=== PATIENT | female | born 1960 | race African-American/Black ===

== ENCOUNTER 2022-06-13 07:39 | Inpatient (IN) | payer OTHER ==
[2022-06-13] MEDS ORDERED: ACETAMINOPHEN 1000 MG/100 ML BAG IVPB ONE (08:14)
[2022-06-13] MEDS ORDERED: SODIUM CHLORIDE 0.9% 500 ML INFUS.BAG IV ONE ×2 (08:14→09:32)
[2022-06-13] MEDS ORDERED: PANTOPRAZOLE SODIUM 40 MG VIAL IVPUSH ONE (08:31)
[2022-06-13 08:32] LABS: EOS % 0.1 % (0-4.5); HEMATOCRIT 25.3 % (32.4-45.2); HEMOGLOBIN 8.3 GM/dL (10.7-15.3); LYMPH % 21.3 % (8-40); MCH 29.2 pg (25.7-33.7); MCHC 32.7 g/dl (32.0-36.0); MEAN CELL VOLUME 89.4 fl (80-96); MEAN PLT VOLUME 7.9 fl (7.5-11.1); MONO % 7.8 % (3.8-10.2); NEUT % 69.8 % (42.8-82.8); PLATELET COUNT 194 10^3/uL (134-434); RBC 2.83 M/mm3 (3.60-5.2); RDW 16.4 % (11.6-15.6); WHITE BLOOD COUNT 4.5 K/mm3 (4.0-10.0)
[2022-06-13 08:38] LABS: INR 1.23 (0.83-1.09); PROTHROMBIN TIME (PATIENT) 14.2 SEC (9.7-13.0)
[2022-06-13 08:40] LABS: ACTIVATED PTT 34.8 SECONDS (25.2-36.5)
[2022-06-13 08:41] LABS: VENOUS BASE EXCESS 6.1 mmol/L (-2-2); VENOUS O2 SATURATION 86.7 % (70-80); VENOUS PH 7.459 (7.310-7.410)
[2022-06-13] MEDS ORDERED: CEFEPIME HCL/D5W 1 GM/50 ML BAG IVPB ONE (08:41)
[2022-06-13] MEDS ORDERED: VANCOMYCIN 1,000 MG in DEXTROSE 5%-WATER - 250 ML IVPB ONE (08:41)
[2022-06-13 08:43] LABS: PH,URINE 7.5 (5.0-8.0); URINE APPEARANCE CLEAR; URINE BILIRUBIN NEGATIVE (NEGATIVE); URINE COLOR YELLOW; URINE GLUCOSE (UA) 2+ (NEGATIVE); URINE KETONE NEGATIVE (NEGATIVE); URINE LEUK ESTERASE NEGATIVE (NEGATIVE); URINE NITRITE NEGATIVE (NEGATIVE); URINE PROTEIN TRACE (NEGATIVE); URINE UROBILINOGEN 0.2 mg/dL (0.2-1.0)
[2022-06-13 08:47] LABS: CHLORIDE 106 mmol/L (98-107); SODIUM 143 mmol/L (136-145)
[2022-06-13 08:48] LABS: CALCIUM 8.5 mg/dL (8.5-10.1)
[2022-06-13 08:49] LABS: ALBUMIN 2.7 g/dl (3.4-5.0); ANION GAP 8 MMOL/L (8-16); BLOOD UREA NITROGEN 22.4 mg/dL (7-18); CO2 29 mmol/L (21-32); GLUCOSE,RANDOM 361 mg/dL (74-106)
[2022-06-13 08:52] LABS: CREATININE 0.8 mg/dL (0.55-1.3); SGOT/AST 86 U/L (15-37); SGPT/ALT 94 U/L (13-61)
[2022-06-13 08:53] LABS: TOT PROT 6.9 g/dl (6.4-8.2)
[2022-06-13] MEDS ORDERED: VANCOMYCIN/WATER FOR INJ (PEG) 1,000 MG/200 ML BAG IVPB ONE (08:53)
[2022-06-13 08:54] LABS: BILIRUBIN,TOTAL 0.4 mg/dL (0.2-1)
[2022-06-13] MEDS ORDERED: CEFEPIME 1 GM/100 ML BAG IVPB ONE (08:54)
[2022-06-13 08:55] LABS: ALK PHOS 127 U/L (45-117)
[2022-06-13] MEDS ORDERED: ACYCLOVIR INJECTION 560 MG in DEXTROSE 5%-WATER - 100 ML IVPB ONE (17:26)
[2022-06-13 17:32] LABS: CSF APPEARANCE BLOODY (CLEAR); CSF COLOR RED (COLORLESS)
[2022-06-13 19:03] LABS: BF GLUCOSE (CSF ONLY) 234 mg/dL (40-70)
[2022-06-14 04:39] VITALS: BMI 28.5
[2022-06-14 07:16] LABS: BASO % 0.4 % (0-2.0); EOS % 2.4 % (0-4.5); HEMATOCRIT 22.5 % (32.4-45.2); HEMOGLOBIN 7.2 GM/dL (10.7-15.3); LYMPH % 17.9 % (8-40); MCH 28.5 pg (25.7-33.7); MCHC 31.8 g/dl (32.0-36.0); MEAN CELL VOLUME 89.5 fl (80-96); MONO % 12.1 % (3.8-10.2); NEUT % 67.2 % (42.8-82.8); PLATELET COUNT 133 10^3/uL (134-434); RBC 2.51 M/mm3 (3.60-5.2); RDW 16.4 % (11.6-15.6); WHITE BLOOD COUNT 3.1 K/mm3 (4.0-10.0)
[2022-06-14 07:45] LABS: ALBUMIN 2.6 g/dl (3.4-5.0); BLOOD UREA NITROGEN 9.7 mg/dL (7-18); CALCIUM 8.7 mg/dL (8.5-10.1)
[2022-06-14 07:47] LABS: CREATININE 0.4 mg/dL (0.55-1.3)
[2022-06-14 07:49] LABS: BILIRUBIN,TOTAL 0.7 mg/dL (0.2-1); TOT PROT 6.2 g/dl (6.4-8.2)
[2022-06-14] MEDS ORDERED: SODIUM CHLORIDE 0.45%/POT 20 MEQ/1,000 ML INFUS.BAG IV SCH (08:45)
[2022-06-14] MEDS ORDERED: FUROSEMIDE 40 MG/4 ML INJECTABLE VIAL IVPUSH ONE (09:00)
[2022-06-14] MEDS: KCL 10 MEQ IVPB 10 MEQ/100 ML INFUS.BAG IVPB SCH ×2 (09:23→10:45)
[2022-06-14] MEDS ORDERED: FENTANYL PATCH WASTE TD PRN (10:57)
[2022-06-14] MEDS ORDERED: PANTOPRAZOLE SODIUM 40 MG VIAL IVPUSH SCH (11:00)
[2022-06-14] MEDS ORDERED: fentaNYL 25mcg/hr PATCH.TD72 TD SCH (11:00)
[2022-06-14] MEDS ORDERED: PIPERACILLIN/TAZOB 3.375 GM 3.375 GM in DEXTROSE 5%-WATER - 50 ML IVPB SCH ×2 (11:15→11:45)
[2022-06-14 11:25] LABS: MAGNESIUM 2.1 mg/dL (1.8-2.4)
[2022-06-14] MEDS: INSULIN (NOVOLOG) ASPART 100 UNITS/ML 10ML VIAL SQ SCH ×3 (11:25→21:12)
[2022-06-14] MEDS: AMINO ACIDS 4.25%/D5W 1,000 ML IV SCH (14:04)
[2022-06-14] MEDS: ARTIFICIAL TEARS (POLYVINYL ALCOHOL) OPTH DROPS OU SCH ×2 (14:51→21:12)
[2022-06-14] MEDS: VANCOMYCIN/WATER FOR INJ (PEG) 1,000 MG/200 ML BAG IVPB SCH (15:11)
[2022-06-14] MEDS: CEFEPIME 1 GM in DEXTROSE 5%-WATER 100 ML IVPB SCH (15:11)
[2022-06-14] MEDS: ACYCLOVIR INJECTION 600 MG in DEXTROSE 5%-WATER - 100 ML IVPB SCH (15:52)
[2022-06-14] MEDS: ATORVASTATIN CA 20 MG TABLET (FP) GT SCH (21:11)
[2022-06-14] MEDS: POLYETHYLENE GLYCOL (HEALTHYLAX) 3350 17 GM PACKET GT SCH (21:11)
[2022-06-14] MEDS: levETIRAcetam 500 MG/5 ML ORAL SOLUTION (UNIT-DOSE CUPS) GT SCH (21:12)
[2022-06-15] MEDS: CEFEPIME 1 GM in DEXTROSE 5%-WATER 100 ML IVPB SCH ×3 (01:31→17:51)
[2022-06-15] MEDS: ACYCLOVIR INJECTION 600 MG in DEXTROSE 5%-WATER - 100 ML IVPB SCH ×3 (01:31→17:51)
[2022-06-15] MEDS: VANCOMYCIN/WATER FOR INJ (PEG) 1,000 MG/200 ML BAG IVPB SCH ×2 (03:08→14:33)
[2022-06-15] MEDS: INSULIN (NOVOLOG) ASPART 100 UNITS/ML 10ML VIAL SQ SCH ×4 (06:27→21:16)
[2022-06-15] MEDS: ARTIFICIAL TEARS (POLYVINYL ALCOHOL) OPTH DROPS OU SCH ×3 (06:27→21:14)
[2022-06-15 06:46] LABS: BASO % 0.8 % (0-2.0); EOS % 5.1 % (0-4.5); HEMATOCRIT 27.4 % (32.4-45.2); HEMOGLOBIN 8.8 GM/dL (10.7-15.3); LYMPH % 24.7 % (8-40); MCH 28.2 pg (25.7-33.7); MCHC 32.2 g/dl (32.0-36.0); MEAN CELL VOLUME 87.7 fl (80-96); MEAN PLT VOLUME 8.4 fl (7.5-11.1); MONO % 14.9 % (3.8-10.2); NEUT % 54.5 % (42.8-82.8); PLATELET COUNT 124 10^3/uL (134-434); RBC 3.12 M/mm3 (3.60-5.2)
[2022-06-15 06:52] LABS: CALCIUM 8.5 mg/dL (8.5-10.1)
[2022-06-15 06:53] LABS: BLOOD UREA NITROGEN 11.6 mg/dL (7-18)
[2022-06-15 06:56] LABS: CREATININE 0.4 mg/dL (0.55-1.3)
[2022-06-15] MEDS: KCL 10 MEQ IVPB 10 MEQ/100 ML INFUS.BAG IVPB SCH ×2 (09:00→11:10)
[2022-06-15] MEDS: PANTOPRAZOLE SODIUM 40 MG VIAL IVPUSH SCH (10:20)
[2022-06-15] MEDS: POLYETHYLENE GLYCOL (HEALTHYLAX) 3350 17 GM PACKET GT SCH ×2 (10:20→21:14)
[2022-06-15] MEDS: levETIRAcetam 500 MG/5 ML ORAL SOLUTION (UNIT-DOSE CUPS) GT SCH ×2 (10:20→21:14)
[2022-06-15] MEDS: AMINO ACIDS 4.25%/D5W 1,000 ML IV SCH (11:10)
[2022-06-15] MEDS: ATORVASTATIN CA 20 MG TABLET (FP) GT SCH (21:14)
[2022-06-16] MEDS: CEFEPIME 1 GM in DEXTROSE 5%-WATER 100 ML IVPB SCH ×3 (01:12→17:21)
[2022-06-16] MEDS: ACYCLOVIR INJECTION 600 MG in DEXTROSE 5%-WATER - 100 ML IVPB SCH ×3 (01:13→17:22)
[2022-06-16] MEDS: VANCOMYCIN/WATER FOR INJ (PEG) 1,000 MG/200 ML BAG IVPB SCH ×2 (02:01→14:32)
[2022-06-16] MEDS: ARTIFICIAL TEARS (POLYVINYL ALCOHOL) OPTH DROPS OU SCH ×3 (05:54→21:20)
[2022-06-16] MEDS: INSULIN (NOVOLOG) ASPART 100 UNITS/ML 10ML VIAL SQ SCH ×4 (06:37→21:20)
[2022-06-16 07:53] LABS: CALCIUM 8.9 mg/dL (8.5-10.1)
[2022-06-16 07:54] LABS: ALBUMIN 2.6 g/dl (3.4-5.0); BLOOD UREA NITROGEN 11.8 mg/dL (7-18); MAGNESIUM 1.9 mg/dL (1.8-2.4)
[2022-06-16 07:56] LABS: CREATININE 0.4 mg/dL (0.55-1.3)
[2022-06-16 07:58] LABS: BILIRUBIN,TOTAL 0.6 mg/dL (0.2-1); TOT PROT 6.1 g/dl (6.4-8.2)
[2022-06-16] MEDS: levETIRAcetam 500 MG/5 ML ORAL SOLUTION (UNIT-DOSE CUPS) GT SCH ×2 (09:27→21:20)
[2022-06-16] MEDS: POLYETHYLENE GLYCOL (HEALTHYLAX) 3350 17 GM PACKET GT SCH ×2 (09:27→21:20)
[2022-06-16] MEDS: PANTOPRAZOLE SODIUM 40 MG VIAL IVPUSH SCH (09:28)
[2022-06-16] MEDS: AMINO ACIDS 4.25%/D5W 1,000 ML IV SCH (11:00)
[2022-06-16 12:55] LABS: BASO % 0.4 % (0-2.0); EOS % 3.9 % (0-4.5); HEMATOCRIT 27.4 % (32.4-45.2); HEMOGLOBIN 8.8 GM/dL (10.7-15.3); MCH 28.3 pg (25.7-33.7); MCHC 32.2 g/dl (32.0-36.0); MEAN CELL VOLUME 87.9 fl (80-96); MEAN PLT VOLUME 8.4 fl (7.5-11.1); NEUT % 68.7 % (42.8-82.8); PLATELET COUNT 153 10^3/uL (134-434); RBC 3.12 M/mm3 (3.60-5.2); RDW 16.8 % (11.6-15.6); WHITE BLOOD COUNT 2.5 K/mm3 (4.0-10.0)
[2022-06-16] MEDS: ATORVASTATIN CA 20 MG TABLET (FP) GT SCH (21:20)
[2022-06-17] MEDS: CEFEPIME 1 GM in DEXTROSE 5%-WATER 100 ML IVPB SCH ×3 (01:07→17:55)
[2022-06-17] MEDS: ACYCLOVIR INJECTION 600 MG in DEXTROSE 5%-WATER - 100 ML IVPB SCH ×3 (01:44→17:28)
[2022-06-17] MEDS: VANCOMYCIN/WATER FOR INJ (PEG) 1,000 MG/200 ML BAG IVPB SCH (03:02)
[2022-06-17] MEDS: ARTIFICIAL TEARS (POLYVINYL ALCOHOL) OPTH DROPS OU SCH ×3 (06:20→21:54)
[2022-06-17] MEDS: INSULIN (NOVOLOG) ASPART 100 UNITS/ML 10ML VIAL SQ SCH ×4 (06:22→23:01)
[2022-06-17 07:06] LABS: BASO % 0.5 % (0-2.0); EOS % 2.8 % (0-4.5); HEMATOCRIT 31.9 % (32.4-45.2); HEMOGLOBIN 10.1 GM/dL (10.7-15.3); MCH 28.2 pg (25.7-33.7); MCHC 31.7 g/dl (32.0-36.0); MEAN CELL VOLUME 88.8 fl (80-96); MEAN PLT VOLUME 8.6 fl (7.5-11.1); MONO % 10.3 % (3.8-10.2); NEUT % 62.4 % (42.8-82.8); PLATELET COUNT 187 10^3/uL (134-434); RBC 3.59 M/mm3 (3.60-5.2); RDW 16.5 % (11.6-15.6); WHITE BLOOD COUNT 3.1 K/mm3 (4.0-10.0)
[2022-06-17 07:57] LABS: CALCIUM 8.7 mg/dL (8.5-10.1)
[2022-06-17 08:00] LABS: CREATININE 0.4 mg/dL (0.55-1.3)
[2022-06-17] MEDS: KCL 10 MEQ IVPB 10 MEQ/100 ML INFUS.BAG IVPB SCH ×2 (09:13→11:20)
[2022-06-17] MEDS: levETIRAcetam 500 MG/5 ML ORAL SOLUTION (UNIT-DOSE CUPS) GT SCH ×2 (09:13→21:54)
[2022-06-17] MEDS: POLYETHYLENE GLYCOL (HEALTHYLAX) 3350 17 GM PACKET GT SCH ×2 (09:13→21:54)
[2022-06-17] MEDS: PANTOPRAZOLE SODIUM 40 MG VIAL IVPUSH SCH (09:18)
[2022-06-17] MEDS: AMINO ACIDS 4.25%/D5W 1,000 ML IV SCH (12:18)
[2022-06-17] MEDS ORDERED: ACETAMINOPHEN 1000 MG/100 ML BAG IVPB ONE (18:39)
[2022-06-17] MEDS: ATORVASTATIN CA 20 MG TABLET (FP) GT SCH (21:54)
[2022-06-18] MEDS: CEFEPIME 1 GM in DEXTROSE 5%-WATER 100 ML IVPB SCH ×3 (01:38→17:56)
[2022-06-18] MEDS: ACYCLOVIR INJECTION 600 MG in DEXTROSE 5%-WATER - 100 ML IVPB SCH ×3 (02:59→18:13)
[2022-06-18] MEDS: ARTIFICIAL TEARS (POLYVINYL ALCOHOL) OPTH DROPS OU SCH ×3 (07:11→21:36)
[2022-06-18] MEDS: INSULIN (NOVOLOG) ASPART 100 UNITS/ML 10ML VIAL SQ SCH ×4 (07:11→22:49)
[2022-06-18] MEDS: POLYETHYLENE GLYCOL (HEALTHYLAX) 3350 17 GM PACKET GT SCH ×2 (09:41→21:36)
[2022-06-18] MEDS: levETIRAcetam 500 MG/5 ML ORAL SOLUTION (UNIT-DOSE CUPS) GT SCH ×2 (09:41→21:37)
[2022-06-18] MEDS: PANTOPRAZOLE SODIUM 40 MG VIAL IVPUSH SCH (09:42)
[2022-06-18] MEDS: AMINO ACIDS 4.25%/D5W 1,000 ML IV SCH (12:44)
[2022-06-18] MEDS: ATORVASTATIN CA 20 MG TABLET (FP) GT SCH (21:37)
[2022-06-19] MEDS: CEFEPIME 1 GM in DEXTROSE 5%-WATER 100 ML IVPB SCH ×3 (01:24→17:42)
[2022-06-19] MEDS: ACYCLOVIR INJECTION 600 MG in DEXTROSE 5%-WATER - 100 ML IVPB SCH ×2 (02:09→10:15)
[2022-06-19] MEDS: ARTIFICIAL TEARS (POLYVINYL ALCOHOL) OPTH DROPS OU SCH ×3 (06:56→21:22)
[2022-06-19] MEDS: INSULIN (NOVOLOG) ASPART 100 UNITS/ML 10ML VIAL SQ SCH ×4 (06:56→21:20)
[2022-06-19 08:03] LABS: HEMATOCRIT 29.2 % (32.4-45.2); HEMOGLOBIN 9.4 GM/dL (10.7-15.3); MCH 28.4 pg (25.7-33.7); MCHC 32.3 g/dl (32.0-36.0); MEAN PLT VOLUME 8.4 fl (7.5-11.1); PLATELET COUNT 191 10^3/uL (134-434); RBC 3.32 M/mm3 (3.60-5.2); RDW 16.2 % (11.6-15.6); WHITE BLOOD COUNT 4.5 K/mm3 (4.0-10.0)
[2022-06-19 08:23] LABS: CHLORIDE 114 mmol/L (98-107); SODIUM 148 mmol/L (136-145)
[2022-06-19 08:29] LABS: ALBUMIN 2.7 g/dl (3.4-5.0); BLOOD UREA NITROGEN 9.6 mg/dL (7-18); CALCIUM 9.1 mg/dL (8.5-10.1); CO2 24 mmol/L (21-32); GLUCOSE,RANDOM 189 mg/dL (74-106)
[2022-06-19 08:31] LABS: CREATININE 0.4 mg/dL (0.55-1.3); SGOT/AST 20 U/L (15-37)
[2022-06-19 08:32] LABS: SGPT/ALT 28 U/L (13-61)
[2022-06-19 08:33] LABS: BILIRUBIN,TOTAL 0.3 mg/dL (0.2-1); TOT PROT 6.2 g/dl (6.4-8.2)
[2022-06-19 08:35] LABS: ALK PHOS 86 U/L (45-117)
[2022-06-19 08:36] LABS: ANION GAP 11 MMOL/L (8-16)
[2022-06-19 09:57] LABS: ANISOCYTOSIS 0; HELMET CELLS 0; HOWELL-JOLLY BODIES 0; MACROCYTOSIS 0; OVALOCYTE 0; ROULEAU 0; SICKELED CELLS 0; TARGET CELLS 0; TEAR DROP CELLS 0; TOXIC GRANULATION 0
[2022-06-19] MEDS ORDERED: MAGNESIUM 1GM/D5W - 1 GM/100 ML IVPB IVPB ONE (10:00)
[2022-06-19] MEDS: levETIRAcetam 500 MG/5 ML ORAL SOLUTION (UNIT-DOSE CUPS) GT SCH ×2 (10:24→21:22)
[2022-06-19] MEDS: KCL 10 MEQ IVPB 10 MEQ/100 ML INFUS.BAG IVPB SCH ×3 (10:24→13:31)
[2022-06-19] MEDS: POLYETHYLENE GLYCOL (HEALTHYLAX) 3350 17 GM PACKET GT SCH ×2 (10:24→21:20)
[2022-06-19] MEDS: PANTOPRAZOLE SODIUM 40 MG VIAL IVPUSH SCH (10:50)
[2022-06-19] MEDS: VANCOMYCIN/WATER FOR INJ (PEG) 1,000 MG/200 ML BAG IVPB SCH (13:31)
[2022-06-19] MEDS: AMINO ACIDS 4.25%/D5W 1,000 ML IV SCH (17:41)
[2022-06-19] MEDS: ATORVASTATIN CA 20 MG TABLET (FP) GT SCH (21:22)
[2022-06-20] MEDS: CEFEPIME 1 GM in DEXTROSE 5%-WATER 100 ML IVPB SCH ×3 (03:49→17:59)
[2022-06-20] MEDS: ARTIFICIAL TEARS (POLYVINYL ALCOHOL) OPTH DROPS OU SCH ×3 (06:16→21:40)
[2022-06-20] MEDS: INSULIN (NOVOLOG) ASPART 100 UNITS/ML 10ML VIAL SQ SCH ×4 (07:05→21:43)
[2022-06-20] MEDS: POLYETHYLENE GLYCOL (HEALTHYLAX) 3350 17 GM PACKET GT SCH ×2 (10:55→21:41)
[2022-06-20] MEDS: levETIRAcetam 500 MG/5 ML ORAL SOLUTION (UNIT-DOSE CUPS) GT SCH ×2 (10:56→21:41)
[2022-06-20] MEDS: PANTOPRAZOLE SODIUM 40 MG VIAL IVPUSH SCH (10:56)
[2022-06-20] MEDS: VANCOMYCIN/WATER FOR INJ (PEG) 1,000 MG/200 ML BAG IVPB SCH (13:00)
[2022-06-20 13:33] LABS: BASO % 0.3 % (0-2.0); EOS % 1.6 % (0-4.5); HEMATOCRIT 32.7 % (32.4-45.2); HEMOGLOBIN 10.6 GM/dL (10.7-15.3); LYMPH % 18.1 % (8-40); MCH 28.6 pg (25.7-33.7); MCHC 32.3 g/dl (32.0-36.0); MEAN CELL VOLUME 88.6 fl (80-96); MEAN PLT VOLUME 8.2 fl (7.5-11.1); MONO % 10.1 % (3.8-10.2); NEUT % 69.9 % (42.8-82.8); PLATELET COUNT 183 10^3/uL (134-434); RBC 3.69 M/mm3 (3.60-5.2); RDW 16.4 % (11.6-15.6); WHITE BLOOD COUNT 3.8 K/mm3 (4.0-10.0)
[2022-06-20 13:53] LABS: ALBUMIN 2.8 g/dl (3.4-5.0); BLOOD UREA NITROGEN 10.6 mg/dL (7-18); CALCIUM 8.8 mg/dL (8.5-10.1); MAGNESIUM 2.1 mg/dL (1.8-2.4)
[2022-06-20 13:56] LABS: CREATININE 0.4 mg/dL (0.55-1.3)
[2022-06-20 13:58] LABS: BILIRUBIN,TOTAL 0.4 mg/dL (0.2-1); TOT PROT 6.6 g/dl (6.4-8.2)
[2022-06-20] MEDS: AMINO ACIDS 4.25%/D5W 1,000 ML IV SCH (18:33)
[2022-06-20] MEDS: ATORVASTATIN CA 20 MG TABLET (FP) GT SCH (21:41)
[2022-06-21] MEDS: CEFEPIME 1 GM in DEXTROSE 5%-WATER 100 ML IVPB SCH ×3 (01:32→18:45)
[2022-06-21] MEDS: INSULIN (NOVOLOG) ASPART 100 UNITS/ML 10ML VIAL SQ SCH ×4 (06:34→21:58)
[2022-06-21] MEDS: ARTIFICIAL TEARS (POLYVINYL ALCOHOL) OPTH DROPS OU SCH ×3 (06:34→21:58)
[2022-06-21 08:01] LABS: BASO % 0.1 % (0-2.0); EOS % 0.7 % (0-4.5); HEMOGLOBIN 11.3 GM/dL (10.7-15.3); LYMPH % 7.4 % (8-40); MCH 29.5 pg (25.7-33.7); MCHC 33.3 g/dl (32.0-36.0); MEAN CELL VOLUME 88.6 fl (80-96); MEAN PLT VOLUME 7.8 fl (7.5-11.1); MONO % 7.4 % (3.8-10.2); NEUT % 84.4 % (42.8-82.8); PLATELET COUNT 191 10^3/uL (134-434); RBC 3.84 M/mm3 (3.60-5.2); RDW 16.3 % (11.6-15.6)
[2022-06-21 08:22] LABS: CHLORIDE 113 mmol/L (98-107); SODIUM 145 mmol/L (136-145)
[2022-06-21 08:28] LABS: SGPT/ALT 27 U/L (13-61)
[2022-06-21 08:29] LABS: CREATININE 0.6 mg/dL (0.55-1.3)
[2022-06-21 08:30] LABS: BILIRUBIN,TOTAL 0.5 mg/dL (0.2-1); TOT PROT 6.5 g/dl (6.4-8.2)
[2022-06-21 08:32] LABS: ALK PHOS 104 U/L (45-117)
[2022-06-21 08:44] LABS: ALBUMIN 2.8 g/dl (3.4-5.0); CALCIUM 9.1 mg/dL (8.5-10.1)
[2022-06-21 08:45] LABS: BLOOD UREA NITROGEN 12.4 mg/dL (7-18); CO2 22 mmol/L (21-32); GLUCOSE,RANDOM 240 mg/dL (74-106)
[2022-06-21 08:47] LABS: SGOT/AST 25 U/L (15-37)
[2022-06-21 09:00] LABS: ANION GAP 10 MMOL/L (8-16)
[2022-06-21] MEDS: PANTOPRAZOLE SODIUM 40 MG VIAL IVPUSH SCH (10:31)
[2022-06-21] MEDS: POLYETHYLENE GLYCOL (HEALTHYLAX) 3350 17 GM PACKET GT SCH ×2 (10:32→21:58)
[2022-06-21] MEDS: levETIRAcetam 500 MG/5 ML ORAL SOLUTION (UNIT-DOSE CUPS) GT SCH ×2 (10:32→21:58)
[2022-06-21] MEDS: KCL 10 MEQ IVPB 10 MEQ/100 ML INFUS.BAG IVPB SCH ×3 (11:32→16:54)
[2022-06-21] MEDS: VANCOMYCIN/WATER FOR INJ (PEG) 1,000 MG/200 ML BAG IVPB SCH (14:06)
[2022-06-21] MEDS: ATORVASTATIN CA 20 MG TABLET (FP) GT SCH (21:58)
[2022-06-22] MEDS: CEFEPIME 1 GM in DEXTROSE 5%-WATER 100 ML IVPB SCH ×3 (01:00→18:01)
[2022-06-22] MEDS: ARTIFICIAL TEARS (POLYVINYL ALCOHOL) OPTH DROPS OU SCH ×3 (05:01→21:17)
[2022-06-22] MEDS: INSULIN (NOVOLOG) ASPART 100 UNITS/ML 10ML VIAL SQ SCH ×4 (06:04→21:23)
[2022-06-22] MEDS: levETIRAcetam 500 MG/5 ML ORAL SOLUTION (UNIT-DOSE CUPS) GT SCH ×2 (11:18→21:18)
[2022-06-22] MEDS: PANTOPRAZOLE SODIUM 40 MG VIAL IVPUSH SCH (11:18)
[2022-06-22 12:25] LABS: CHLORIDE 111 mmol/L (98-107); SODIUM 141 mmol/L (136-145)
[2022-06-22] MEDS: POLYETHYLENE GLYCOL (HEALTHYLAX) 3350 17 GM PACKET GT SCH ×2 (12:27→21:15)
[2022-06-22 12:31] LABS: ALBUMIN 2.6 g/dl (3.4-5.0); BLOOD UREA NITROGEN 11.5 mg/dL (7-18); CALCIUM 9.2 mg/dL (8.5-10.1); CO2 25 mmol/L (21-32); GLUCOSE,RANDOM 133 mg/dL (74-106)
[2022-06-22 12:33] LABS: CREATININE 0.5 mg/dL (0.55-1.3); SGOT/AST 17 U/L (15-37); SGPT/ALT 23 U/L (13-61)
[2022-06-22 12:35] LABS: BILIRUBIN,TOTAL 0.6 mg/dL (0.2-1); TOT PROT 6.1 g/dl (6.4-8.2)
[2022-06-22 12:36] LABS: ALK PHOS 109 U/L (45-117)
[2022-06-22 12:42] LABS: ANION GAP 5 MMOL/L (8-16)
[2022-06-22 12:45] LABS: CHLORIDE 110 mmol/L (98-107); SODIUM 143 mmol/L (136-145)
[2022-06-22 12:47] LABS: BLOOD UREA NITROGEN 11.2 mg/dL (7-18); CALCIUM 9.2 mg/dL (8.5-10.1)
[2022-06-22 12:48] LABS: ALBUMIN 2.6 g/dl (3.4-5.0); CO2 23 mmol/L (21-32); GLUCOSE,RANDOM 160 mg/dL (74-106)
[2022-06-22 12:51] LABS: CREATININE 0.5 mg/dL (0.55-1.3); SGOT/AST 17 U/L (15-37); SGPT/ALT 23 U/L (13-61)
[2022-06-22 12:52] LABS: BILIRUBIN,TOTAL 0.7 mg/dL (0.2-1); TOT PROT 6.2 g/dl (6.4-8.2)
[2022-06-22 12:53] LABS: ALK PHOS 111 U/L (45-117)
[2022-06-22 12:54] LABS: ANION GAP 11 MMOL/L (8-16)
[2022-06-22] MEDS: VANCOMYCIN/WATER FOR INJ (PEG) 1,000 MG/200 ML BAG IVPB SCH (13:00)
[2022-06-22] MEDS: SILVER SULFADIAZINE 1% TOP CREAM 50 GM JAR TP SCH (16:32)
[2022-06-22] MEDS: KCL 10 MEQ IVPB 10 MEQ/100 ML INFUS.BAG IVPB SCH ×3 (16:32→18:01)
[2022-06-22] MEDS: POTASSIUM CHLORIDE ORAL LIQUID 20 MEQ/15 ML PEG SCH (21:18)
[2022-06-22] MEDS: ATORVASTATIN CA 20 MG TABLET (FP) GT SCH (21:18)
[2022-06-23] MEDS: CEFEPIME 1 GM in DEXTROSE 5%-WATER 100 ML IVPB SCH ×3 (01:37→17:28)
[2022-06-23] MEDS: INSULIN (NOVOLOG) ASPART 100 UNITS/ML 10ML VIAL SQ SCH ×4 (06:37→21:29)
[2022-06-23] MEDS: ARTIFICIAL TEARS (POLYVINYL ALCOHOL) OPTH DROPS OU SCH ×3 (06:38→21:28)
[2022-06-23 10:07] LABS: LYME PCR CSF Negative (Negative)
[2022-06-23] MEDS: POLYETHYLENE GLYCOL (HEALTHYLAX) 3350 17 GM PACKET GT SCH ×2 (10:41→21:29)
[2022-06-23] MEDS: PANTOPRAZOLE SODIUM 40 MG VIAL IVPUSH SCH (10:42)
[2022-06-23] MEDS: POTASSIUM CHLORIDE ORAL LIQUID 20 MEQ/15 ML PEG SCH (10:42)
[2022-06-23] MEDS: levETIRAcetam 500 MG/5 ML ORAL SOLUTION (UNIT-DOSE CUPS) GT SCH ×2 (10:43→21:29)
[2022-06-23] MEDS: SILVER SULFADIAZINE 1% TOP CREAM 50 GM JAR TP SCH (10:43)
[2022-06-23 12:59] LABS: ALBUMIN 2.6 g/dl (3.4-5.0); CALCIUM 8.8 mg/dL (8.5-10.1)
[2022-06-23] MEDS: VANCOMYCIN/WATER FOR INJ (PEG) 1,000 MG/200 ML BAG IVPB SCH (13:00)
[2022-06-23 14:31] LABS: BILIRUBIN,TOTAL 0.7 mg/dL (0.2-1); BLOOD UREA NITROGEN 8.6 mg/dL (7-18); CREATININE 0.4 mg/dL (0.55-1.3); TOT PROT 6.3 g/dl (6.4-8.2)
[2022-06-23] MEDS: ATORVASTATIN CA 20 MG TABLET (FP) GT SCH (21:29)
[2022-06-24] MEDS: CEFEPIME 1 GM in DEXTROSE 5%-WATER 100 ML IVPB SCH ×2 (02:22→10:06)
[2022-06-24] MEDS: ARTIFICIAL TEARS (POLYVINYL ALCOHOL) OPTH DROPS OU SCH ×3 (06:21→21:37)
[2022-06-24] MEDS: INSULIN (NOVOLOG) ASPART 100 UNITS/ML 10ML VIAL SQ SCH ×4 (06:28→21:55)
[2022-06-24 08:19] LABS: BASO % 0.5 % (0-2.0); EOS % 0.8 % (0-4.5); HEMATOCRIT 29.8 % (32.4-45.2); HEMOGLOBIN 9.8 GM/dL (10.7-15.3); LYMPH % 15.6 % (8-40); MCH 29.4 pg (25.7-33.7); MEAN CELL VOLUME 88.9 fl (80-96); MEAN PLT VOLUME 8.4 fl (7.5-11.1); MONO % 10.8 % (3.8-10.2); NEUT % 72.3 % (42.8-82.8); PLATELET COUNT 139 10^3/uL (134-434); RBC 3.35 M/mm3 (3.60-5.2); RDW 16.9 % (11.6-15.6)
[2022-06-24 08:45] LABS: CALCIUM 8.8 mg/dL (8.5-10.1)
[2022-06-24 08:46] LABS: ALBUMIN 2.6 g/dl (3.4-5.0); BLOOD UREA NITROGEN 9.1 mg/dL (7-18)
[2022-06-24 08:48] LABS: CREATININE 0.4 mg/dL (0.55-1.3)
[2022-06-24 08:50] LABS: BILIRUBIN,TOTAL 0.4 mg/dL (0.2-1); TOT PROT 6.3 g/dl (6.4-8.2)
[2022-06-24] MEDS: levETIRAcetam 500 MG/5 ML ORAL SOLUTION (UNIT-DOSE CUPS) GT SCH ×2 (10:07→21:37)
[2022-06-24] MEDS: POLYETHYLENE GLYCOL (HEALTHYLAX) 3350 17 GM PACKET GT SCH ×2 (10:08→21:31)
[2022-06-24] MEDS: PANTOPRAZOLE 40 MG TABLET PO SCH (10:09)
[2022-06-24] MEDS: SILVER SULFADIAZINE 1% TOP CREAM 50 GM JAR TP SCH (10:09)
[2022-06-24] MEDS: BACITRACIN/POLYMYXIN B SULFATE 15 GM TUBE TP SCH (13:34)
[2022-06-24] MEDS: ATORVASTATIN CA 20 MG TABLET (FP) GT SCH (21:37)
[2022-06-25] MEDS: ARTIFICIAL TEARS (POLYVINYL ALCOHOL) OPTH DROPS OU SCH (06:10)
[2022-06-25] MEDS: INSULIN (NOVOLOG) ASPART 100 UNITS/ML 10ML VIAL SQ SCH (06:19)
[2022-06-25 06:52] VITALS: TEMP 98.9
[2022-06-25] MEDS: levETIRAcetam 500 MG/5 ML ORAL SOLUTION (UNIT-DOSE CUPS) GT SCH (09:12)
[2022-06-25] MEDS: PANTOPRAZOLE 40 MG TABLET PO SCH (09:12)
[2022-06-25] MEDS: BACITRACIN/POLYMYXIN B SULFATE 15 GM TUBE TP SCH (09:13)
[2022-06-25] MEDS: SILVER SULFADIAZINE 1% TOP CREAM 50 GM JAR TP SCH (09:13)
[2022-06-25] MEDS: POLYETHYLENE GLYCOL (HEALTHYLAX) 3350 17 GM PACKET GT SCH (09:13)
[2022-06-25 10:52] VITALS: BP 97/71; PULSE 109; RESP 12
== END 2022-06-25 21:29 | DRG 720 ==
LOC: JER 07:39 → JERBED 17:28 → J2W 06-14 02:33
PROVIDERS: ADMIT Family Medicine; ATTEND Family Medicine
PROC: 5A1955Z Respiratory Ventilation, Greater than 96 Consecutive Hours (ICD-10-PCS; principal; 2022-06-13)
PROC: 30233N1 Transfusion of Nonautologous Red Blood Cells into Peripheral Vein, Percutaneous Approach (ICD-10-PCS; 2022-06-14)
DX: A41.9 Sepsis, unspecified organism (principal); D61.818 Other pancytopenia; J96.21 Acute and chronic respiratory failure with hypoxia; K56.699 Other intestinal obstruction unspecified as to partial versus complete obstruction; R53.2 Functional quadriplegia; Z93.0 Tracheostomy status; L89.819 Pressure ulcer of head, unspecified stage; D69.6 Thrombocytopenia, unspecified; G81.90 Hemiplegia, unspecified affecting unspecified side; L89.90 Pressure ulcer of unspecified site, unspecified stage; B96.20 Unspecified Escherichia coli [E. coli] as the cause of diseases classified elsewhere; D50.9 Iron deficiency anemia, unspecified; E11.9 Type 2 diabetes mellitus without complications; E78.5 Hyperlipidemia, unspecified; E87.6 Hypokalemia; I10 Essential (primary) hypertension; R00.0 Tachycardia, unspecified; R50.9 Fever, unspecified; Z74.01 Bed confinement status; Z79.4 Long term (current) use of insulin; D72.819 Decreased white blood cell count, unspecified; Z99.11 Dependence on respirator [ventilator] status
CPT/HCPCS: 0241U-QW; 36415; 36430; 70450-TC; 71045-TC-FY; 73630-TC-RT-FY; 74018-TC-FY; 74177-TC; 80048; 80053; 81003; 82042; 82272; 82550; 82553; 82728; 82803; 82945; 82962; 83540; 83550; 83605; 83615; 83735; 84157; 84439; 84443; 84484; 85025; 85610; 85730; 86592; 86644; 86663; 86664; 86665; 86694; 86735; 86765; 86777; 86787; 86788; 86789; 86850; 86900; 86901; 86922; 87040; 87045; 87046; 87070; 87086; 87186; 87205; 87209; 87324; 87449; 87476; 87529; 93005; 93010; 94002; 99291; C9803-CS; G0480; J3480; P9058; U0003; U0005

== ENCOUNTER 2022-06-30 20:36 | Inpatient (IN) | payer OTHER ==
[2022-06-30] MEDS ORDERED: ACETAMINOPHEN 1000 MG/100 ML BAG IVPB ONE (20:42)
[2022-06-30] MEDS ORDERED: VANCOMYCIN 1 GM in D5W (PRE-DOCKED) 1,000 MG/250 ML IVPB ONE (20:44)
[2022-06-30] MEDS ORDERED: SODIUM CHLORIDE 0.9% 500 ML INFUS.BAG IV ONE (20:44)
[2022-06-30] MEDS ORDERED: PIPERACILLIN/TAZOB 4.5 GM 4.5 GM in DEXTROSE 5%-WATER 100 ML IVPB ONE (20:44)
[2022-06-30] MEDS ORDERED: IBUPROFEN 800 MG/8 ML IJ IVPB ONE ×2 (21:04→21:06)
[2022-06-30] MEDS ORDERED: VANCOMYCIN/WATER FOR INJ (PEG) 1,000 MG/200 ML BAG IVPB ONE (22:15)
[2022-06-30] MEDS ORDERED: PIPERACILLIN/TAZOB 3.375 GM 3.375 GM/50 ML BAG IVPB ONE (22:15)
[2022-06-30 22:39] LABS: VENOUS BASE EXCESS 0.1 mmol/L (-2-2); VENOUS O2 SATURATION 37.7 % (70-80); VENOUS PCO2 42.5 mmHg (38-52); VENOUS PH 7.39 (7.310-7.410)
[2022-06-30 22:48] LABS: INR 1.48 (0.83-1.09); PROTHROMBIN TIME (PATIENT) 17.1 SEC (9.7-13.0)
[2022-06-30 22:51] LABS: ACTIVATED PTT 38.2 SECONDS (25.2-36.5)
[2022-06-30 23:00] LABS: CHLORIDE 114 mmol/L (98-107); SODIUM 145 mmol/L (136-145)
[2022-06-30 23:02] LABS: ALBUMIN 2.6 g/dl (3.4-5.0); ANION GAP 9 MMOL/L (8-16); BLOOD UREA NITROGEN 30.6 mg/dL (7-18); CALCIUM 7.7 mg/dL (8.5-10.1); CO2 23 mmol/L (21-32); MAGNESIUM 2.3 mg/dL (1.8-2.4)
[2022-06-30 23:05] LABS: CREATININE 1.4 mg/dL (0.55-1.3); SGPT/ALT 236 U/L (13-61)
[2022-06-30 23:06] LABS: SGOT/AST 315 U/L (15-37)
[2022-06-30 23:08] LABS: ALK PHOS 100 U/L (45-117); BILIRUBIN,TOTAL 0.4 mg/dL (0.2-1); TOT PROT 5.8 g/dl (6.4-8.2)
[2022-06-30 23:11] LABS: GLUCOSE,RANDOM 436 mg/dL (74-106); LACTIC ACID 4.1 mmol/L (0.4-2.0)
[2022-07-01 00:24] LABS: EPI CELLS 7 /uL (0-25.1); HYALINE CASTS 2 /uL (0-3.1); URINE APPEARANCE CLOUDY; URINE BACTERIA 566 /uL (0-1359); URINE BILIRUBIN NEGATIVE (NEGATIVE); URINE COLOR YELLOW; URINE GLUCOSE (UA) NEGATIVE (NEGATIVE); URINE KETONE NEGATIVE (NEGATIVE); URINE LEUK ESTERASE 3+ (NEGATIVE); URINE NITRITE NEGATIVE (NEGATIVE); URINE PROTEIN 1+ (NEGATIVE); URINE UROBILINOGEN 0.2 mg/dL (0.2-1.0); URINE WBC 448 /uL (0-25.8)
[2022-07-01 00:37] LABS: URINE RBC 226.6 /uL (0-23.9)
[2022-07-01 00:48] LABS: YEAST MOD (NEGATIVE)
[2022-07-01] MEDS ORDERED: LACTATED RINGERS SOLUTION 1,000 ML/1,000 ML INFUS.BAG IV STA ×3 (01:59→03:35)
[2022-07-01] MEDS ORDERED: INSULIN REGULAR HUMAN 100 UNITS/ML *VIAL IVPUSH STA ×2 (02:49→05:11)
[2022-07-01] MEDS: NOREPINEPHRINE BITARTRATE 4,000 MCG in DEXTROSE 5%-WATER - 496 ML IV SCH ×2 (03:38→21:09)
[2022-07-01] MEDS: HEPARIN NA (PORCINE) 5,000 UNITS/ML 1ML VIAL SQ SCH ×3 (06:24→21:20)
[2022-07-01] MEDS: DOCUSATE NA 100 MG/10 ML UNIT-DOSE CUPS PEG SCH ×3 (06:24→21:20)
[2022-07-01] MEDS: LACTATED RINGERS SOLUTION 1,000 ML/1,000 ML INFUS.BAG IV SCH (07:12)
[2022-07-01 07:37] LABS: HEMATOCRIT 22.1 % (32.4-45.2); HEMOGLOBIN 7.1 GM/dL (10.7-15.3); MCH 28.8 pg (25.7-33.7); MCHC 32.1 g/dl (32.0-36.0); MEAN CELL VOLUME 89.6 fl (80-96); MEAN PLT VOLUME 11.2 fl (7.5-11.1); PLATELET COUNT 76 10^3/uL (134-434); RBC 2.47 M/mm3 (3.60-5.2); RDW 16.6 % (11.6-15.6); WHITE BLOOD COUNT 7.5 K/mm3 (4.0-10.0)
[2022-07-01 07:47] LABS: CHLORIDE 117 mmol/L (98-107); SODIUM 150 mmol/L (136-145)
[2022-07-01 07:54] LABS: BLOOD UREA NITROGEN 27.9 mg/dL (7-18); CALCIUM 7.4 mg/dL (8.5-10.1); CO2 22 mmol/L (21-32); GLUCOSE,RANDOM 243 mg/dL (74-106)
[2022-07-01 07:56] LABS: CREATININE 1.1 mg/dL (0.55-1.3)
[2022-07-01 07:57] LABS: LACTIC ACID 4.9 mmol/L (0.4-2.0)
[2022-07-01 07:58] LABS: PHOSPHOROUS 3.7 mg/dL (2.5-4.9)
[2022-07-01 08:01] LABS: ANION GAP 11 MMOL/L (8-16)
[2022-07-01 08:08] LABS: ALBUMIN 2.1 g/dl (3.4-5.0)
[2022-07-01] MEDS ORDERED: POTASSIUM CHLORIDE TABS 20 MEQ TABLET.ER (FP) PO ONE (08:09)
[2022-07-01 08:11] LABS: BILIRUBIN,DIRECT 0.2 mg/dL (0.0-0.2)
[2022-07-01 08:13] LABS: BILIRUBIN,TOTAL 0.5 mg/dL (0.2-1); TOT PROT 5.1 g/dl (6.4-8.2)
[2022-07-01] MEDS: KCL 10 MEQ IVPB 10 MEQ/100 ML INFUS.BAG IVPB SCH ×3 (09:55→12:16)
[2022-07-01] MEDS ORDERED: PIPERACILLIN/TAZOB 2.25 GM 2.25 GM in DEXTROSE 5%-WATER - 50 ML IVPB SCH (10:00)
[2022-07-01] MEDS: PANTOPRAZOLE SODIUM 40 MG VIAL IVPUSH SCH (10:32)
[2022-07-01] MEDS: levETIRAcetam 500 MG/5 ML ORAL SOLUTION (UNIT-DOSE CUPS) GT SCH ×2 (10:32→21:20)
[2022-07-01] MEDS ORDERED: POTASSIUM CHLORIDE ORAL LIQUID 20 MEQ/15 ML PO ONE (10:33)
[2022-07-01] MEDS: INSULIN SLIDING SCALE (NOVOLOG) 1 VIAL SQ SCH ×3 (10:38→21:35)
[2022-07-01] MEDS ORDERED: POTASSIUM PHOSPHATE 30 MM in DEXTROSE 5%-WATER - 250 ML IVPB ONE (12:30)
[2022-07-01 12:31] LABS: ALLENS TEST POSITIVE; ARTERIAL BLD GAS O2 SATURATION 99.3 % (95-98); ARTERIAL BLOOD GAS BASE EXCESS -3.5 mmol/L (-2-2); ARTERIAL BLOOD GAS PO2 186.1 mmHg (80-100); ARTERIAL BLOOD GAS pH 7.441 (7.350-7.450)
[2022-07-01 12:32] LABS: VENT MODE AC; VENT RATE 14
[2022-07-01] MEDS: MEROPENEM 1 GM in DEXTROSE 5%-WATER 100 ML IVPB SCH ×2 (13:01→17:44)
[2022-07-01 13:41] LABS: LACTIC ACID 2.4 mmol/L (0.4-2.0)
[2022-07-01] MEDS ORDERED: SILVER SULFADIAZINE 1% TOP CREAM 50 GM JAR TP ONE (15:25)
[2022-07-01] MEDS ORDERED: VANCOMYCIN/WATER FOR INJ (PEG) 1,000 MG/200 ML BAG IVPB ONE (16:25)
[2022-07-01 17:20] LABS: IRON SERUM 62 ug/dL (50-175)
[2022-07-01 17:22] LABS: TOTAL IRON BINDING CAPACITY 132 ug/dL (250-450)
[2022-07-01] MEDS: SILVER SULFADIAZINE 1% TOP CREAM 50 GM JAR TP SCH (17:41)
[2022-07-01 20:37] LABS: BASO % 0.2 % (0-2.0); EOS % 0.1 % (0-4.5); LYMPH % 11.9 % (8-40); MCHC 33.4 g/dl (32.0-36.0); MEAN CELL VOLUME 86.9 fl (80-96); MEAN PLT VOLUME 10.6 fl (7.5-11.1); MONO % 3.3 % (3.8-10.2); NEUT % 84.5 % (42.8-82.8); PLATELET COUNT 60 10^3/uL (134-434); WHITE BLOOD COUNT 6.7 K/mm3 (4.0-10.0)
[2022-07-01 21:01] LABS: CALCIUM 7.1 mg/dL (8.5-10.1)
[2022-07-01 21:02] LABS: BLOOD UREA NITROGEN 24.3 mg/dL (7-18)
[2022-07-01 21:05] LABS: CREATININE 0.9 mg/dL (0.55-1.3)
[2022-07-01] MEDS ORDERED: ATORVASTATIN CA 20 MG TABLET (FP) GT SCH (22:00)
[2022-07-02] MEDS: MEROPENEM 1 GM in DEXTROSE 5%-WATER 100 ML IVPB SCH ×3 (01:08→17:28)
[2022-07-02] MEDS: NOREPINEPHRINE BITARTRATE 4,000 MCG in DEXTROSE 5%-WATER - 496 ML IV SCH (03:30)
[2022-07-02] MEDS: INSULIN SLIDING SCALE (NOVOLOG) 1 VIAL SQ SCH ×4 (04:06→21:41)
[2022-07-02] MEDS: DOCUSATE NA 100 MG/10 ML UNIT-DOSE CUPS PEG SCH (05:47)
[2022-07-02] MEDS: HEPARIN NA (PORCINE) 5,000 UNITS/ML 1ML VIAL SQ SCH ×3 (05:49→21:28)
[2022-07-02 06:42] LABS: ARTERIAL BLD GAS O2 SATURATION 99.4 % (95-98); ARTERIAL BLOOD GAS BASE EXCESS -1.5 mmol/L (-2-2); ARTERIAL BLOOD GAS PO2 191.1 mmHg (80-100); ARTERIAL BLOOD GAS pH 7.449 (7.350-7.450)
[2022-07-02 06:52] LABS: ALLENS TEST POSITIVE; VENT MODE A/C; VENT RATE 14
[2022-07-02] MEDS: LACTATED RINGERS SOLUTION 1,000 ML/1,000 ML INFUS.BAG IV SCH (06:53)
[2022-07-02 07:23] LABS: BASO % 0.2 % (0-2.0); EOS % 0.4 % (0-4.5); HEMATOCRIT 27.5 % (32.4-45.2); LYMPH % 17.3 % (8-40); MCH 28.4 pg (25.7-33.7); MCHC 32.8 g/dl (32.0-36.0); MEAN CELL VOLUME 86.8 fl (80-96); MEAN PLT VOLUME 10.1 fl (7.5-11.1); MONO % 4.9 % (3.8-10.2); NEUT % 77.2 % (42.8-82.8); PLATELET COUNT 43 10^3/uL (134-434); RBC 3.17 M/mm3 (3.60-5.2); RDW 15.5 % (11.6-15.6); WHITE BLOOD COUNT 4.2 K/mm3 (4.0-10.0)
[2022-07-02 07:42] LABS: MAGNESIUM 1.8 mg/dL (1.8-2.4)
[2022-07-02 07:45] LABS: CREATININE 0.6 mg/dL (0.55-1.3)
[2022-07-02 08:32] LABS: ALBUMIN 2.1 g/dl (3.4-5.0); BILIRUBIN,TOTAL 0.8 mg/dL (0.2-1); BLOOD UREA NITROGEN 16.3 mg/dL (7-18); CALCIUM 7.3 mg/dL (8.5-10.1); PHOSPHOROUS 4.5 mg/dL (2.5-4.9)
[2022-07-02] MEDS: PANTOPRAZOLE SODIUM 40 MG VIAL IVPUSH SCH (10:06)
[2022-07-02] MEDS: levETIRAcetam 500 MG/5 ML ORAL SOLUTION (UNIT-DOSE CUPS) GT SCH ×2 (10:06→21:28)
[2022-07-02] MEDS: AMINO ACIDS/PROTEIN HYDROLYS 30 ML LIQUID.PKT PO SCH (10:07)
[2022-07-02] MEDS: SILVER SULFADIAZINE 1% TOP CREAM 50 GM JAR TP SCH (10:08)
[2022-07-02] MEDS: KCL 10 MEQ IVPB 10 MEQ/100 ML INFUS.BAG IVPB SCH ×2 (17:25→18:24)
[2022-07-03] MEDS: MEROPENEM 1 GM in DEXTROSE 5%-WATER 100 ML IVPB SCH ×3 (01:02→18:02)
[2022-07-03] MEDS: INSULIN SLIDING SCALE (NOVOLOG) 1 VIAL SQ SCH ×4 (04:22→22:54)
[2022-07-03] MEDS: HEPARIN NA (PORCINE) 5,000 UNITS/ML 1ML VIAL SQ SCH ×2 (06:09→13:10)
[2022-07-03] MEDS: LACTATED RINGERS SOLUTION 1,000 ML/1,000 ML INFUS.BAG IV SCH (06:26)
[2022-07-03 07:52] LABS: BASO % 0.4 % (0-2.0); EOS % 0.8 % (0-4.5); HEMOGLOBIN 9.3 GM/dL (10.7-15.3); LYMPH % 16.5 % (8-40); MCH 28.8 pg (25.7-33.7); MCHC 33.3 g/dl (32.0-36.0); MEAN CELL VOLUME 86.6 fl (80-96); MEAN PLT VOLUME 10.6 fl (7.5-11.1); MONO % 6.1 % (3.8-10.2); NEUT % 76.2 % (42.8-82.8); PLATELET COUNT 50 10^3/uL (134-434); RBC 3.23 M/mm3 (3.60-5.2); RDW 15.6 % (11.6-15.6)
[2022-07-03] MEDS: AMINO ACIDS/PROTEIN HYDROLYS 30 ML LIQUID.PKT PO SCH (08:00)
[2022-07-03 08:13] LABS: CALCIUM 7.4 mg/dL (8.5-10.1)
[2022-07-03 08:14] LABS: ALBUMIN 1.9 g/dl (3.4-5.0); BLOOD UREA NITROGEN 14.6 mg/dL (7-18); MAGNESIUM 1.9 mg/dL (1.8-2.4)
[2022-07-03 08:17] LABS: CREATININE 0.4 mg/dL (0.55-1.3); PHOSPHOROUS 2.6 mg/dL (2.5-4.9)
[2022-07-03 08:18] LABS: BILIRUBIN,TOTAL 0.6 mg/dL (0.2-1); TOT PROT 4.8 g/dl (6.4-8.2)
[2022-07-03] MEDS: levETIRAcetam 500 MG/5 ML ORAL SOLUTION (UNIT-DOSE CUPS) GT SCH ×2 (10:02→22:43)
[2022-07-03] MEDS: PANTOPRAZOLE SODIUM 40 MG VIAL IVPUSH SCH (10:02)
[2022-07-03] MEDS: SILVER SULFADIAZINE 1% TOP CREAM 50 GM JAR TP SCH (13:11)
[2022-07-03] MEDS: METOPROLOL TARTRATE 25 MG TABLET (FP) GT SCH (18:02)
[2022-07-03] MEDS: ARTIFICIAL TEARS (POLYVINYL ALCOHOL) OPTH DROPS OU SCH (23:13)
[2022-07-04] MEDS: MEROPENEM 1 GM in DEXTROSE 5%-WATER 100 ML IVPB SCH ×3 (01:35→19:06)
[2022-07-04] MEDS: INSULIN SLIDING SCALE (NOVOLOG) 1 VIAL SQ SCH ×4 (04:24→21:18)
[2022-07-04] MEDS: ARTIFICIAL TEARS (POLYVINYL ALCOHOL) OPTH DROPS OU SCH ×3 (05:41→21:18)
[2022-07-04 05:56] LABS: ARTERIAL BLD GAS O2 SATURATION 99.5 % (95-98); ARTERIAL BLOOD GAS BASE EXCESS 0.4 mmol/L (-2-2); ARTERIAL BLOOD GAS PO2 210.8 mmHg (80-100); ARTERIAL BLOOD GAS pH 7.474 (7.350-7.450)
[2022-07-04 05:57] LABS: ALLENS TEST POSITIVE
[2022-07-04 05:58] LABS: VENT MODE A/C; VENT RATE 14
[2022-07-04 07:22] LABS: HEMATOCRIT 26.9 % (32.4-45.2); HEMOGLOBIN 8.9 GM/dL (10.7-15.3); MCH 28.8 pg (25.7-33.7); MCHC 33.1 g/dl (32.0-36.0); MEAN CELL VOLUME 87.1 fl (80-96); PLATELET COUNT 53 10^3/uL (134-434); RBC 3.08 M/mm3 (3.60-5.2); RDW 15.1 % (11.6-15.6)
[2022-07-04 07:31] LABS: BLOOD UREA NITROGEN 12.2 mg/dL (7-18); MAGNESIUM 2.1 mg/dL (1.8-2.4)
[2022-07-04 07:33] LABS: WHITE BLOOD COUNT 1.5 K/mm3 (4.0-10.0)
[2022-07-04 07:34] LABS: CREATININE 0.4 mg/dL (0.55-1.3); PHOSPHOROUS 2.2 mg/dL (2.5-4.9)
[2022-07-04 07:36] LABS: BILIRUBIN,TOTAL 0.4 mg/dL (0.2-1)
[2022-07-04 09:05] LABS: ANISOCYTOSIS 1+; MACROCYTOSIS 0; TEAR DROP CELLS 1+
[2022-07-04 09:06] LABS: PLATELET ESTIMATE DECREASED
[2022-07-04] MEDS: AMINO ACIDS/PROTEIN HYDROLYS 30 ML LIQUID.PKT PO SCH (09:30)
[2022-07-04] MEDS: ENOXAPARIN NA (PORCINE) 40 MG/0.4 ML DISP.SYRIN SQ SCH (09:30)
[2022-07-04] MEDS: METOPROLOL TARTRATE 25 MG TABLET (FP) GT SCH ×2 (09:30→18:55)
[2022-07-04] MEDS: PANTOPRAZOLE SODIUM 40 MG VIAL IVPUSH SCH (09:32)
[2022-07-04] MEDS: levETIRAcetam 500 MG/5 ML ORAL SOLUTION (UNIT-DOSE CUPS) GT SCH ×2 (09:32→21:18)
[2022-07-04] MEDS: LACTATED RINGERS SOLUTION 1,000 ML/1,000 ML INFUS.BAG IV SCH ×2 (09:33→17:01)
[2022-07-04] MEDS: PANTOPRAZOLE SOD 40 MG SUSPENSION PACKET PO SCH (11:10)
[2022-07-04] MEDS: SILVER SULFADIAZINE 1% TOP CREAM 50 GM JAR TP SCH (11:37)
[2022-07-05] MEDS: MEROPENEM 1 GM in DEXTROSE 5%-WATER 100 ML IVPB SCH ×3 (01:03→17:14)
[2022-07-05] MEDS: INSULIN SLIDING SCALE (NOVOLOG) 1 VIAL SQ SCH ×4 (04:42→21:46)
[2022-07-05] MEDS: ARTIFICIAL TEARS (POLYVINYL ALCOHOL) OPTH DROPS OU SCH ×3 (06:17→21:20)
[2022-07-05 07:12] LABS: ARTERIAL BLD GAS O2 SATURATION 99.4 % (95-98); ARTERIAL BLOOD GAS BASE EXCESS 5.6 mmol/L (-2-2); ARTERIAL BLOOD GAS pH 7.484 (7.350-7.450)
[2022-07-05 07:13] LABS: ALLENS TEST POSITIVE; VENT MODE A/C; VENT RATE 14
[2022-07-05 07:45] LABS: BASO % 0.5 % (0-2.0); EOS % 1.7 % (0-4.5); HEMATOCRIT 29.7 % (32.4-45.2); HEMOGLOBIN 9.7 GM/dL (10.7-15.3); LYMPH % 19.9 % (8-40); MCH 28.6 pg (25.7-33.7); MCHC 32.6 g/dl (32.0-36.0); MEAN CELL VOLUME 87.9 fl (80-96); MEAN PLT VOLUME 11.9 fl (7.5-11.1); MONO % 11.1 % (3.8-10.2); NEUT % 66.8 % (42.8-82.8); PLATELET COUNT 74 10^3/uL (134-434); RBC 3.38 M/mm3 (3.60-5.2); RDW 15.2 % (11.6-15.6); WHITE BLOOD COUNT 2.3 K/mm3 (4.0-10.0)
[2022-07-05 08:06] LABS: ALBUMIN 2.2 g/dl (3.4-5.0); BLOOD UREA NITROGEN 10.5 mg/dL (7-18); CALCIUM 7.9 mg/dL (8.5-10.1); MAGNESIUM 2.4 mg/dL (1.8-2.4)
[2022-07-05 08:09] LABS: CREATININE 0.3 mg/dL (0.55-1.3)
[2022-07-05 08:10] LABS: PHOSPHOROUS 2.4 mg/dL (2.5-4.9)
[2022-07-05 08:11] LABS: BILIRUBIN,TOTAL 0.3 mg/dL (0.2-1); TOT PROT 5.4 g/dl (6.4-8.2)
[2022-07-05] MEDS: AMINO ACIDS/PROTEIN HYDROLYS 30 ML LIQUID.PKT PO SCH (10:06)
[2022-07-05] MEDS: levETIRAcetam 500 MG/5 ML ORAL SOLUTION (UNIT-DOSE CUPS) GT SCH ×2 (10:07→21:20)
[2022-07-05] MEDS: METOPROLOL TARTRATE 25 MG TABLET (FP) GT SCH ×2 (10:07→17:14)
[2022-07-05] MEDS: PANTOPRAZOLE SOD 40 MG SUSPENSION PACKET PO SCH (10:07)
[2022-07-05] MEDS: ENOXAPARIN NA (PORCINE) 40 MG/0.4 ML DISP.SYRIN SQ SCH (10:07)
[2022-07-05] MEDS: LACTATED RINGERS SOLUTION 1,000 ML/1,000 ML INFUS.BAG IV SCH (10:08)
[2022-07-05] MEDS: SILVER SULFADIAZINE 1% TOP CREAM 50 GM JAR TP SCH (11:51)
[2022-07-06] MEDS: MEROPENEM 1 GM in DEXTROSE 5%-WATER 100 ML IVPB SCH ×3 (02:58→17:46)
[2022-07-06] MEDS: INSULIN SLIDING SCALE (NOVOLOG) 1 VIAL SQ SCH ×4 (04:09→22:07)
[2022-07-06] MEDS: ARTIFICIAL TEARS (POLYVINYL ALCOHOL) OPTH DROPS OU SCH ×3 (05:27→22:08)
[2022-07-06 06:12] LABS: ARTERIAL BLD GAS O2 SATURATION 99.4 % (95-98); ARTERIAL BLOOD GAS BASE EXCESS 5.4 mmol/L (-2-2); ARTERIAL BLOOD GAS PO2 199.6 mmHg (80-100); ARTERIAL BLOOD GAS pH 7.442 (7.350-7.450)
[2022-07-06 06:13] LABS: ALLENS TEST POSITIVE
[2022-07-06 06:14] LABS: VENT MODE A/C; VENT RATE 14
[2022-07-06 08:33] LABS: CALCIUM 7.9 mg/dL (8.5-10.1)
[2022-07-06 08:34] LABS: ALBUMIN 2.2 g/dl (3.4-5.0); BLOOD UREA NITROGEN 10.2 mg/dL (7-18); MAGNESIUM 2.4 mg/dL (1.8-2.4)
[2022-07-06 08:37] LABS: CREATININE 0.3 mg/dL (0.55-1.3); PHOSPHOROUS 2.4 mg/dL (2.5-4.9)
[2022-07-06 08:38] LABS: BILIRUBIN,TOTAL 0.2 mg/dL (0.2-1); TOT PROT 5.6 g/dl (6.4-8.2)
[2022-07-06] MEDS: METOPROLOL TARTRATE 25 MG TABLET (FP) GT SCH ×2 (08:50→16:09)
[2022-07-06] MEDS: AMINO ACIDS/PROTEIN HYDROLYS 30 ML LIQUID.PKT PO SCH (08:50)
[2022-07-06] MEDS: LACTATED RINGERS SOLUTION 1,000 ML/1,000 ML INFUS.BAG IV SCH (08:50)
[2022-07-06] MEDS ORDERED: PANTOPRAZOLE SOD 40 MG SUSPENSION PACKET PO SCH (10:00)
[2022-07-06] MEDS: levETIRAcetam 500 MG/5 ML ORAL SOLUTION (UNIT-DOSE CUPS) GT SCH ×2 (10:54→21:59)
[2022-07-06] MEDS: FAMOTIDINE 40 MG/5 ML ORAL SUSPENSION GT SCH ×2 (10:54→22:08)
[2022-07-06] MEDS: SILVER SULFADIAZINE 1% TOP CREAM 50 GM JAR TP SCH (10:55)
[2022-07-06] MEDS: ENOXAPARIN NA (PORCINE) 40 MG/0.4 ML DISP.SYRIN SQ SCH (14:26)
[2022-07-06 15:29] VITALS: BMI 32.1
[2022-07-06 15:49] LABS: BASO % 0.3 % (0-2.0); EOS % 1.8 % (0-4.5); HEMOGLOBIN 8.9 GM/dL (10.7-15.3); MCH 28.8 pg (25.7-33.7); MCHC 32.9 g/dl (32.0-36.0); MEAN CELL VOLUME 87.5 fl (80-96); MEAN PLT VOLUME 9.8 fl (7.5-11.1); MONO % 17.2 % (3.8-10.2); NEUT % 53.7 % (42.8-82.8); PLATELET COUNT 87 10^3/uL (134-434); RBC 3.08 M/mm3 (3.60-5.2); WHITE BLOOD COUNT 2.2 K/mm3 (4.0-10.0)
[2022-07-06] MEDS: NAPH,MB-DB/K PH,MBDB POWDER PACKET PO SCH ×2 (16:09→21:59)
[2022-07-07] MEDS ORDERED: TRIMETHOBENZAMIDE HCL 200MG/2ML INJ IM ONE (00:44)
[2022-07-07] MEDS: MEROPENEM 1 GM in DEXTROSE 5%-WATER 100 ML IVPB SCH ×3 (02:51→17:10)
[2022-07-07 03:04] LABS: BASO % 0.4 % (0-2.0); EOS % 0.3 % (0-4.5); HEMATOCRIT 25.9 % (32.4-45.2); HEMOGLOBIN 8.7 GM/dL (10.7-15.3); LYMPH % 11.7 % (8-40); MCH 29.2 pg (25.7-33.7); MCHC 33.8 g/dl (32.0-36.0); MEAN CELL VOLUME 86.5 fl (80-96); MONO % 15.4 % (3.8-10.2); NEUT % 72.2 % (42.8-82.8); PLATELET COUNT 99 10^3/uL (134-434); RBC 2.99 M/mm3 (3.60-5.2); WHITE BLOOD COUNT 3.2 K/mm3 (4.0-10.0)
[2022-07-07 03:42] LABS: CALCIUM 7.9 mg/dL (8.5-10.1)
[2022-07-07 03:43] LABS: ALBUMIN 2.2 g/dl (3.4-5.0); BLOOD UREA NITROGEN 11.7 mg/dL (7-18)
[2022-07-07 03:45] LABS: CREATININE 0.4 mg/dL (0.55-1.3); PHOSPHOROUS 2.2 mg/dL (2.5-4.9)
[2022-07-07 03:47] LABS: BILIRUBIN,TOTAL 0.5 mg/dL (0.2-1); TOT PROT 5.2 g/dl (6.4-8.2)
[2022-07-07] MEDS: INSULIN SLIDING SCALE (NOVOLOG) 1 VIAL SQ SCH ×4 (03:57→22:11)
[2022-07-07] MEDS: KCL 10 MEQ IVPB 10 MEQ/100 ML INFUS.BAG IVPB SCH ×2 (05:47→09:18)
[2022-07-07] MEDS: ARTIFICIAL TEARS (POLYVINYL ALCOHOL) OPTH DROPS OU SCH ×3 (06:52→22:08)
[2022-07-07] MEDS: METOPROLOL TARTRATE 25 MG TABLET (FP) GT SCH ×2 (09:17→17:10)
[2022-07-07] MEDS: AMINO ACIDS/PROTEIN HYDROLYS 30 ML LIQUID.PKT PO SCH (09:17)
[2022-07-07] MEDS: LACTATED RINGERS SOLUTION 1,000 ML/1,000 ML INFUS.BAG IV SCH (09:18)
[2022-07-07] MEDS ORDERED: KCL 10 MEQ IVPB 10 MEQ/100 ML INFUS.BAG IVPB SCH (10:45)
[2022-07-07] MEDS: NAPH,MB-DB/K PH,MBDB POWDER PACKET PO SCH ×2 (11:28→13:36)
[2022-07-07] MEDS: levETIRAcetam 500 MG/5 ML ORAL SOLUTION (UNIT-DOSE CUPS) GT SCH ×2 (11:28→22:07)
[2022-07-07] MEDS: FAMOTIDINE 40 MG/5 ML ORAL SUSPENSION GT SCH ×2 (11:29→22:08)
[2022-07-07] MEDS: SILVER SULFADIAZINE 1% TOP CREAM 50 GM JAR TP SCH (11:31)
[2022-07-07 12:06] LABS: BASO % 0.3 % (0-2.0); EOS % 0.7 % (0-4.5); HEMATOCRIT 27.9 % (32.4-45.2); HEMOGLOBIN 9.2 GM/dL (10.7-15.3); LYMPH % 21.9 % (8-40); MCH 28.9 pg (25.7-33.7); MCHC 32.9 g/dl (32.0-36.0); MEAN CELL VOLUME 87.9 fl (80-96); MEAN PLT VOLUME 9.1 fl (7.5-11.1); MONO % 17.9 % (3.8-10.2); NEUT % 59.2 % (42.8-82.8); PLATELET COUNT 109 10^3/uL (134-434); RBC 3.18 M/mm3 (3.60-5.2); WHITE BLOOD COUNT 2.9 K/mm3 (4.0-10.0)
[2022-07-07 12:30] LABS: ALBUMIN 2.3 g/dl (3.4-5.0); BLOOD UREA NITROGEN 9.7 mg/dL (7-18); CALCIUM 8.3 mg/dL (8.5-10.1); MAGNESIUM 2.2 mg/dL (1.8-2.4)
[2022-07-07 12:33] LABS: CREATININE 0.4 mg/dL (0.55-1.3); PHOSPHOROUS 2.3 mg/dL (2.5-4.9)
[2022-07-07 12:34] LABS: BILIRUBIN,TOTAL 0.4 mg/dL (0.2-1); TOT PROT 5.5 g/dl (6.4-8.2)
[2022-07-07] MEDS: ENOXAPARIN NA (PORCINE) 40 MG/0.4 ML DISP.SYRIN SQ SCH (17:05)
[2022-07-07] MEDS: POLYETHYLENE GLYCOL (HEALTHYLAX) 3350 17 GM PACKET GT SCH (22:07)
[2022-07-08] MEDS: MEROPENEM 1 GM in DEXTROSE 5%-WATER 100 ML IVPB SCH ×3 (01:28→18:48)
[2022-07-08] MEDS ORDERED: LORazepam 2 MG/ML SDV VIAL IVPUSH ONE (04:52)
[2022-07-08] MEDS: INSULIN SLIDING SCALE (NOVOLOG) 1 VIAL SQ SCH ×4 (06:14→22:00)
[2022-07-08] MEDS: ARTIFICIAL TEARS (POLYVINYL ALCOHOL) OPTH DROPS OU SCH ×3 (06:15→22:55)
[2022-07-08 07:27] LABS: ARTERIAL BLD GAS O2 SATURATION 99.4 % (95-98); ARTERIAL BLOOD GAS BASE EXCESS 0 mmol/L (-2-2); ARTERIAL BLOOD GAS pH 7.513 (7.350-7.450)
[2022-07-08 07:38] LABS: VENT MODE A/C; VENT RATE 14
[2022-07-08] MEDS: LACTATED RINGERS SOLUTION 1,000 ML/1,000 ML INFUS.BAG IV SCH (08:56)
[2022-07-08] MEDS: AMINO ACIDS/PROTEIN HYDROLYS 30 ML LIQUID.PKT PO SCH (09:02)
[2022-07-08] MEDS: METOPROLOL TARTRATE 25 MG TABLET (FP) GT SCH ×3 (09:02→21:55)
[2022-07-08] MEDS: ENOXAPARIN NA (PORCINE) 40 MG/0.4 ML DISP.SYRIN SQ SCH (09:23)
[2022-07-08] MEDS: levETIRAcetam 500 MG/5 ML ORAL SOLUTION (UNIT-DOSE CUPS) GT SCH ×2 (09:23→21:56)
[2022-07-08] MEDS: NAPH,MB-DB/K PH,MBDB POWDER PACKET PO SCH (09:23)
[2022-07-08] MEDS: POLYETHYLENE GLYCOL (HEALTHYLAX) 3350 17 GM PACKET GT SCH ×2 (09:23→21:55)
[2022-07-08] MEDS: SILVER SULFADIAZINE 1% TOP CREAM 50 GM JAR TP SCH (09:24)
[2022-07-08] MEDS: FAMOTIDINE 40 MG/5 ML ORAL SUSPENSION GT SCH ×2 (09:33→21:56)
[2022-07-08 11:15] LABS: ALBUMIN 2.5 g/dl (3.4-5.0); BLOOD UREA NITROGEN 6.4 mg/dL (7-18); CALCIUM 8.6 mg/dL (8.5-10.1)
[2022-07-08 11:17] LABS: CREATININE 0.5 mg/dL (0.55-1.3); PHOSPHOROUS 2.7 mg/dL (2.5-4.9)
[2022-07-08 11:19] LABS: BILIRUBIN,TOTAL 0.4 mg/dL (0.2-1)
[2022-07-08] MEDS ORDERED: LORazepam 0.5 MG TABLET GT PRN (12:02)
[2022-07-08] MEDS ORDERED: SODIUM CHLORIDE 250 ML IV STA (12:02)
[2022-07-08] MEDS ORDERED: METOPROLOL TARTRATE 5 MG/5 ML VIAL IVPUSH PRN (12:05)
[2022-07-08] MEDS ORDERED: SODIUM CHLORIDE 1,000 ML IV SCH (12:15)
[2022-07-08] MEDS: POTASSIUM CHLORIDE 10 MEQ in SODIUM CHLORIDE 0.45% 1,000 ML IVPB SCH (17:59)
[2022-07-09] MEDS: MEROPENEM 1 GM in DEXTROSE 5%-WATER 100 ML IVPB SCH ×3 (02:59→17:00)
[2022-07-09] MEDS: INSULIN SLIDING SCALE (NOVOLOG) 1 VIAL SQ SCH ×4 (04:22→22:01)
[2022-07-09] MEDS: METOPROLOL TARTRATE 25 MG TABLET (FP) GT SCH ×3 (05:05→21:45)
[2022-07-09] MEDS: ARTIFICIAL TEARS (POLYVINYL ALCOHOL) OPTH DROPS OU SCH ×3 (05:35→21:45)
[2022-07-09] MEDS: AMINO ACIDS/PROTEIN HYDROLYS 30 ML LIQUID.PKT PO SCH (08:53)
[2022-07-09 08:54] LABS: BASO % 0.3 % (0-2.0); EOS % 0.5 % (0-4.5); HEMATOCRIT 26.1 % (32.4-45.2); HEMOGLOBIN 8.4 GM/dL (10.7-15.3); MCH 28.4 pg (25.7-33.7); MCHC 32.2 g/dl (32.0-36.0); MEAN CELL VOLUME 88.4 fl (80-96); MONO % 11.4 % (3.8-10.2); NEUT % 63.8 % (42.8-82.8); PLATELET COUNT 147 10^3/uL (134-434); RBC 2.96 M/mm3 (3.60-5.2); RDW 15.3 % (11.6-15.6); WHITE BLOOD COUNT 3.3 K/mm3 (4.0-10.0)
[2022-07-09] MEDS: POLYETHYLENE GLYCOL (HEALTHYLAX) 3350 17 GM PACKET GT SCH ×2 (09:58→21:45)
[2022-07-09] MEDS: NAPH,MB-DB/K PH,MBDB POWDER PACKET PO SCH (09:58)
[2022-07-09] MEDS: ENOXAPARIN NA (PORCINE) 40 MG/0.4 ML DISP.SYRIN SQ SCH (09:59)
[2022-07-09] MEDS: levETIRAcetam 500 MG/5 ML ORAL SOLUTION (UNIT-DOSE CUPS) GT SCH ×2 (09:59→21:45)
[2022-07-09] MEDS: FAMOTIDINE 40 MG/5 ML ORAL SUSPENSION GT SCH ×2 (09:59→21:45)
[2022-07-09] MEDS: SILVER SULFADIAZINE 1% TOP CREAM 50 GM JAR TP SCH (10:01)
[2022-07-09] MEDS: POTASSIUM CHLORIDE 10 MEQ in SODIUM CHLORIDE 0.45% 1,000 ML IVPB SCH (16:56)
[2022-07-10] MEDS: MEROPENEM 1 GM in DEXTROSE 5%-WATER 100 ML IVPB SCH ×3 (01:21→17:11)
[2022-07-10] MEDS: INSULIN SLIDING SCALE (NOVOLOG) 1 VIAL SQ SCH ×4 (04:02→22:25)
[2022-07-10] MEDS: ARTIFICIAL TEARS (POLYVINYL ALCOHOL) OPTH DROPS OU SCH ×3 (05:26→22:24)
[2022-07-10] MEDS: METOPROLOL TARTRATE 25 MG TABLET (FP) GT SCH ×3 (05:26→22:24)
[2022-07-10] MEDS: levETIRAcetam 500 MG/5 ML ORAL SOLUTION (UNIT-DOSE CUPS) GT SCH ×2 (11:25→22:25)
[2022-07-10] MEDS: AMINO ACIDS/PROTEIN HYDROLYS 30 ML LIQUID.PKT PO SCH (11:26)
[2022-07-10] MEDS: POLYETHYLENE GLYCOL (HEALTHYLAX) 3350 17 GM PACKET GT SCH ×2 (11:26→22:24)
[2022-07-10] MEDS: NAPH,MB-DB/K PH,MBDB POWDER PACKET PO SCH (11:26)
[2022-07-10] MEDS: ENOXAPARIN NA (PORCINE) 40 MG/0.4 ML DISP.SYRIN SQ SCH (11:26)
[2022-07-10] MEDS: FAMOTIDINE 40 MG/5 ML ORAL SUSPENSION GT SCH ×2 (11:27→22:45)
[2022-07-10] MEDS: SILVER SULFADIAZINE 1% TOP CREAM 50 GM JAR TP SCH (11:28)
[2022-07-10] MEDS: POTASSIUM CHLORIDE 10 MEQ in SODIUM CHLORIDE 0.45% 1,000 ML IVPB SCH (15:04)
[2022-07-11] MEDS: MEROPENEM 1 GM in DEXTROSE 5%-WATER 100 ML IVPB SCH ×3 (01:35→17:07)
[2022-07-11] MEDS: INSULIN SLIDING SCALE (NOVOLOG) 1 VIAL SQ SCH ×4 (04:34→22:01)
[2022-07-11] MEDS: METOPROLOL TARTRATE 25 MG TABLET (FP) GT SCH ×3 (06:32→21:42)
[2022-07-11] MEDS: ARTIFICIAL TEARS (POLYVINYL ALCOHOL) OPTH DROPS OU SCH ×3 (06:32→21:45)
[2022-07-11] MEDS: ENOXAPARIN NA (PORCINE) 40 MG/0.4 ML DISP.SYRIN SQ SCH (11:51)
[2022-07-11] MEDS: AMINO ACIDS/PROTEIN HYDROLYS 30 ML LIQUID.PKT PO SCH (11:51)
[2022-07-11] MEDS: levETIRAcetam 500 MG/5 ML ORAL SOLUTION (UNIT-DOSE CUPS) GT SCH ×2 (11:51→21:43)
[2022-07-11] MEDS: POLYETHYLENE GLYCOL (HEALTHYLAX) 3350 17 GM PACKET GT SCH ×2 (11:51→21:43)
[2022-07-11] MEDS: NAPH,MB-DB/K PH,MBDB POWDER PACKET PO SCH (11:53)
[2022-07-11] MEDS: FAMOTIDINE 40 MG/5 ML ORAL SUSPENSION GT SCH ×2 (11:55→21:43)
[2022-07-11] MEDS: SILVER SULFADIAZINE 1% TOP CREAM 50 GM JAR TP SCH (12:01)
[2022-07-12] MEDS: MEROPENEM 1 GM in DEXTROSE 5%-WATER 100 ML IVPB SCH ×2 (01:54→10:50)
[2022-07-12] MEDS: INSULIN SLIDING SCALE (NOVOLOG) 1 VIAL SQ SCH ×4 (04:31→23:36)
[2022-07-12] MEDS: METOPROLOL TARTRATE 25 MG TABLET (FP) GT SCH ×3 (05:27→23:32)
[2022-07-12] MEDS: ARTIFICIAL TEARS (POLYVINYL ALCOHOL) OPTH DROPS OU SCH ×3 (05:27→23:34)
[2022-07-12] MEDS: AMINO ACIDS/PROTEIN HYDROLYS 30 ML LIQUID.PKT PO SCH (08:58)
[2022-07-12] MEDS: levETIRAcetam 500 MG/5 ML ORAL SOLUTION (UNIT-DOSE CUPS) GT SCH ×2 (10:50→23:32)
[2022-07-12] MEDS: FAMOTIDINE 40 MG/5 ML ORAL SUSPENSION GT SCH ×2 (10:50→23:33)
[2022-07-12] MEDS: ENOXAPARIN NA (PORCINE) 40 MG/0.4 ML DISP.SYRIN SQ SCH (10:50)
[2022-07-12] MEDS: POLYETHYLENE GLYCOL (HEALTHYLAX) 3350 17 GM PACKET GT SCH ×2 (10:50→23:33)
[2022-07-12] MEDS: SILVER SULFADIAZINE 1% TOP CREAM 50 GM JAR TP SCH (10:51)
[2022-07-12] MEDS: NAPH,MB-DB/K PH,MBDB POWDER PACKET PO SCH (10:51)
[2022-07-12 10:59] LABS: CALCIUM 8.5 mg/dL (8.5-10.1)
[2022-07-12 11:00] LABS: ALBUMIN 2.4 g/dl (3.4-5.0); MAGNESIUM 2.2 mg/dL (1.8-2.4)
[2022-07-12 11:03] LABS: CREATININE 0.3 mg/dL (0.55-1.3); PHOSPHOROUS 2.5 mg/dL (2.5-4.9)
[2022-07-12 11:04] LABS: BILIRUBIN,TOTAL 0.2 mg/dL (0.2-1); TOT PROT 5.9 g/dl (6.4-8.2)
[2022-07-12 12:13] LABS: BASO % 0.3 % (0-2.0); EOS % 0.5 % (0-4.5); HEMATOCRIT 30.5 % (32.4-45.2); HEMOGLOBIN 10.2 GM/dL (10.7-15.3); LYMPH % 25.4 % (8-40); MCH 29.5 pg (25.7-33.7); MCHC 33.3 g/dl (32.0-36.0); MEAN CELL VOLUME 88.5 fl (80-96); MEAN PLT VOLUME 8.3 fl (7.5-11.1); MONO % 10.9 % (3.8-10.2); NEUT % 62.9 % (42.8-82.8); PLATELET COUNT 195 10^3/uL (134-434); RBC 3.45 M/mm3 (3.60-5.2); RDW 15.6 % (11.6-15.6); WHITE BLOOD COUNT 3.7 K/mm3 (4.0-10.0)
[2022-07-12] MEDS ORDERED: POTASSIUM CHLORIDE ORAL LIQUID 20 MEQ/15 ML PEG ONE (12:30)
[2022-07-13] MEDS: INSULIN SLIDING SCALE (NOVOLOG) 1 VIAL SQ SCH ×3 (05:26→17:15)
[2022-07-13] MEDS: ARTIFICIAL TEARS (POLYVINYL ALCOHOL) OPTH DROPS OU SCH ×2 (05:47→14:10)
[2022-07-13] MEDS: METOPROLOL TARTRATE 25 MG TABLET (FP) GT SCH ×2 (05:47→14:09)
[2022-07-13] MEDS: AMINO ACIDS/PROTEIN HYDROLYS 30 ML LIQUID.PKT PO SCH (08:48)
[2022-07-13] MEDS: FAMOTIDINE 40 MG/5 ML ORAL SUSPENSION GT SCH (09:32)
[2022-07-13] MEDS: levETIRAcetam 500 MG/5 ML ORAL SOLUTION (UNIT-DOSE CUPS) GT SCH (09:32)
[2022-07-13] MEDS: POLYETHYLENE GLYCOL (HEALTHYLAX) 3350 17 GM PACKET GT SCH (09:32)
[2022-07-13] MEDS: ENOXAPARIN NA (PORCINE) 40 MG/0.4 ML DISP.SYRIN SQ SCH (09:32)
[2022-07-13] MEDS: NAPH,MB-DB/K PH,MBDB POWDER PACKET PO SCH (09:32)
[2022-07-13] MEDS: SILVER SULFADIAZINE 1% TOP CREAM 50 GM JAR TP SCH (09:33)
[2022-07-13 12:07] LABS: CALCIUM 8.4 mg/dL (8.5-10.1)
[2022-07-13 12:08] LABS: ALBUMIN 2.4 g/dl (3.4-5.0); BLOOD UREA NITROGEN 9.8 mg/dL (7-18)
[2022-07-13 12:11] LABS: CREATININE 0.4 mg/dL (0.55-1.3)
[2022-07-13 12:12] LABS: BILIRUBIN,TOTAL 0.2 mg/dL (0.2-1); TOT PROT 5.9 g/dl (6.4-8.2)
[2022-07-13 18:46] VITALS: BP 174/84; PULSE 84; RESP 20; TEMP 99.7
== END 2022-07-13 18:26 | DRG 720 ==
LOC: JER 20:36 → JERBED 23:33 → JICU 07-01 03:19 → J5S 07-06 07:00
PROVIDERS: ADMIT Internal Medicine Pulmonary Disease; ATTEND Family Medicine
PROC: 5A1955Z Respiratory Ventilation, Greater than 96 Consecutive Hours (ICD-10-PCS; principal; 2022-06-30)
PROC: 02HV33Z Insertion of Infusion Device into Superior Vena Cava, Percutaneous Approach (ICD-10-PCS; 2022-07-01)
DX: A41.9 Sepsis, unspecified organism (principal); R53.2 Functional quadriplegia; J96.11 Chronic respiratory failure with hypoxia; Z93.0 Tracheostomy status; Z99.11 Dependence on respirator [ventilator] status; G40.909 Epilepsy, unspecified, not intractable, without status epilepticus; I24.8 Other forms of acute ischemic heart disease; R65.21 Severe sepsis with septic shock; E78.5 Hyperlipidemia, unspecified; D64.9 Anemia, unspecified; L89.153 Pressure ulcer of sacral region, stage 3; E87.20 Acidosis, unspecified; D69.6 Thrombocytopenia, unspecified; R79.89 Other specified abnormal findings of blood chemistry; K72.00 Acute and subacute hepatic failure without coma; K59.00 Constipation, unspecified; L89.892 Pressure ulcer of other site, stage 2; K92.2 Gastrointestinal hemorrhage, unspecified; D61.818 Other pancytopenia; E83.39 Other disorders of phosphorus metabolism; K59.81 Ogilvie syndrome; E87.6 Hypokalemia; G81.90 Hemiplegia, unspecified affecting unspecified side; Z79.4 Long term (current) use of insulin; I69.391 Dysphagia following cerebral infarction; R13.10 Dysphagia, unspecified
CPT/HCPCS: 36415; 36430; 36600; 71045-TC-FY; 74018-TC-FY; 76705-TC; 80048; 80053; 80076; 81003; 82010; 82150; 82272; 82550; 82553; 82803; 82962; 83540; 83550; 83605; 83690; 83735; 84100; 84484; 85025; 85027; 85610; 85730; 86705; 86803; 86850; 86900; 86901; 86922; 87040; 87086; 87186; 87340; 87517; 93005; 93010; 93971-TC; 94002; 99285-25; C9803-CS; J1644; P9058; U0003; U0005

== ENCOUNTER 2022-08-04 08:14 | Inpatient (IN) | payer OTHER ==
[2022-08-04] MEDS ORDERED: SODIUM CHLORIDE 0.9% 500 ML INFUS.BAG IV ONE (08:40)
[2022-08-04] MEDS ORDERED: ACETAMINOPHEN 1000 MG/100 ML BAG IVPB ONE (08:40)
[2022-08-04] MEDS ORDERED: ACETAMINOPHEN INJECTION 100 ML IVPB ONE (09:15)
[2022-08-04 10:18] LABS: VENOUS BASE EXCESS 11.4 mmol/L (-2-2); VENOUS O2 SATURATION 54.4 % (70-80); VENOUS PCO2 34.9 mmHg (38-52); VENOUS PH 7.599 (7.310-7.410)
[2022-08-04 10:22] LABS: INR 1.31 (0.83-1.09); PROTHROMBIN TIME (PATIENT) 15.1 SEC (9.7-13.0)
[2022-08-04 10:24] LABS: ACTIVATED PTT 35.6 SECONDS (25.2-36.5)
[2022-08-04 10:31] LABS: CHLORIDE 113 mmol/L (98-107); SODIUM 149 mmol/L (136-145)
[2022-08-04 10:34] LABS: CALCIUM 8.8 mg/dL (8.5-10.1)
[2022-08-04 10:35] LABS: ALBUMIN 2.4 g/dl (3.4-5.0); BLOOD UREA NITROGEN 13.9 mg/dL (7-18); CO2 27 mmol/L (21-32); GLUCOSE,RANDOM 308 mg/dL (74-106)
[2022-08-04 10:38] LABS: CREATININE 0.6 mg/dL (0.55-1.3); SGOT/AST 41 U/L (15-37)
[2022-08-04 10:39] LABS: BILIRUBIN,TOTAL 0.8 mg/dL (0.2-1); SGPT/ALT 72 U/L (13-61); TOT PROT 6.2 g/dl (6.4-8.2)
[2022-08-04 10:41] LABS: ALK PHOS 93 U/L (45-117)
[2022-08-04 10:45] LABS: ANION GAP 9 MMOL/L (8-16)
[2022-08-04 10:54] LABS: BASO % 0.1 % (0-2.0); EOS % 0.3 % (0-4.5); HEMATOCRIT 22.4 % (32.4-45.2); HEMOGLOBIN 7.5 GM/dL (10.7-15.3); LYMPH % 10.7 % (8-40); MCH 29.2 pg (25.7-33.7); MCHC 33.4 g/dl (32.0-36.0); MEAN CELL VOLUME 87.2 fl (80-96); MEAN PLT VOLUME 8.9 fl (7.5-11.1); MONO % 5.5 % (3.8-10.2); NEUT % 83.4 % (42.8-82.8); PLATELET COUNT 168 10^3/uL (134-434); RBC 2.56 M/mm3 (3.60-5.2); RDW 15.8 % (11.6-15.6)
[2022-08-04] MEDS ORDERED: KCL 10 MEQ IVPB 10 MEQ/100 ML INFUS.BAG IVPB ONE (10:59)
[2022-08-04] MEDS: KCL 10 MEQ IVPB 10 MEQ/100 ML INFUS.BAG IVPB SCH ×3 (11:07→13:18)
[2022-08-04 12:32] LABS: EPI CELLS 9 /uL (0-25.1); HYALINE CASTS 2 /uL (0-3.1); PH,URINE 5.5 (5.0-8.0); URINE APPEARANCE CLOUDY; URINE BACTERIA >9,000 /uL (0-1359); URINE BILIRUBIN NEGATIVE (NEGATIVE); URINE COLOR YELLOW; URINE GLUCOSE (UA) 3+ (NEGATIVE); URINE KETONE 1+ (NEGATIVE); URINE LEUK ESTERASE 2+ (NEGATIVE); URINE NITRITE NEGATIVE (NEGATIVE); URINE PROTEIN 1+ (NEGATIVE); URINE UROBILINOGEN 0.2 mg/dL (0.2-1.0); URINE WBC 1095 /uL (0-25.8)
[2022-08-04] MEDS ORDERED: PIPERACILLIN/TAZOB 4.5 GM 4.5 GM in DEXTROSE 5%-WATER 100 ML IVPB ONE (12:59)
[2022-08-04] MEDS ORDERED: PIPERACILLIN/TAZOB 4.5 GM 4.5 GM/100 ML BAG IVPB ONE (13:14)
[2022-08-04 14:51] LABS: URINE RBC 460.1 /uL (0-23.9); YEAST NONE SEEN (NEGATIVE)
[2022-08-04] MEDS ORDERED: D5-1/2NS+20 MEQ KCL - 20 MEQ/1,000 ML INFUS.BAG IV SCH (15:45)
[2022-08-04] MEDS: METOPROLOL TARTRATE 25 MG TABLET (FP) GT SCH (17:56)
[2022-08-04] MEDS ORDERED: levETIRAcetam 500 MG/5 ML ORAL SOLUTION (UNIT-DOSE CUPS) GT SCH (18:00)
[2022-08-04] MEDS ORDERED: METOPROLOL TARTRATE 5 MG/5 ML VIAL IVPUSH PRN (18:01)
[2022-08-04] MEDS ORDERED: FAMOTIDINE 40 MG/5 ML ORAL SUSPENSION GT SCH (22:00)
[2022-08-04] MEDS: POLYETHYLENE GLYCOL (HEALTHYLAX) 3350 17 GM PACKET GT SCH (22:40)
[2022-08-04] MEDS ORDERED: levETIRAcetam 500 MG/5 ML INJECTION VIAL IVPB ONE (22:42)
[2022-08-04] MEDS: levETIRAcetam 500 MG/5 ML INJECTION VIAL IVPB SCH (22:53)
[2022-08-04] MEDS: ATORVASTATIN CA 20 MG TABLET (FP) GT SCH (23:06)
[2022-08-04] MEDS: ARTIFICIAL TEARS (POLYVINYL ALCOHOL) OPTH DROPS OU SCH (23:28)
[2022-08-05] MEDS: FAMOTIDINE 20 MG/50 ML IVPB 20 MG/50 ML MG IVPB SCH ×3 (00:06→21:40)
[2022-08-05 04:23] VITALS: BMI 29.0
[2022-08-05] MEDS: ARTIFICIAL TEARS (POLYVINYL ALCOHOL) OPTH DROPS OU SCH ×3 (06:11→21:28)
[2022-08-05 07:44] LABS: BASO % 0.2 % (0-2.0); EOS % 1.6 % (0-4.5); HEMATOCRIT 21.5 % (32.4-45.2); LYMPH % 8.9 % (8-40); MCH 28.8 pg (25.7-33.7); MCHC 32.6 g/dl (32.0-36.0); MEAN CELL VOLUME 88.3 fl (80-96); MEAN PLT VOLUME 8.9 fl (7.5-11.1); MONO % 4.5 % (3.8-10.2); NEUT % 84.8 % (42.8-82.8); PLATELET COUNT 145 10^3/uL (134-434); RBC 2.44 M/mm3 (3.60-5.2); RDW 15.5 % (11.6-15.6); WHITE BLOOD COUNT 3.8 K/mm3 (4.0-10.0)
[2022-08-05 08:05] LABS: CHLORIDE 116 mmol/L (98-107); SODIUM 151 mmol/L (136-145)
[2022-08-05 08:08] LABS: ALBUMIN 2.2 g/dl (3.4-5.0); CALCIUM 8.3 mg/dL (8.5-10.1); CO2 26 mmol/L (21-32); GLUCOSE,RANDOM 335 mg/dL (74-106); MAGNESIUM 2.1 mg/dL (1.8-2.4)
[2022-08-05 08:12] LABS: CREATININE 0.5 mg/dL (0.55-1.3); SGOT/AST 25 U/L (15-37); SGPT/ALT 60 U/L (13-61)
[2022-08-05 08:13] LABS: BILIRUBIN,TOTAL 0.4 mg/dL (0.2-1); TOT PROT 5.7 g/dl (6.4-8.2)
[2022-08-05 08:14] LABS: ALK PHOS 89 U/L (45-117)
[2022-08-05 08:28] LABS: ANION GAP 9 MMOL/L (8-16)
[2022-08-05 09:27] LABS: IRON SERUM 42 ug/dL (50-175); TOTAL IRON BINDING CAPACITY 118 ug/dL (250-450)
[2022-08-05] MEDS ORDERED: PIPERACILLIN/TAZOB 3.375 GM 3.375 GM in DEXTROSE 5%-WATER - 50 ML IVPB SCH (10:00)
[2022-08-05] MEDS: METOPROLOL TARTRATE 25 MG TABLET (FP) GT SCH ×2 (10:07→17:26)
[2022-08-05] MEDS: levETIRAcetam 500 MG/5 ML INJECTION VIAL IVPB SCH ×2 (10:09→21:40)
[2022-08-05] MEDS: ENOXAPARIN NA (PORCINE) 40 MG/0.4 ML DISP.SYRIN SQ SCH (10:09)
[2022-08-05] MEDS: POLYETHYLENE GLYCOL (HEALTHYLAX) 3350 17 GM PACKET GT SCH ×2 (10:09→21:29)
[2022-08-05] MEDS: KCL 10 MEQ IVPB 10 MEQ/100 ML INFUS.BAG IVPB SCH ×3 (11:15→13:25)
[2022-08-05] MEDS: D5-1/2NS+40 MEQ KCL - 40 MEQ/1,000 ML INFUS.BAG IV SCH (15:25)
[2022-08-05] MEDS: VANCOMYCIN/WATER FOR INJ (PEG) 1,000 MG/200 ML BAG IVPB SCH (15:40)
[2022-08-05] MEDS: PIPERACILLIN/TAZOB 3.375 GM 3.375 GM in DEXTROSE 5%-WATER - 50 ML IVPB SCH (19:46)
[2022-08-05] MEDS: ATORVASTATIN CA 20 MG TABLET (FP) GT SCH (21:31)
[2022-08-06] MEDS: PIPERACILLIN/TAZOB 3.375 GM 3.375 GM in DEXTROSE 5%-WATER - 50 ML IVPB SCH ×3 (03:07→17:51)
[2022-08-06 07:30] LABS: BASO % 0.3 % (0-2.0); EOS % 1.4 % (0-4.5); HEMATOCRIT 27.7 % (32.4-45.2); HEMOGLOBIN 9.3 GM/dL (10.7-15.3); LYMPH % 14.9 % (8-40); MCH 29.4 pg (25.7-33.7); MCHC 33.8 g/dl (32.0-36.0); MEAN CELL VOLUME 86.9 fl (80-96); MEAN PLT VOLUME 8.8 fl (7.5-11.1); NEUT % 77.4 % (42.8-82.8); PLATELET COUNT 127 10^3/uL (134-434); RBC 3.18 M/mm3 (3.60-5.2); RDW 14.9 % (11.6-15.6); WHITE BLOOD COUNT 2.9 K/mm3 (4.0-10.0)
[2022-08-06 07:37] LABS: CALCIUM 8.1 mg/dL (8.5-10.1)
[2022-08-06 07:38] LABS: BLOOD UREA NITROGEN 8.2 mg/dL (7-18)
[2022-08-06] MEDS: ARTIFICIAL TEARS (POLYVINYL ALCOHOL) OPTH DROPS OU SCH ×3 (07:39→21:56)
[2022-08-06 07:41] LABS: CREATININE 0.6 mg/dL (0.55-1.3)
[2022-08-06] MEDS: D5-1/2NS+40 MEQ KCL - 40 MEQ/1,000 ML INFUS.BAG IV SCH (11:01)
[2022-08-06] MEDS: FAMOTIDINE 20 MG/50 ML IVPB 20 MG/50 ML MG IVPB SCH ×2 (11:03→21:56)
[2022-08-06] MEDS: POLYETHYLENE GLYCOL (HEALTHYLAX) 3350 17 GM PACKET GT SCH ×2 (11:03→21:56)
[2022-08-06] MEDS: METOPROLOL TARTRATE 25 MG TABLET (FP) GT SCH ×2 (11:03→17:48)
[2022-08-06] MEDS: ENOXAPARIN NA (PORCINE) 40 MG/0.4 ML DISP.SYRIN SQ SCH (11:03)
[2022-08-06] MEDS: levETIRAcetam 500 MG/5 ML INJECTION VIAL IVPB SCH ×2 (11:03→21:56)
[2022-08-06] MEDS: VANCOMYCIN/WATER FOR INJ (PEG) 1,000 MG/200 ML BAG IVPB SCH (15:29)
[2022-08-06] MEDS: ATORVASTATIN CA 20 MG TABLET (FP) GT SCH (21:56)
[2022-08-07] MEDS: PIPERACILLIN/TAZOB 3.375 GM 3.375 GM in DEXTROSE 5%-WATER - 50 ML IVPB SCH ×3 (02:55→18:05)
[2022-08-07] MEDS: ARTIFICIAL TEARS (POLYVINYL ALCOHOL) OPTH DROPS OU SCH ×3 (05:05→21:34)
[2022-08-07] MEDS: METOPROLOL TARTRATE 25 MG TABLET (FP) GT SCH ×2 (08:23→18:06)
[2022-08-07] MEDS: ENOXAPARIN NA (PORCINE) 40 MG/0.4 ML DISP.SYRIN SQ SCH (09:03)
[2022-08-07] MEDS: levETIRAcetam 500 MG/5 ML INJECTION VIAL IVPB SCH ×2 (09:04→21:35)
[2022-08-07] MEDS: POLYETHYLENE GLYCOL (HEALTHYLAX) 3350 17 GM PACKET GT SCH ×2 (09:04→21:35)
[2022-08-07] MEDS: FAMOTIDINE 20 MG/50 ML IVPB 20 MG/50 ML MG IVPB SCH ×2 (09:10→21:35)
[2022-08-07] MEDS: VANCOMYCIN/WATER FOR INJ (PEG) 1,000 MG/200 ML BAG IVPB SCH (14:22)
[2022-08-07] MEDS: ATORVASTATIN CA 20 MG TABLET (FP) GT SCH (21:35)
[2022-08-08] MEDS: PIPERACILLIN/TAZOB 3.375 GM 3.375 GM in DEXTROSE 5%-WATER - 50 ML IVPB SCH ×2 (02:44→10:27)
[2022-08-08] MEDS: ARTIFICIAL TEARS (POLYVINYL ALCOHOL) OPTH DROPS OU SCH ×3 (06:08→21:43)
[2022-08-08 07:37] LABS: BASO % 0.1 % (0-2.0); HEMATOCRIT 28.5 % (32.4-45.2); HEMOGLOBIN 9.7 GM/dL (10.7-15.3); LYMPH % 21.3 % (8-40); MCH 29.5 pg (25.7-33.7); MCHC 34.1 g/dl (32.0-36.0); MEAN CELL VOLUME 86.4 fl (80-96); MEAN PLT VOLUME 8.3 fl (7.5-11.1); MONO % 5.4 % (3.8-10.2); NEUT % 72.2 % (42.8-82.8); PLATELET COUNT 130 10^3/uL (134-434); RDW 14.7 % (11.6-15.6)
[2022-08-08 08:18] LABS: BLOOD UREA NITROGEN 6.6 mg/dL (7-18)
[2022-08-08 08:20] LABS: ALBUMIN 2.1 g/dl (3.4-5.0)
[2022-08-08 08:21] LABS: CREATININE 0.5 mg/dL (0.55-1.3)
[2022-08-08 08:23] LABS: BILIRUBIN,TOTAL 0.4 mg/dL (0.2-1); TOT PROT 5.6 g/dl (6.4-8.2)
[2022-08-08] MEDS: FAMOTIDINE 20 MG/50 ML IVPB 20 MG/50 ML MG IVPB SCH ×2 (10:27→21:43)
[2022-08-08] MEDS: POLYETHYLENE GLYCOL (HEALTHYLAX) 3350 17 GM PACKET GT SCH ×2 (10:28→21:43)
[2022-08-08] MEDS: ENOXAPARIN NA (PORCINE) 40 MG/0.4 ML DISP.SYRIN SQ SCH (10:28)
[2022-08-08] MEDS: METOPROLOL TARTRATE 25 MG TABLET (FP) GT SCH ×2 (10:28→18:32)
[2022-08-08] MEDS: levETIRAcetam 500 MG/5 ML INJECTION VIAL IVPB SCH ×2 (10:28→21:43)
[2022-08-08] MEDS: VANCOMYCIN/WATER FOR INJ (PEG) 1,000 MG/200 ML BAG IVPB SCH (15:31)
[2022-08-08] MEDS: AMINO ACIDS/PROTEIN HYDROLYS 30 ML LIQUID.PKT GT SCH (18:32)
[2022-08-08] MEDS: ATORVASTATIN CA 20 MG TABLET (FP) GT SCH (21:43)
[2022-08-09] MEDS: ARTIFICIAL TEARS (POLYVINYL ALCOHOL) OPTH DROPS OU SCH ×3 (06:32→21:43)
[2022-08-09 07:47] LABS: HEMATOCRIT 27.9 % (32.4-45.2); HEMOGLOBIN 9.1 GM/dL (10.7-15.3); MCH 28.6 pg (25.7-33.7); MCHC 32.7 g/dl (32.0-36.0); MEAN CELL VOLUME 87.4 fl (80-96); MEAN PLT VOLUME 8.8 fl (7.5-11.1); RBC 3.19 M/mm3 (3.60-5.2)
[2022-08-09 07:55] LABS: PLATELET COUNT 142 10^3/uL (134-434)
[2022-08-09 08:11] LABS: CALCIUM 8.1 mg/dL (8.5-10.1)
[2022-08-09 08:13] LABS: ALBUMIN 2.2 g/dl (3.4-5.0); BLOOD UREA NITROGEN 9.9 mg/dL (7-18)
[2022-08-09 08:15] LABS: CREATININE 0.5 mg/dL (0.55-1.3)
[2022-08-09 08:16] LABS: BILIRUBIN,TOTAL 0.3 mg/dL (0.2-1); TOT PROT 5.6 g/dl (6.4-8.2)
[2022-08-09 09:11] LABS: ANISOCYTOSIS 1+; MACROCYTOSIS 1+
[2022-08-09 09:14] LABS: PLATELET ESTIMATE ADEQUATE
[2022-08-09] MEDS: levETIRAcetam 500 MG/5 ML INJECTION VIAL IVPB SCH ×2 (09:38→21:43)
[2022-08-09] MEDS: FAMOTIDINE 20 MG/50 ML IVPB 20 MG/50 ML MG IVPB SCH ×2 (09:39→21:44)
[2022-08-09] MEDS: AMINO ACIDS/PROTEIN HYDROLYS 30 ML LIQUID.PKT GT SCH ×2 (09:39→17:29)
[2022-08-09] MEDS: METOPROLOL TARTRATE 25 MG TABLET (FP) GT SCH ×2 (09:39→17:30)
[2022-08-09] MEDS: POLYETHYLENE GLYCOL (HEALTHYLAX) 3350 17 GM PACKET GT SCH ×2 (09:39→21:43)
[2022-08-09] MEDS: ENOXAPARIN NA (PORCINE) 40 MG/0.4 ML DISP.SYRIN SQ SCH (09:39)
[2022-08-09] MEDS: VANCOMYCIN/WATER FOR INJ (PEG) 1,000 MG/200 ML BAG IVPB SCH (18:29)
[2022-08-09] MEDS: ATORVASTATIN CA 20 MG TABLET (FP) GT SCH (21:44)
[2022-08-10] MEDS: ARTIFICIAL TEARS (POLYVINYL ALCOHOL) OPTH DROPS OU SCH ×3 (05:41→21:24)
[2022-08-10] MEDS: AMINO ACIDS/PROTEIN HYDROLYS 30 ML LIQUID.PKT GT SCH ×2 (09:27→17:11)
[2022-08-10] MEDS: FAMOTIDINE 20 MG/50 ML IVPB 20 MG/50 ML MG IVPB SCH ×2 (09:27→21:24)
[2022-08-10] MEDS: levETIRAcetam 500 MG/5 ML INJECTION VIAL IVPB SCH ×2 (09:27→21:23)
[2022-08-10] MEDS: POLYETHYLENE GLYCOL (HEALTHYLAX) 3350 17 GM PACKET GT SCH ×2 (09:27→21:24)
[2022-08-10] MEDS: ENOXAPARIN NA (PORCINE) 40 MG/0.4 ML DISP.SYRIN SQ SCH (09:27)
[2022-08-10] MEDS: METOPROLOL TARTRATE 25 MG TABLET (FP) GT SCH ×2 (09:28→17:11)
[2022-08-10] MEDS: VANCOMYCIN/WATER FOR INJ (PEG) 1,000 MG/200 ML BAG IVPB SCH (15:07)
[2022-08-10] MEDS: INSULIN SLIDING SCALE (NOVOLOG) 1 VIAL SQ SCH ×2 (17:10→21:24)
[2022-08-10] MEDS: ATORVASTATIN CA 20 MG TABLET (FP) GT SCH (21:24)
[2022-08-11] MEDS: ARTIFICIAL TEARS (POLYVINYL ALCOHOL) OPTH DROPS OU SCH ×3 (06:17→21:27)
[2022-08-11] MEDS: INSULIN SLIDING SCALE (NOVOLOG) 1 VIAL SQ SCH ×4 (06:17→21:29)
[2022-08-11] MEDS: AMINO ACIDS/PROTEIN HYDROLYS 30 ML LIQUID.PKT GT SCH ×2 (09:14→17:08)
[2022-08-11] MEDS: METOPROLOL TARTRATE 25 MG TABLET (FP) GT SCH ×2 (09:15→17:08)
[2022-08-11] MEDS: levETIRAcetam 500 MG/5 ML INJECTION VIAL IVPB SCH ×2 (09:15→21:26)
[2022-08-11] MEDS: FAMOTIDINE 20 MG/50 ML IVPB 20 MG/50 ML MG IVPB SCH ×2 (09:15→21:26)
[2022-08-11] MEDS: ENOXAPARIN NA (PORCINE) 40 MG/0.4 ML DISP.SYRIN SQ SCH (09:15)
[2022-08-11] MEDS: POLYETHYLENE GLYCOL (HEALTHYLAX) 3350 17 GM PACKET GT SCH ×2 (09:15→21:27)
[2022-08-11] MEDS: VANCOMYCIN/WATER FOR INJ (PEG) 1,000 MG/200 ML BAG IVPB SCH (14:08)
[2022-08-11] MEDS: ATORVASTATIN CA 20 MG TABLET (FP) GT SCH (21:27)
[2022-08-12] MEDS: INSULIN SLIDING SCALE (NOVOLOG) 1 VIAL SQ SCH ×4 (06:27→21:50)
[2022-08-12] MEDS: ARTIFICIAL TEARS (POLYVINYL ALCOHOL) OPTH DROPS OU SCH ×3 (06:27→21:43)
[2022-08-12] MEDS: AMINO ACIDS/PROTEIN HYDROLYS 30 ML LIQUID.PKT GT SCH ×2 (10:49→16:34)
[2022-08-12] MEDS: levETIRAcetam 500 MG/5 ML INJECTION VIAL IVPB SCH ×2 (10:49→21:47)
[2022-08-12] MEDS: METOPROLOL TARTRATE 25 MG TABLET (FP) GT SCH ×2 (10:49→16:34)
[2022-08-12] MEDS: POLYETHYLENE GLYCOL (HEALTHYLAX) 3350 17 GM PACKET GT SCH ×2 (10:49→21:44)
[2022-08-12] MEDS: FAMOTIDINE 20 MG/50 ML IVPB 20 MG/50 ML MG IVPB SCH ×2 (10:49→21:51)
[2022-08-12] MEDS: VANCOMYCIN/WATER 1250 MG 1,250 MG/250 ML BAG IVPB SCH (14:17)
[2022-08-12] MEDS: ATORVASTATIN CA 20 MG TABLET (FP) GT SCH (21:50)
[2022-08-12 21:52] LABS: BASO % 0.2 % (0-2.0); EOS % 0.8 % (0-4.5); HEMOGLOBIN 9.4 GM/dL (10.7-15.3); LYMPH % 27.5 % (8-40); MCH 28.5 pg (25.7-33.7); MCHC 32.3 g/dl (32.0-36.0); MEAN CELL VOLUME 88.2 fl (80-96); MEAN PLT VOLUME 9.7 fl (7.5-11.1); MONO % 9.5 % (3.8-10.2); PLATELET COUNT 105 10^3/uL (134-434); RBC 3.28 M/mm3 (3.60-5.2); RDW 15.2 % (11.6-15.6); WHITE BLOOD COUNT 2.9 K/mm3 (4.0-10.0)
[2022-08-12 22:08] LABS: CALCIUM 8.3 mg/dL (8.5-10.1)
[2022-08-12 22:09] LABS: ALBUMIN 2.3 g/dl (3.4-5.0); BLOOD UREA NITROGEN 16.8 mg/dL (7-18)
[2022-08-12 22:12] LABS: CREATININE 0.4 mg/dL (0.55-1.3)
[2022-08-12 22:14] LABS: BILIRUBIN,TOTAL 0.2 mg/dL (0.2-1); TOT PROT 5.5 g/dl (6.4-8.2)
[2022-08-13] MEDS: ARTIFICIAL TEARS (POLYVINYL ALCOHOL) OPTH DROPS OU SCH ×3 (05:49→21:42)
[2022-08-13] MEDS: INSULIN SLIDING SCALE (NOVOLOG) 1 VIAL SQ SCH ×4 (06:03→21:51)
[2022-08-13] MEDS: METOPROLOL TARTRATE 25 MG TABLET (FP) GT SCH ×2 (10:21→17:13)
[2022-08-13] MEDS: AMINO ACIDS/PROTEIN HYDROLYS 30 ML LIQUID.PKT GT SCH ×2 (10:21→17:13)
[2022-08-13] MEDS: POLYETHYLENE GLYCOL (HEALTHYLAX) 3350 17 GM PACKET GT SCH ×2 (11:22→21:42)
[2022-08-13] MEDS: levETIRAcetam 500 MG/5 ML INJECTION VIAL IVPB SCH ×2 (11:22→21:42)
[2022-08-13] MEDS: FAMOTIDINE 20 MG/50 ML IVPB 20 MG/50 ML MG IVPB SCH ×2 (11:22→21:43)
[2022-08-13] MEDS: VANCOMYCIN/WATER 1250 MG 1,250 MG/250 ML BAG IVPB SCH (15:02)
[2022-08-13] MEDS: ATORVASTATIN CA 20 MG TABLET (FP) GT SCH (21:43)
[2022-08-14] MEDS: ARTIFICIAL TEARS (POLYVINYL ALCOHOL) OPTH DROPS OU SCH ×3 (07:14→21:35)
[2022-08-14] MEDS: INSULIN SLIDING SCALE (NOVOLOG) 1 VIAL SQ SCH ×4 (07:14→21:44)
[2022-08-14] MEDS: POLYETHYLENE GLYCOL (HEALTHYLAX) 3350 17 GM PACKET GT SCH ×2 (10:14→21:41)
[2022-08-14] MEDS: AMINO ACIDS/PROTEIN HYDROLYS 30 ML LIQUID.PKT GT SCH ×2 (10:14→17:47)
[2022-08-14] MEDS: FAMOTIDINE 20 MG/50 ML IVPB 20 MG/50 ML MG IVPB SCH ×2 (10:14→21:44)
[2022-08-14] MEDS: levETIRAcetam 500 MG/5 ML INJECTION VIAL IVPB SCH ×2 (10:15→21:42)
[2022-08-14] MEDS: METOPROLOL TARTRATE 25 MG TABLET (FP) GT SCH ×2 (10:15→17:50)
[2022-08-14] MEDS: VANCOMYCIN/WATER 1250 MG 1,250 MG/250 ML BAG IVPB SCH (17:47)
[2022-08-14] MEDS: ATORVASTATIN CA 20 MG TABLET (FP) GT SCH (21:42)
[2022-08-15] MEDS: INSULIN SLIDING SCALE (NOVOLOG) 1 VIAL SQ SCH ×3 (06:35→17:15)
[2022-08-15] MEDS: ARTIFICIAL TEARS (POLYVINYL ALCOHOL) OPTH DROPS OU SCH ×2 (06:35→14:17)
[2022-08-15 09:40] LABS: BASO % 0.4 % (0-2.0); EOS % 0.8 % (0-4.5); HEMATOCRIT 29.8 % (32.4-45.2); HEMOGLOBIN 9.6 GM/dL (10.7-15.3); LYMPH % 29.8 % (8-40); MCH 28.3 pg (25.7-33.7); MCHC 32.2 g/dl (32.0-36.0); MEAN CELL VOLUME 87.8 fl (80-96); MEAN PLT VOLUME 9.3 fl (7.5-11.1); MONO % 10.9 % (3.8-10.2); NEUT % 58.1 % (42.8-82.8); PLATELET COUNT 127 10^3/uL (134-434)
[2022-08-15] MEDS ORDERED: FAMOTIDINE 40 MG/5 ML ORAL SUSPENSION PEG SCH (10:00)
[2022-08-15] MEDS ORDERED: levETIRAcetam 500 MG/5 ML ORAL SOLUTION (UNIT-DOSE CUPS) PEG SCH (10:00)
[2022-08-15] MEDS: AMINO ACIDS/PROTEIN HYDROLYS 30 ML LIQUID.PKT GT SCH ×2 (10:12→17:14)
[2022-08-15] MEDS: POLYETHYLENE GLYCOL (HEALTHYLAX) 3350 17 GM PACKET GT SCH (10:13)
[2022-08-15] MEDS: METOPROLOL TARTRATE 25 MG TABLET (FP) GT SCH ×2 (10:13→17:15)
[2022-08-15 11:36] LABS: CALCIUM 8.7 mg/dL (8.5-10.1)
[2022-08-15 11:37] LABS: ALBUMIN 2.4 g/dl (3.4-5.0); BLOOD UREA NITROGEN 11.4 mg/dL (7-18)
[2022-08-15 11:40] LABS: CREATININE 0.4 mg/dL (0.55-1.3)
[2022-08-15 11:42] LABS: BILIRUBIN,TOTAL 0.4 mg/dL (0.2-1); TOT PROT 5.8 g/dl (6.4-8.2)
[2022-08-15 14:26] VITALS: TEMP 98.4
[2022-08-15] MEDS: VANCOMYCIN/WATER 1250 MG 1,250 MG/250 ML BAG IVPB SCH (16:17)
[2022-08-15 18:59] VITALS: BP 154/74; PULSE 65; RESP 16
== END 2022-08-15 19:00 | DRG 222 ==
LOC: JER 08:14 → JERBED 08:41 → J2W 08-05 03:59
PROVIDERS: ADMIT Family Medicine; ATTEND Family Medicine
PROC: 0DP63UZ Removal of Feeding Device from Stomach, Percutaneous Approach (ICD-10-PCS; principal; 2022-08-04)
PROC: 0D9P70Z Drainage of Rectum with Drainage Device, Via Natural or Artificial Opening (ICD-10-PCS; 2022-08-04)
PROC: 0DH63UZ Insertion of Feeding Device into Stomach, Percutaneous Approach (ICD-10-PCS; 2022-08-04)
PROC: 5A1955Z Respiratory Ventilation, Greater than 96 Consecutive Hours (ICD-10-PCS; 2022-08-04)
PROC: 30233N1 Transfusion of Nonautologous Red Blood Cells into Peripheral Vein, Percutaneous Approach (ICD-10-PCS; 2022-08-05)
DX: K94.23 Gastrostomy malfunction (principal); J96.11 Chronic respiratory failure with hypoxia; L89.223 Pressure ulcer of left hip, stage 3; R53.2 Functional quadriplegia; R78.81 Bacteremia; T80.818A Extravasation of other vesicant agent, initial encounter; B95.61 Methicillin susceptible Staphylococcus aureus infection as the cause of diseases classified elsewhere; D64.9 Anemia, unspecified; E11.9 Type 2 diabetes mellitus without complications; E87.6 Hypokalemia; K63.89 Other specified diseases of intestine; Y92.89 Other specified places as the place of occurrence of the external cause; Y83.9 Surgical procedure, unspecified as the cause of abnormal reaction of the patient, or of later complication, without mention of misadventure at the time of the procedure
CPT/HCPCS: 0241U-QW; 36415; 36430; 71045-TC-FY; 74018-TC-FY; 74177-TC; 76937; 80048; 80053; 80177; 81003; 82010; 82272; 82550; 82553; 82728; 82803; 82962; 83036; 83540; 83550; 83605; 83735; 84443; 84484; 85025; 85610; 85730; 86850; 86900; 86901; 86922; 87040; 87086; 87186; 87324; 87449; 93005; 93010; 93306-TC; 94002; 99285-25; C9803-CS; G0480; P9058; Q9967; U0003; U0005

== ENCOUNTER 2022-08-21 06:23 | Inpatient (IN) | payer OTHER ==
[2022-08-21] MEDS ORDERED: VANCOMYCIN 1,000 MG in DEXTROSE 5%-WATER - 250 ML IVPB ONE (06:44)
[2022-08-21] MEDS ORDERED: CEFEPIME HCL/D5W 1 GM/50 ML BAG IVPB ONE (06:45)
[2022-08-21] MEDS ORDERED: LACTATED RINGERS SOLUTION 1000 ML INFUS.BAG IV ONE ×2 (07:30→09:11)
[2022-08-21] MEDS ORDERED: ACETAMINOPHEN 1000 MG/100 ML BAG IVPB ONE (07:30)
[2022-08-21] MEDS ORDERED: ACETAMINOPHEN INJECTION 100 ML IVPB ONE (07:36)
[2022-08-21] MEDS ORDERED: VANCOMYCIN/WATER FOR INJ (PEG) 1,000 MG/200 ML BAG IVPB ONE ×2 (07:36→07:37)
[2022-08-21] MEDS ORDERED: CEFEPIME 1 GM/100 ML BAG IVPB ONE (07:36)
[2022-08-21 07:49] LABS: INR 1.21 (0.83-1.09)
[2022-08-21 07:52] LABS: ACTIVATED PTT 31.9 SECONDS (25.2-36.5)
[2022-08-21 07:56] LABS: CHLORIDE 109 mmol/L (98-107); SODIUM 144 mmol/L (136-145)
[2022-08-21 07:58] LABS: CALCIUM 8.7 mg/dL (8.5-10.1)
[2022-08-21 07:59] LABS: ALBUMIN 2.6 g/dl (3.4-5.0); ANION GAP 13 MMOL/L (8-16); BLOOD UREA NITROGEN 29.4 mg/dL (7-18); CO2 22 mmol/L (21-32)
[2022-08-21 08:02] LABS: CREATININE 1.2 mg/dL (0.55-1.3); SGOT/AST 23 U/L (15-37); SGPT/ALT 29 U/L (13-61)
[2022-08-21 08:04] LABS: BILIRUBIN,TOTAL 0.5 mg/dL (0.2-1); TOT PROT 6.6 g/dl (6.4-8.2)
[2022-08-21 08:16] LABS: VENOUS BASE EXCESS -1.3 mmol/L (-2-2); VENOUS O2 SATURATION 99.1 % (70-80); VENOUS PCO2 27.5 mmHg (38-52); VENOUS PH 7.499 (7.310-7.410)
[2022-08-21 08:33] LABS: BASO % 0.5 % (0-2.0); HEMATOCRIT 33.4 % (32.4-45.2); HEMOGLOBIN 10.7 GM/dL (10.7-15.3); MCH 28.4 pg (25.7-33.7); MCHC 32.1 g/dl (32.0-36.0); MEAN CELL VOLUME 88.4 fl (80-96); MEAN PLT VOLUME 9.6 fl (7.5-11.1); MONO % 12.4 % (3.8-10.2); NEUT % 79.1 % (42.8-82.8); PLATELET COUNT 192 10^3/uL (134-434); RBC 3.78 M/mm3 (3.60-5.2); RDW 16.3 % (11.6-15.6); WHITE BLOOD COUNT 5.9 K/mm3 (4.0-10.0)
[2022-08-21 09:01] LABS: EPI CELLS 14 /uL (0-25.1); HYALINE CASTS 2 /uL (0-3.1); PH,URINE 8.5 (5.0-8.0); URINE APPEARANCE TURBID; URINE BACTERIA >9,000 /uL (0-1359); URINE BILIRUBIN NEGATIVE (NEGATIVE); URINE COLOR ORANGE; URINE GLUCOSE (UA) 1+ (NEGATIVE); URINE KETONE NEGATIVE (NEGATIVE); URINE LEUK ESTERASE 3+ (NEGATIVE); URINE NITRITE NEGATIVE (NEGATIVE); URINE PROTEIN 4+ (NEGATIVE); URINE RBC 2292 /uL (0-23.9); URINE UROBILINOGEN 0.2 mg/dL (0.2-1.0); URINE WBC 5345 /uL (0-25.8)
[2022-08-21 09:03] LABS: ALK PHOS 133 U/L (45-117); GLUCOSE,RANDOM 538 mg/dL (74-106)
[2022-08-21 09:04] LABS: LACTIC ACID 4.9 mmol/L (0.4-2.0)
[2022-08-21 13:12] LABS: LACTIC ACID 6.1 mmol/L (0.4-2.0)
[2022-08-21] MEDS ORDERED: LACTATED RINGERS SOLUTION 1,000 ML/1,000 ML INFUS.BAG IV SCH (13:30)
[2022-08-21] MEDS ORDERED: METOPROLOL TARTRATE 25 MG TABLET (FP) ONE (17:13)
[2022-08-21] MEDS ORDERED: levETIRAcetam 500 MG TABLET (FP) PO ONE (17:13)
[2022-08-21] MEDS ORDERED: PIPERACILLIN/TAZOB 4.5 GM 4.5 GM/100 ML BAG IVPB ONE (17:14)
[2022-08-21] MEDS: METOPROLOL TARTRATE 25 MG TABLET (FP) GT SCH (17:16)
[2022-08-21] MEDS: levETIRAcetam 500 MG/5 ML ORAL SOLUTION (UNIT-DOSE CUPS) GT SCH (17:16)
[2022-08-21] MEDS: PIPERACILLIN/TAZOB 4.5 GM 4.5 GM in DEXTROSE 5%-WATER 100 ML IVPB SCH (17:17)
[2022-08-21] MEDS ORDERED: PIPERACILLIN/TAZOB 3.375 GM 3.375 GM/50 ML BAG IVPB ONE (17:21)
[2022-08-21 17:45] LABS: LACTIC ACID 4.1 mmol/L (0.4-2.0)
[2022-08-21] MEDS ORDERED: PIPERACILLIN/TAZOB 4.5 GM 4.5 GM in DEXTROSE 5%-WATER 100 ML IVPB SCH (18:00)
[2022-08-21] MEDS: ATORVASTATIN CA 20 MG TABLET (FP) GT SCH (23:30)
[2022-08-22] MEDS ORDERED: SODIUM CHLORIDE 1,000 ML IV STA (00:29)
[2022-08-22] MEDS: PIPERACILLIN/TAZOB 4.5 GM 4.5 GM in DEXTROSE 5%-WATER 100 ML IVPB SCH ×2 (02:22→10:23)
[2022-08-22] MEDS: levETIRAcetam 500 MG/5 ML ORAL SOLUTION (UNIT-DOSE CUPS) GT SCH ×2 (06:40→17:36)
[2022-08-22 07:25] LABS: HEMATOCRIT 21.3 % (32.4-45.2); MCH 28.6 pg (25.7-33.7); MCHC 32.9 g/dl (32.0-36.0); MEAN PLT VOLUME 8.8 fl (7.5-11.1); PLATELET COUNT 102 10^3/uL (134-434); RBC 2.45 M/mm3 (3.60-5.2); RDW 15.5 % (11.6-15.6); WHITE BLOOD COUNT 2.4 K/mm3 (4.0-10.0)
[2022-08-22 07:58] LABS: CALCIUM 8.7 mg/dL (8.5-10.1)
[2022-08-22 08:01] LABS: CREATININE 0.5 mg/dL (0.55-1.3); PHOSPHOROUS 2.2 mg/dL (2.5-4.9)
[2022-08-22 08:04] LABS: BILIRUBIN,TOTAL 0.5 mg/dL (0.2-1)
[2022-08-22] MEDS: KCL 10 MEQ IVPB 10 MEQ/100 ML INFUS.BAG IVPB SCH ×2 (08:59→10:49)
[2022-08-22] MEDS ORDERED: D5-1/2NS+30 MEQ KCL - 30 MEQ/1,000 ML INFUS.BAG IV SCH (09:00)
[2022-08-22 09:27] LABS: ANISOCYTOSIS 0; HELMET CELLS 0; HOWELL-JOLLY BODIES 0; MACROCYTOSIS 0; OVALOCYTE 0; ROULEAU 0; SICKELED CELLS 0; TARGET CELLS 0; TEAR DROP CELLS 0; TOXIC GRANULATION 0
[2022-08-22] MEDS: ENOXAPARIN NA (PORCINE) 40 MG/0.4 ML DISP.SYRIN SQ SCH (09:27)
[2022-08-22] MEDS ORDERED: VANCOMYCIN 1 GM/200 ML PREMIX BAG (RESTRICTED TO ID ONLY) IVPB SCH (10:00)
[2022-08-22] MEDS ORDERED: VANCOMYCIN 1 GM in D5W (PRE-DOCKED) 1,000 MG/250 ML IVPB SCH (10:00)
[2022-08-22] MEDS: PANTOPRAZOLE SODIUM 40 MG VIAL IVPUSH SCH ×2 (10:23→21:32)
[2022-08-22] MEDS: AMINO ACIDS/PROTEIN HYDROLYS 30 ML LIQUID.PKT GT SCH (15:05)
[2022-08-22] MEDS: METOPROLOL TARTRATE 25 MG TABLET (FP) GT SCH ×2 (15:06→17:36)
[2022-08-22] MEDS: D5-1/2NS+20 MEQ KCL - 20 MEQ/1,000 ML INFUS.BAG IV SCH (15:21)
[2022-08-22] MEDS: INSULIN SLIDING SCALE (NOVOLOG) 1 VIAL SQ SCH ×4 (16:21→22:13)
[2022-08-22] MEDS: ATORVASTATIN CA 20 MG TABLET (FP) GT SCH (21:32)
[2022-08-23] MEDS: MEROPENEM 500 MG in DEXTROSE 5%-WATER 100 ML IVPB SCH ×3 (01:05→18:40)
[2022-08-23] MEDS: INSULIN SLIDING SCALE (NOVOLOG) 1 VIAL SQ SCH ×4 (04:17→22:51)
[2022-08-23] MEDS: levETIRAcetam 500 MG/5 ML ORAL SOLUTION (UNIT-DOSE CUPS) GT SCH ×2 (05:59→18:40)
[2022-08-23 08:06] LABS: HEMATOCRIT 22.4 % (32.4-45.2); HEMOGLOBIN 7.4 GM/dL (10.7-15.3); MCH 28.4 pg (25.7-33.7); MCHC 32.9 g/dl (32.0-36.0); MEAN CELL VOLUME 86.3 fl (80-96); MEAN PLT VOLUME 8.5 fl (7.5-11.1); PLATELET COUNT 91 10^3/uL (134-434); RDW 15.5 % (11.6-15.6)
[2022-08-23 08:23] LABS: WHITE BLOOD COUNT 1.8 K/mm3 (4.0-10.0)
[2022-08-23] MEDS: AMINO ACIDS/PROTEIN HYDROLYS 30 ML LIQUID.PKT GT SCH ×2 (08:55→18:00)
[2022-08-23] MEDS: METOPROLOL TARTRATE 25 MG TABLET (FP) GT SCH ×2 (08:55→17:55)
[2022-08-23] MEDS: PANTOPRAZOLE SODIUM 40 MG VIAL IVPUSH SCH ×2 (09:00→21:08)
[2022-08-23] MEDS: ENOXAPARIN NA (PORCINE) 40 MG/0.4 ML DISP.SYRIN SQ SCH (09:01)
[2022-08-23 10:00] LABS: ANISOCYTOSIS 1+; MACROCYTOSIS 1+
[2022-08-23] MEDS: D5-1/2NS+20 MEQ KCL - 20 MEQ/1,000 ML INFUS.BAG IV SCH ×2 (15:15→18:49)
[2022-08-23] MEDS: ATORVASTATIN CA 20 MG TABLET (FP) GT SCH (21:08)
[2022-08-24] MEDS: MEROPENEM 500 MG in DEXTROSE 5%-WATER 100 ML IVPB SCH ×3 (02:32→17:47)
[2022-08-24] MEDS: INSULIN SLIDING SCALE (NOVOLOG) 1 VIAL SQ SCH ×4 (05:56→23:55)
[2022-08-24] MEDS: AMINO ACIDS/PROTEIN HYDROLYS 30 ML LIQUID.PKT GT SCH ×3 (09:47→16:43)
[2022-08-24] MEDS: levETIRAcetam 500 MG/5 ML ORAL SOLUTION (UNIT-DOSE CUPS) GT SCH ×2 (09:50→17:14)
[2022-08-24] MEDS: ENOXAPARIN NA (PORCINE) 40 MG/0.4 ML DISP.SYRIN SQ SCH (09:50)
[2022-08-24] MEDS: POLYETHYLENE GLYCOL (HEALTHYLAX) 3350 17 GM PACKET GT SCH ×2 (09:52→21:35)
[2022-08-24] MEDS: PANTOPRAZOLE SODIUM 40 MG VIAL IVPUSH SCH ×2 (09:52→21:35)
[2022-08-24] MEDS: METOPROLOL TARTRATE 25 MG TABLET (FP) GT SCH ×2 (09:52→17:14)
[2022-08-24] MEDS: MULTIVIT-MINERALS ORAL LIQUID GT SCH (09:52)
[2022-08-24] MEDS ORDERED: ASCORBIC ACID 500 MG/5 ML UNIT DOSE CUP GT SCH (10:00)
[2022-08-24 13:41] VITALS: BMI 27.9
[2022-08-24] MEDS: D5-1/2NS+20 MEQ KCL - 20 MEQ/1,000 ML INFUS.BAG IV SCH (19:15)
[2022-08-24] MEDS: ATORVASTATIN CA 20 MG TABLET (FP) GT SCH (21:35)
[2022-08-25] MEDS: MEROPENEM 500 MG in DEXTROSE 5%-WATER 100 ML IVPB SCH ×3 (02:11→18:34)
[2022-08-25] MEDS: levETIRAcetam 500 MG/5 ML ORAL SOLUTION (UNIT-DOSE CUPS) GT SCH ×2 (05:15→18:54)
[2022-08-25] MEDS: INSULIN SLIDING SCALE (NOVOLOG) 1 VIAL SQ SCH ×4 (05:43→23:00)
[2022-08-25 08:08] LABS: BASO % 0.4 % (0-2.0); EOS % 1.3 % (0-4.5); HEMATOCRIT 23.1 % (32.4-45.2); HEMOGLOBIN 7.7 GM/dL (10.7-15.3); LYMPH % 30.7 % (8-40); MCHC 33.3 g/dl (32.0-36.0); MEAN PLT VOLUME 9.2 fl (7.5-11.1); MONO % 8.5 % (3.8-10.2); NEUT % 59.1 % (42.8-82.8); PLATELET COUNT 133 10^3/uL (134-434); RBC 2.66 M/mm3 (3.60-5.2); RDW 15.2 % (11.6-15.6); WHITE BLOOD COUNT 2.3 K/mm3 (4.0-10.0)
[2022-08-25 08:14] LABS: CALCIUM 8.1 mg/dL (8.5-10.1)
[2022-08-25 08:15] LABS: ALBUMIN 2.3 g/dl (3.4-5.0); BLOOD UREA NITROGEN 10.4 mg/dL (7-18)
[2022-08-25 08:18] LABS: CREATININE 0.5 mg/dL (0.55-1.3)
[2022-08-25 08:19] LABS: BILIRUBIN,TOTAL 0.2 mg/dL (0.2-1); TOT PROT 5.8 g/dl (6.4-8.2)
[2022-08-25] MEDS: MULTIVIT-MINERALS ORAL LIQUID GT SCH (09:10)
[2022-08-25] MEDS: METOPROLOL TARTRATE 25 MG TABLET (FP) GT SCH ×2 (09:10→18:34)
[2022-08-25] MEDS: AMINO ACIDS/PROTEIN HYDROLYS 30 ML LIQUID.PKT GT SCH ×3 (09:11→18:34)
[2022-08-25] MEDS: ENOXAPARIN NA (PORCINE) 40 MG/0.4 ML DISP.SYRIN SQ SCH (09:11)
[2022-08-25] MEDS: PANTOPRAZOLE SODIUM 40 MG VIAL IVPUSH SCH ×2 (09:11→22:30)
[2022-08-25] MEDS: POLYETHYLENE GLYCOL (HEALTHYLAX) 3350 17 GM PACKET GT SCH ×2 (09:12→22:30)
[2022-08-25] MEDS: ASCORBIC ACID 500 MG TABLET (FP) GT SCH (09:56)
[2022-08-25] MEDS: ATORVASTATIN CA 20 MG TABLET (FP) GT SCH (22:30)
[2022-08-26] MEDS: MEROPENEM 500 MG in DEXTROSE 5%-WATER 100 ML IVPB SCH ×3 (02:34→18:02)
[2022-08-26] MEDS: INSULIN SLIDING SCALE (NOVOLOG) 1 VIAL SQ SCH ×4 (06:20→22:48)
[2022-08-26] MEDS: levETIRAcetam 500 MG/5 ML ORAL SOLUTION (UNIT-DOSE CUPS) GT SCH ×2 (06:44→18:02)
[2022-08-26 07:41] LABS: HEMATOCRIT 25.4 % (32.4-45.2); HEMOGLOBIN 8.3 GM/dL (10.7-15.3); MCH 28.6 pg (25.7-33.7); MCHC 32.7 g/dl (32.0-36.0); MEAN CELL VOLUME 87.4 fl (80-96); MEAN PLT VOLUME 9.5 fl (7.5-11.1); PLATELET COUNT 128 10^3/uL (134-434); RBC 2.91 M/mm3 (3.60-5.2); RDW 15.6 % (11.6-15.6); WHITE BLOOD COUNT 2.6 K/mm3 (4.0-10.0)
[2022-08-26 08:02] LABS: ALBUMIN 2.2 g/dl (3.4-5.0); CALCIUM 8.1 mg/dL (8.5-10.1)
[2022-08-26 08:03] LABS: BLOOD UREA NITROGEN 13.3 mg/dL (7-18)
[2022-08-26 08:06] LABS: CREATININE 0.4 mg/dL (0.55-1.3)
[2022-08-26 08:08] LABS: BILIRUBIN,TOTAL 0.2 mg/dL (0.2-1); TOT PROT 5.4 g/dl (6.4-8.2)
[2022-08-26 08:44] LABS: ANISOCYTOSIS 0; HELMET CELLS 0; HOWELL-JOLLY BODIES 0; MACROCYTOSIS 0; OVALOCYTE 0; ROULEAU 0; SICKELED CELLS 0; TARGET CELLS 0; TEAR DROP CELLS 0; TOXIC GRANULATION 0
[2022-08-26] MEDS: ASCORBIC ACID 500 MG TABLET (FP) GT SCH (11:00)
[2022-08-26] MEDS: PANTOPRAZOLE SODIUM 40 MG VIAL IVPUSH SCH ×2 (11:00→21:11)
[2022-08-26] MEDS: MULTIVIT-MINERALS ORAL LIQUID GT SCH (11:00)
[2022-08-26] MEDS: ENOXAPARIN NA (PORCINE) 40 MG/0.4 ML DISP.SYRIN SQ SCH (11:00)
[2022-08-26] MEDS: AMINO ACIDS/PROTEIN HYDROLYS 30 ML LIQUID.PKT GT SCH ×3 (11:00→18:02)
[2022-08-26] MEDS: POLYETHYLENE GLYCOL (HEALTHYLAX) 3350 17 GM PACKET GT SCH ×2 (11:00→21:11)
[2022-08-26] MEDS: METOPROLOL TARTRATE 25 MG TABLET (FP) GT SCH ×2 (11:00→18:02)
[2022-08-26] MEDS: D5-1/2NS+20 MEQ KCL - 20 MEQ/1,000 ML INFUS.BAG IV SCH (18:02)
[2022-08-26] MEDS: ATORVASTATIN CA 20 MG TABLET (FP) GT SCH (21:11)
[2022-08-27] MEDS: D5-1/2NS+20 MEQ KCL - 20 MEQ/1,000 ML INFUS.BAG IV SCH ×2 (02:55→16:44)
[2022-08-27] MEDS: INSULIN SLIDING SCALE (NOVOLOG) 1 VIAL SQ SCH ×4 (06:59→22:01)
[2022-08-27] MEDS: levETIRAcetam 500 MG/5 ML ORAL SOLUTION (UNIT-DOSE CUPS) GT SCH ×2 (07:01→18:02)
[2022-08-27] MEDS: AMINO ACIDS/PROTEIN HYDROLYS 30 ML LIQUID.PKT GT SCH ×3 (09:03→16:44)
[2022-08-27] MEDS: METOPROLOL TARTRATE 25 MG TABLET (FP) GT SCH ×2 (09:03→16:44)
[2022-08-27] MEDS: ASCORBIC ACID 500 MG TABLET (FP) GT SCH (10:02)
[2022-08-27] MEDS: PANTOPRAZOLE SODIUM 40 MG VIAL IVPUSH SCH ×2 (10:02→21:31)
[2022-08-27] MEDS: POLYETHYLENE GLYCOL (HEALTHYLAX) 3350 17 GM PACKET GT SCH ×2 (10:03→21:29)
[2022-08-27] MEDS: ENOXAPARIN NA (PORCINE) 40 MG/0.4 ML DISP.SYRIN SQ SCH (10:03)
[2022-08-27] MEDS: MULTIVIT-MINERALS ORAL LIQUID GT SCH (13:21)
[2022-08-27] MEDS: ATORVASTATIN CA 20 MG TABLET (FP) GT SCH (21:30)
[2022-08-28] MEDS: levETIRAcetam 500 MG/5 ML ORAL SOLUTION (UNIT-DOSE CUPS) GT SCH ×2 (05:43→17:08)
[2022-08-28] MEDS: INSULIN SLIDING SCALE (NOVOLOG) 1 VIAL SQ SCH ×4 (05:47→23:00)
[2022-08-28] MEDS: METOPROLOL TARTRATE 25 MG TABLET (FP) GT SCH ×2 (08:46→17:03)
[2022-08-28] MEDS: AMINO ACIDS/PROTEIN HYDROLYS 30 ML LIQUID.PKT GT SCH ×3 (08:46→17:03)
[2022-08-28] MEDS: PANTOPRAZOLE SODIUM 40 MG VIAL IVPUSH SCH ×2 (10:20→21:29)
[2022-08-28] MEDS: ENOXAPARIN NA (PORCINE) 40 MG/0.4 ML DISP.SYRIN SQ SCH (10:20)
[2022-08-28] MEDS: POLYETHYLENE GLYCOL (HEALTHYLAX) 3350 17 GM PACKET GT SCH ×2 (10:21→21:30)
[2022-08-28] MEDS: MULTIVIT-MINERALS ORAL LIQUID GT SCH (10:21)
[2022-08-28] MEDS: ASCORBIC ACID 500 MG TABLET (FP) GT SCH (10:21)
[2022-08-28] MEDS: ACETAMINOPHEN 325 MG TABLET (FP) PO PRN (17:02)
[2022-08-28] MEDS: D5-1/2NS+20 MEQ KCL - 20 MEQ/1,000 ML INFUS.BAG IV SCH (17:09)
[2022-08-28] MEDS: ATORVASTATIN CA 20 MG TABLET (FP) GT SCH (21:29)
[2022-08-29] MEDS: INSULIN SLIDING SCALE (NOVOLOG) 1 VIAL SQ SCH ×4 (06:28→23:23)
[2022-08-29] MEDS: levETIRAcetam 500 MG/5 ML ORAL SOLUTION (UNIT-DOSE CUPS) GT SCH ×2 (06:29→17:29)
[2022-08-29] MEDS: AMINO ACIDS/PROTEIN HYDROLYS 30 ML LIQUID.PKT GT SCH ×3 (08:45→17:28)
[2022-08-29] MEDS: METOPROLOL TARTRATE 25 MG TABLET (FP) GT SCH ×2 (08:45→17:29)
[2022-08-29] MEDS: ENOXAPARIN NA (PORCINE) 40 MG/0.4 ML DISP.SYRIN SQ SCH (10:18)
[2022-08-29] MEDS: PANTOPRAZOLE 40 MG TABLET PO SCH ×2 (10:18→22:22)
[2022-08-29] MEDS: ASCORBIC ACID 500 MG TABLET (FP) GT SCH (10:18)
[2022-08-29] MEDS: MULTIVIT-MINERALS ORAL LIQUID GT SCH (10:18)
[2022-08-29] MEDS: POLYETHYLENE GLYCOL (HEALTHYLAX) 3350 17 GM PACKET GT SCH ×2 (10:19→22:22)
[2022-08-29 12:47] LABS: BASO % 0.6 % (0-2.0); EOS % 0.9 % (0-4.5); HEMATOCRIT 22.9 % (32.4-45.2); HEMOGLOBIN 7.5 GM/dL (10.7-15.3); MCH 28.7 pg (25.7-33.7); MCHC 32.8 g/dl (32.0-36.0); MEAN CELL VOLUME 87.5 fl (80-96); MEAN PLT VOLUME 9.4 fl (7.5-11.1); MONO % 8.6 % (3.8-10.2); NEUT % 70.9 % (42.8-82.8); PLATELET COUNT 195 10^3/uL (134-434); RBC 2.61 M/mm3 (3.60-5.2); RDW 16.4 % (11.6-15.6); WHITE BLOOD COUNT 4.9 K/mm3 (4.0-10.0)
[2022-08-29 13:16] LABS: PLATELET ESTIMATE ADEQUATE
[2022-08-29] MEDS: ACETAMINOPHEN 325 MG TABLET (FP) PO PRN ×2 (17:47→23:23)
[2022-08-29] MEDS: ATORVASTATIN CA 20 MG TABLET (FP) GT SCH (22:22)
[2022-08-30] MEDS ORDERED: levETIRAcetam 500 MG/5 ML INJECTION VIAL IVPB SCH (01:45)
[2022-08-30] MEDS: levETIRAcetam 500 MG/5 ML INJECTION VIAL IVPB SCH ×2 (05:27→17:13)
[2022-08-30] MEDS: INSULIN SLIDING SCALE (NOVOLOG) 1 VIAL SQ SCH ×4 (05:27→23:00)
[2022-08-30] MEDS: AMINO ACIDS/PROTEIN HYDROLYS 30 ML LIQUID.PKT GT SCH ×2 (12:17→17:14)
[2022-08-30] MEDS: MULTIVIT-MINERALS ORAL LIQUID GT SCH (12:18)
[2022-08-30] MEDS: POLYETHYLENE GLYCOL (HEALTHYLAX) 3350 17 GM PACKET GT SCH ×2 (12:18→21:00)
[2022-08-30] MEDS: METOPROLOL TARTRATE 25 MG TABLET (FP) GT SCH ×2 (12:18→17:13)
[2022-08-30] MEDS: ASCORBIC ACID 500 MG TABLET (FP) GT SCH (12:19)
[2022-08-30] MEDS: PANTOPRAZOLE 40 MG TABLET PO SCH (12:19)
[2022-08-30] MEDS: ENOXAPARIN NA (PORCINE) 40 MG/0.4 ML DISP.SYRIN SQ SCH (12:25)
[2022-08-30] MEDS: ATORVASTATIN CA 20 MG TABLET (FP) GT SCH (21:00)
[2022-08-31] MEDS: INSULIN SLIDING SCALE (NOVOLOG) 1 VIAL SQ SCH ×4 (05:10→22:28)
[2022-08-31] MEDS: levETIRAcetam 500 MG/5 ML INJECTION VIAL IVPB SCH ×2 (05:14→17:06)
[2022-08-31] MEDS: METOPROLOL TARTRATE 25 MG TABLET (FP) GT SCH ×2 (10:01→17:07)
[2022-08-31] MEDS: AMINO ACIDS/PROTEIN HYDROLYS 30 ML LIQUID.PKT GT SCH ×3 (10:01→17:07)
[2022-08-31] MEDS: ASCORBIC ACID 500 MG TABLET (FP) GT SCH (10:01)
[2022-08-31] MEDS: MULTIVIT-MINERALS ORAL LIQUID GT SCH (10:02)
[2022-08-31] MEDS: ENOXAPARIN NA (PORCINE) 40 MG/0.4 ML DISP.SYRIN SQ SCH (10:02)
[2022-08-31] MEDS: POLYETHYLENE GLYCOL (HEALTHYLAX) 3350 17 GM PACKET GT SCH ×2 (10:02→22:28)
[2022-08-31] MEDS: ATORVASTATIN CA 20 MG TABLET (FP) GT SCH (22:28)
[2022-09-01] MEDS: INSULIN SLIDING SCALE (NOVOLOG) 1 VIAL SQ SCH ×3 (05:25→16:49)
[2022-09-01] MEDS: levETIRAcetam 500 MG/5 ML INJECTION VIAL IVPB SCH (05:25)
[2022-09-01 07:04] VITALS: RESP 18
[2022-09-01] MEDS: METOPROLOL TARTRATE 25 MG TABLET (FP) GT SCH ×2 (09:51→16:03)
[2022-09-01] MEDS: POLYETHYLENE GLYCOL (HEALTHYLAX) 3350 17 GM PACKET GT SCH (09:51)
[2022-09-01] MEDS: AMINO ACIDS/PROTEIN HYDROLYS 30 ML LIQUID.PKT GT SCH ×2 (09:52→12:45)
[2022-09-01] MEDS: ENOXAPARIN NA (PORCINE) 40 MG/0.4 ML DISP.SYRIN SQ SCH (09:52)
[2022-09-01] MEDS: MULTIVIT-MINERALS ORAL LIQUID GT SCH (09:52)
[2022-09-01] MEDS: ASCORBIC ACID 500 MG TABLET (FP) GT SCH (09:52)
[2022-09-01 11:51] LABS: BASO % 0.3 % (0-2.0); EOS % 0.6 % (0-4.5); HEMATOCRIT 26.9 % (32.4-45.2); HEMOGLOBIN 8.9 GM/dL (10.7-15.3); MCH 28.6 pg (25.7-33.7); MCHC 33.2 g/dl (32.0-36.0); MEAN CELL VOLUME 86.1 fl (80-96); MEAN PLT VOLUME 8.3 fl (7.5-11.1); MONO % 6.8 % (3.8-10.2); NEUT % 77.3 % (42.8-82.8); PLATELET COUNT 207 10^3/uL (134-434); RBC 3.12 M/mm3 (3.60-5.2); RDW 15.6 % (11.6-15.6); WHITE BLOOD COUNT 4.2 K/mm3 (4.0-10.0)
[2022-09-01 12:02] LABS: CALCIUM 8.3 mg/dL (8.5-10.1)
[2022-09-01 12:03] LABS: ALBUMIN 2.3 g/dl (3.4-5.0); BLOOD UREA NITROGEN 11.4 mg/dL (7-18)
[2022-09-01 12:06] LABS: CREATININE 0.5 mg/dL (0.55-1.3)
[2022-09-01 12:07] LABS: TOT PROT 5.8 g/dl (6.4-8.2)
[2022-09-01 12:08] LABS: BILIRUBIN,TOTAL 0.3 mg/dL (0.2-1)
[2022-09-01 15:36] VITALS: BP 166/88; PULSE 91; TEMP 97.4
== END 2022-09-01 17:23 | DRG 720 ==
LOC: JER 06:23 → JERBED 15:20 → J2W 23:23 → J5S 08-26 23:45
PROVIDERS: ADMIT Internal Medicine; ATTEND Internal Medicine
PROC: 5A1955Z Respiratory Ventilation, Greater than 96 Consecutive Hours (ICD-10-PCS; principal; 2022-08-21)
PROC: 0D20XUZ Change Feeding Device in Upper Intestinal Tract, External Approach (ICD-10-PCS; 2022-08-30)
PROC: 30233N1 Transfusion of Nonautologous Red Blood Cells into Peripheral Vein, Percutaneous Approach (ICD-10-PCS; 2022-08-30)
DX: A41.59 Other Gram-negative sepsis (principal); R00.0 Tachycardia, unspecified; I95.9 Hypotension, unspecified; N39.0 Urinary tract infection, site not specified; R53.2 Functional quadriplegia; E87.20 Acidosis, unspecified; E78.5 Hyperlipidemia, unspecified; I10 Essential (primary) hypertension; N17.9 Acute kidney failure, unspecified; K63.89 Other specified diseases of intestine; I69.359 Hemiplegia and hemiparesis following cerebral infarction affecting unspecified side; G40.909 Epilepsy, unspecified, not intractable, without status epilepticus; F03.90 Unspecified dementia, unspecified severity, without behavioral disturbance, psychotic disturbance, mood disturbance, and anxiety; E87.6 Hypokalemia; T85.528A Displacement of other gastrointestinal prosthetic devices, implants and grafts, initial encounter; Y84.8 Other medical procedures as the cause of abnormal reaction of the patient, or of later complication, without mention of misadventure at the time of the procedure; K59.81 Ogilvie syndrome; D69.6 Thrombocytopenia, unspecified; D64.9 Anemia, unspecified; B96.4 Proteus (mirabilis) (morganii) as the cause of diseases classified elsewhere; E11.65 Type 2 diabetes mellitus with hyperglycemia; L89.322 Pressure ulcer of left buttock, stage 2; L89.153 Pressure ulcer of sacral region, stage 3; L89.892 Pressure ulcer of other site, stage 2; L89.819 Pressure ulcer of head, unspecified stage; Z93.0 Tracheostomy status; Z74.01 Bed confinement status; Z79.4 Long term (current) use of insulin
CPT/HCPCS: 0241U-QW; 36415; 36430; 71045-TC-FY; 74018-TC-FY; 74177-TC; 80053; 81003; 82010; 82550; 82553; 82728; 82803; 82962; 83540; 83550; 83605; 83735; 83930; 84100; 84132; 84484; 85025; 85610; 85730; 86850; 86900; 86901; 86922; 87040; 87070; 87077; 87086; 87186; 87205; 93005; 93010; 94002; 99291; C9803-CS; P9058; Q9967; U0003; U0005

== ENCOUNTER 2022-09-14 13:24 | Inpatient (IN) | payer OTHER ==
[~2022-09-14 13:24] MED LIST: NOREPINEPHRINE BITARTRATE/D5W 8 MG/250 ML BAG IVPB SCH; SODIUM CHLORIDE 0.9% 500 ML INFUS.BAG IV ONE
[2022-09-14] MEDS ORDERED: SODIUM CHLORIDE 1,796 ML IV ONE (13:45)
[2022-09-14] MEDS ORDERED: ACETAMINOPHEN 1000 MG/100 ML BAG IVPB ONE (13:46)
[2022-09-14] MEDS ORDERED: CEFEPIME HCL/D5W 1 GM/50 ML BAG IVPB ONE (13:46)
[2022-09-14] MEDS ORDERED: VANCOMYCIN 1,000 MG in DEXTROSE 5%-WATER - 250 ML IVPB ONE (13:47)
[2022-09-14] MEDS ORDERED: NOREPINEPHRINE BITARTRATE/D5W 8 MG/250 ML BAG IVPB ONE ×2 (13:58→18:20)
[2022-09-14] MEDS: NOREPINEPHRINE BITARTRATE/D5W 8 MG/250 ML BAG IVPB SCH (14:00)
[2022-09-14] MEDS ORDERED: VANCOMYCIN/WATER FOR INJ (PEG) 1,000 MG/200 ML BAG IVPB ONE (14:25)
[2022-09-14] MEDS ORDERED: ACETAMINOPHEN INJECTION 100 ML IVPB ONE (14:26)
[2022-09-14] MEDS ORDERED: CEFEPIME 1 GM/100 ML BAG IVPB ONE (14:27)
[2022-09-14] MEDS ORDERED: VASOPRESSIN 20 UNITS/ML VIAL IV ONE (15:56)
[2022-09-14 16:11] LABS: HEMATOCRIT 32.4 % (32.4-45.2); HEMOGLOBIN 9.8 GM/dL (10.7-15.3); MCH 27.1 pg (25.7-33.7); MCHC 30.4 g/dl (32.0-36.0); MEAN CELL VOLUME 89.1 fl (80-96); MEAN PLT VOLUME 9.9 fl (7.5-11.1); PLATELET COUNT 93 10^3/uL (134-434); RBC 3.63 M/mm3 (3.60-5.2); WHITE BLOOD COUNT 13.9 K/mm3 (4.0-10.0)
[2022-09-14 16:12] LABS: VENOUS BASE EXCESS -8.8 mmol/L (-2-2); VENOUS PCO2 34.5 mmHg (38-52); VENOUS PH 7.302 (7.310-7.410)
[2022-09-14 16:13] LABS: INR 1.58 (0.83-1.09); PROTHROMBIN TIME (PATIENT) 18.2 SEC (9.7-13.0)
[2022-09-14 17:05] LABS: CHLORIDE 110 mmol/L (98-107); SODIUM 147 mmol/L (136-145)
[2022-09-14 17:07] LABS: CALCIUM 8.5 mg/dL (8.5-10.1); CO2 16 mmol/L (21-32)
[2022-09-14 17:08] LABS: ALBUMIN 2.7 g/dl (3.4-5.0)
[2022-09-14 17:12] LABS: BILIRUBIN,TOTAL 0.5 mg/dL (0.2-1); CREATININE 3.1 mg/dL (0.55-1.3); SGOT/AST 125 U/L (15-37); SGPT/ALT 98 U/L (13-61); TOT PROT 6.8 g/dl (6.4-8.2)
[2022-09-14 17:13] LABS: ALK PHOS 131 U/L (45-117)
[2022-09-14 17:28] LABS: ANION GAP 21 MMOL/L (8-16); BLOOD UREA NITROGEN 55.9 mg/dL (7-18); GLUCOSE,RANDOM 659 mg/dL (74-106)
[2022-09-14 17:39] LABS: ARTERIAL BLD GAS O2 SATURATION 99.5 % (95-98); ARTERIAL BLOOD GAS BASE EXCESS -12.4 mmol/L (-2-2); ARTERIAL BLOOD GAS PO2 233.3 mmHg (80-100); ARTERIAL BLOOD GAS pH 7.361 (7.350-7.450)
[2022-09-14] MEDS: VASOPRESSIN 40 UNITS in SODIUM CHLORIDE 100 ML IVPB SCH (18:05)
[2022-09-14 18:34] LABS: CHLORIDE 114 mmol/L (98-107); SODIUM 148 mmol/L (136-145)
[2022-09-14 18:37] LABS: ALBUMIN 2.2 g/dl (3.4-5.0); BLOOD UREA NITROGEN 50.4 mg/dL (7-18); CALCIUM 7.3 mg/dL (8.5-10.1); CO2 11 mmol/L (21-32)
[2022-09-14 18:39] LABS: CREATININE 2.6 mg/dL (0.55-1.3); PHOSPHOROUS 2.2 mg/dL (2.5-4.9); SGOT/AST 438 U/L (15-37); SGPT/ALT 360 U/L (13-61)
[2022-09-14] MEDS ORDERED: ACETAMINOPHEN 650 MG/20.3 ML ORAL SOLUTION (CUPS) GT PRN (18:41)
[2022-09-14 18:42] LABS: ALK PHOS 112 U/L (45-117); BILIRUBIN,TOTAL 0.6 mg/dL (0.2-1); TOT PROT 5.6 g/dl (6.4-8.2)
[2022-09-14 18:53] LABS: LACTIC ACID 8.3 mmol/L (0.4-2.0)
[2022-09-14 18:54] LABS: ANION GAP 23 MMOL/L (8-16); GLUCOSE,RANDOM 575 mg/dL (74-106)
[2022-09-14 19:11] LABS: EPI CELLS 1 /uL (0-25.1); HYALINE CASTS 3 /uL (0-3.1); PH,URINE 5.5 (5.0-8.0); URINE APPEARANCE CLOUDY; URINE BACTERIA 1670 /uL (0-1359); URINE BILIRUBIN NEGATIVE (NEGATIVE); URINE COLOR YELLOW; URINE GLUCOSE (UA) 3+ (NEGATIVE); URINE KETONE NEGATIVE (NEGATIVE); URINE LEUK ESTERASE TRACE (NEGATIVE); URINE NITRITE NEGATIVE (NEGATIVE); URINE PROTEIN 2+ (NEGATIVE); URINE RBC 16 /uL (0-23.9); URINE UROBILINOGEN 0.2 mg/dL (0.2-1.0); URINE WBC 518 /uL (0-25.8)
[2022-09-14] MEDS: KCL 10 MEQ IVPB 10 MEQ/100 ML INFUS.BAG IVPB SCH ×2 (20:30→22:16)
[2022-09-14] MEDS: MUPIROCIN 2% TOPICAL OINTMENT FOR DECOLONIZATION NS SCH (21:03)
[2022-09-14] MEDS: CHLORHEXIDINE GLUCONATE 4% CLEANSER FOR DECOLONIZATION TP SCH (21:03)
[2022-09-14 21:16] LABS: ANISOCYTOSIS 2+; MACROCYTOSIS 0; OVALOCYTE 1+; TEAR DROP CELLS 1+
[2022-09-14 21:21] LABS: URINE CRYSTALS FEW /hpf; YEAST NONE SEEN (NEGATIVE)
[2022-09-14 21:34] LABS: TOXIC GRANULATION 4+
[2022-09-14] MEDS ORDERED: INSULIN DRIP - PLEASE ORDER UNDER SETS NR ONE (22:05)
[2022-09-14 22:16] LABS: CHLORIDE 112 mmol/L (98-107); SODIUM 145 mmol/L (136-145)
[2022-09-14 22:19] LABS: ALBUMIN 2.3 g/dl (3.4-5.0); CALCIUM 7.4 mg/dL (8.5-10.1); CO2 9 mmol/L (21-32)
[2022-09-14] MEDS: HYDROCORTISONE SOD SUCCINATE 100 MG/2 ML VIAL IVPB SCH (22:20)
[2022-09-14 22:22] LABS: CREATININE 2.6 mg/dL (0.55-1.3); SGOT/AST 622 U/L (15-37); SGPT/ALT 520 U/L (13-61)
[2022-09-14 22:23] LABS: BILIRUBIN,TOTAL 0.9 mg/dL (0.2-1); TOT PROT 5.6 g/dl (6.4-8.2)
[2022-09-14 22:24] LABS: ALK PHOS 119 U/L (45-117)
[2022-09-14 22:28] LABS: ANION GAP 24 MMOL/L (8-16); GLUCOSE,RANDOM 630 mg/dL (74-106)
[2022-09-14] MEDS ORDERED: INSULIN REGULAR 100 UNITS in SODIUM CHLORIDE 99 ML IVPB SCH (22:30)
[2022-09-15] MEDS: KCL 10 MEQ IVPB 10 MEQ/100 ML INFUS.BAG IVPB SCH (00:10)
[2022-09-15] MEDS ORDERED: CALCIUM GLUCONATE 10% - 1,000 MG/10 ML VIAL IVPB ONE ×2 (00:43→03:45)
[2022-09-15] MEDS ORDERED: CEFEPIME 1 GM in DEXTROSE 5%-WATER 100 ML IVPB ONE (02:00)
[2022-09-15] MEDS: HYDROCORTISONE SOD SUCCINATE 100 MG/2 ML VIAL IVPB SCH ×3 (02:15→14:27)
[2022-09-15 02:46] LABS: AMYLASE 116 U/L (25-115); LIPASE 414 U/L (73-393)
[2022-09-15] MEDS ORDERED: INSULIN REGULAR HUMAN 100 UNITS/ML *VIAL IVPUSH ONE ×2 (03:12→05:04)
[2022-09-15 03:18] LABS: CHLORIDE 112 mmol/L (98-107); SODIUM 145 mmol/L (136-145)
[2022-09-15 03:20] LABS: ARTERIAL BLOOD GAS BASE EXCESS -20.3 mmol/L (-2-2); CALCIUM 7.2 mg/dL (8.5-10.1)
[2022-09-15 03:21] LABS: ALBUMIN 2.2 g/dl (3.4-5.0); BLOOD UREA NITROGEN 52.3 mg/dL (7-18); CO2 7 mmol/L (21-32)
[2022-09-15 03:23] LABS: BILIRUBIN,DIRECT 0.5 mg/dL (0.0-0.2)
[2022-09-15 03:24] LABS: CREATININE 2.8 mg/dL (0.55-1.3)
[2022-09-15 03:26] LABS: BILIRUBIN,TOTAL 0.8 mg/dL (0.2-1); TOT PROT 5.6 g/dl (6.4-8.2)
[2022-09-15 03:27] LABS: ALK PHOS 118 U/L (45-117); ARTERIAL BLOOD GAS pH 7.177 (7.350-7.450)
[2022-09-15] MEDS ORDERED: SODIUM BICARBONATE 8.4% 50 MEQ/50 ML DISP.SYRIN IVPUSH ONE ×2 (03:33→06:49)
[2022-09-15 03:35] LABS: LACTIC ACID 13.6 mmol/L (0.4-2.0)
[2022-09-15 03:37] LABS: ANION GAP 26 MMOL/L (8-16); GLUCOSE,RANDOM 563 mg/dL (74-106)
[2022-09-15] MEDS ORDERED: SODIUM BICARBONATE 8.4% - 50 ML ONE (03:41)
[2022-09-15] MEDS ORDERED: POTASSIUM CHLORIDE 20 MEQ PREMIX IVPB 100 ML IVPB ONE ×4 (03:41→12:30)
[2022-09-15] MEDS ORDERED: LACTATED RINGERS SOLUTION 1,000 ML/1,000 ML INFUS.BAG IV STA (03:48)
[2022-09-15] MEDS: SODIUM CHLORIDE 0.45% 1,000 ML IV SCH ×2 (05:09→09:46)
[2022-09-15] MEDS: NOREPINEPHRINE BITARTRATE/D5W 8 MG/250 ML BAG IVPB SCH (05:09)
[2022-09-15] MEDS ORDERED: CEFEPIME 1 GM in DEXTROSE 5%-WATER 100 ML IVPB SCH (06:00)
[2022-09-15 06:13] LABS: ARTERIAL BLD GAS O2 SATURATION 97.2 % (95-98); ARTERIAL BLOOD GAS BASE EXCESS -19.9 mmol/L (-2-2); ARTERIAL BLOOD GAS PO2 114.1 mmHg (80-100)
[2022-09-15 06:33] LABS: CHLORIDE 115 mmol/L (98-107); SODIUM 147 mmol/L (136-145)
[2022-09-15 06:35] LABS: BLOOD UREA NITROGEN 49.9 mg/dL (7-18); CO2 8 mmol/L (21-32); MAGNESIUM 1.9 mg/dL (1.8-2.4)
[2022-09-15 06:38] LABS: BASO % 0.3 % (0-2.0); CREATININE 2.5 mg/dL (0.55-1.3); HEMATOCRIT 29.6 % (32.4-45.2); HEMOGLOBIN 8.8 GM/dL (10.7-15.3); LYMPH % 19.6 % (8-40); MCH 26.9 pg (25.7-33.7); MCHC 29.8 g/dl (32.0-36.0); MEAN CELL VOLUME 90.3 fl (80-96); MEAN PLT VOLUME 9.5 fl (7.5-11.1); MONO % 2.6 % (3.8-10.2); NEUT % 77.5 % (42.8-82.8); RBC 3.28 M/mm3 (3.60-5.2); SGPT/ALT 527 U/L (13-61); WHITE BLOOD COUNT 5.6 K/mm3 (4.0-10.0)
[2022-09-15 06:39] LABS: BILIRUBIN,TOTAL 0.8 mg/dL (0.2-1); TOT PROT 5.3 g/dl (6.4-8.2)
[2022-09-15 06:41] LABS: ALK PHOS 108 U/L (45-117)
[2022-09-15 06:47] LABS: ARTERIAL BLOOD GAS pH 7.179 (7.350-7.450)
[2022-09-15 06:49] LABS: ANION GAP 24 MMOL/L (8-16); CALCIUM 8.3 mg/dL (8.5-10.1); GLUCOSE,RANDOM 424 mg/dL (74-106)
[2022-09-15 06:51] LABS: SGOT/AST > 1000 U/L (15-37)
[2022-09-15] MEDS ORDERED: POTASSIUM CHLORIDE ORAL LIQUID 20 MEQ/15 ML GT SCH (08:30)
[2022-09-15 09:27] LABS: ANISOCYTOSIS 0; HELMET CELLS 0; HOWELL-JOLLY BODIES 0; MACROCYTOSIS 0; OVALOCYTE 0; ROULEAU 0; SICKELED CELLS 0; TARGET CELLS 0; TEAR DROP CELLS 0; TOXIC GRANULATION 0
[2022-09-15] MEDS ORDERED: POTASSIUM CHLORIDE 10 MEQ PREMIX IVPB (POTASSIUM RIDER) IVPB ONE (09:30)
[2022-09-15] MEDS ORDERED: SODIUM BICARBONATE 8.4% 50 MEQ/50 ML VIAL IVPUSH ONE (09:35)
[2022-09-15] MEDS: MUPIROCIN 2% TOPICAL OINTMENT FOR DECOLONIZATION NS SCH (09:45)
[2022-09-15] MEDS: levETIRAcetam 500 MG/5 ML INJECTION VIAL IVPB SCH (09:46)
[2022-09-15 09:58] LABS: PLATELET ESTIMATE DECREASED
[2022-09-15 10:00] LABS: PLATELET COUNT 30 10^3/uL (134-434)
[2022-09-15] MEDS ORDERED: VANCOMYCIN 1 GM in D5W (PRE-DOCKED) 1,000 MG/250 ML IVPB SCH (10:00)
[2022-09-15] MEDS ORDERED: POTASSIUM CHLORIDE 20 MEQ PREMIX IVPB 100 ML IVPB SCH (10:00)
[2022-09-15] MEDS ORDERED: DAPTOMYCIN 400 MG in SODIUM CHLORIDE 50 ML IVPB ONE ×2 (10:30→12:30)
[2022-09-15] MEDS: MEROPENEM 500 MG in DEXTROSE 5%-WATER 100 ML IVPB SCH (13:16)
[2022-09-15 13:39] LABS: ARTERIAL BLD GAS O2 SATURATION 99.4 % (95-98); ARTERIAL BLOOD GAS BASE EXCESS -14.6 mmol/L (-2-2); ARTERIAL BLOOD GAS PO2 209.4 mmHg (80-100); ARTERIAL BLOOD GAS pH 7.326 (7.350-7.450)
[2022-09-15 13:59] LABS: CHLORIDE 113 mmol/L (98-107); SODIUM 146 mmol/L (136-145)
[2022-09-15 14:00] LABS: BLOOD UREA NITROGEN 46.4 mg/dL (7-18); CALCIUM 7.8 mg/dL (8.5-10.1); CO2 9 mmol/L (21-32); GLUCOSE,RANDOM 204 mg/dL (74-106)
[2022-09-15 14:32] LABS: ANION GAP 23 MMOL/L (8-16); CREATININE 2.2 mg/dL (0.55-1.3)
[2022-09-15] MEDS ORDERED: SODIUM CHLORIDE 0.45% 1,000 ML IV SCH (15:49)
[2022-09-15] MEDS: VASOPRESSIN 40 UNITS in SODIUM CHLORIDE 100 ML IVPB SCH (16:26)
[2022-09-15] MEDS: POTASSIUM CHLORIDE 20 MEQ PREMIX IVPB 100 ML IVPB SCH ×2 (16:27→18:16)
[2022-09-15 17:08] LABS: LACTIC ACID 12.5 mmol/L (0.4-2.0)
[2022-09-16] MEDS: HYDROCORTISONE SOD SUCCINATE 100 MG/2 ML VIAL IVPB SCH ×5 (00:09→21:58)
[2022-09-16] MEDS: MUPIROCIN 2% TOPICAL OINTMENT FOR DECOLONIZATION NS SCH ×3 (00:09→21:59)
[2022-09-16] MEDS: levETIRAcetam 500 MG/5 ML INJECTION VIAL IVPB SCH ×3 (00:10→21:58)
[2022-09-16] MEDS: CHLORHEXIDINE GLUCONATE 4% CLEANSER FOR DECOLONIZATION TP SCH ×2 (00:10→21:59)
[2022-09-16] MEDS: MEROPENEM 500 MG in DEXTROSE 5%-WATER 100 ML IVPB SCH ×3 (02:24→18:44)
[2022-09-16 03:36] LABS: CALCIUM 8.3 mg/dL (8.5-10.1)
[2022-09-16 03:37] LABS: BLOOD UREA NITROGEN 41.4 mg/dL (7-18)
[2022-09-16 03:40] LABS: PHOSPHOROUS 4.4 mg/dL (2.5-4.9)
[2022-09-16] MEDS ORDERED: DEXTROSE 50%-WATER 25 GM/50 ML DISP.SYRIN IVPUSH PRN (04:24)
[2022-09-16] MEDS ORDERED: INSULIN REGULAR 100 UNITS in SODIUM CHLORIDE 99 ML IVPB SCH (04:30)
[2022-09-16] MEDS: NOREPINEPHRINE BITARTRATE/D5W 8 MG/250 ML BAG IVPB SCH (05:53)
[2022-09-16] MEDS ORDERED: SODIUM CHLORIDE 0.45%/POT 20 MEQ/1,000 ML INFUS.BAG IV SCH (07:30)
[2022-09-16 07:31] LABS: HEMATOCRIT 24.5 % (32.4-45.2); HEMOGLOBIN 7.7 GM/dL (10.7-15.3); MCH 27.6 pg (25.7-33.7); MCHC 31.5 g/dl (32.0-36.0); MEAN CELL VOLUME 87.7 fl (80-96); MEAN PLT VOLUME 10.8 fl (7.5-11.1); RDW 16.3 % (11.6-15.6); WHITE BLOOD COUNT 13.1 K/mm3 (4.0-10.0)
[2022-09-16 07:51] LABS: CHLORIDE 111 mmol/L (98-107); SODIUM 145 mmol/L (136-145)
[2022-09-16 07:55] LABS: PLATELET COUNT 12 10^3/uL (134-434)
[2022-09-16 07:59] LABS: ALBUMIN 2.1 g/dl (3.4-5.0); ANION GAP 19 MMOL/L (8-16); BLOOD UREA NITROGEN 39.4 mg/dL (7-18); CO2 15 mmol/L (21-32); GLUCOSE,RANDOM 147 mg/dL (74-106); MAGNESIUM 1.9 mg/dL (1.8-2.4)
[2022-09-16 08:02] LABS: BILIRUBIN,DIRECT 0.7 mg/dL (0.0-0.2); SGOT/AST 488 U/L (15-37); SGPT/ALT 550 U/L (13-61)
[2022-09-16 08:03] LABS: BILIRUBIN,TOTAL 1.5 mg/dL (0.2-1)
[2022-09-16 08:04] LABS: ALK PHOS 110 U/L (45-117); TOT PROT 5.2 g/dl (6.4-8.2)
[2022-09-16] MEDS: NOREPINEPHRINE BITARTRATE 16,000 MCG in DEXTROSE 5%-WATER - 500 ML IVPB SCH (08:05)
[2022-09-16 08:09] LABS: CREATININE 1.8 mg/dL (0.55-1.3)
[2022-09-16 08:58] LABS: ANISOCYTOSIS 0; MACROCYTOSIS 0; TOXIC GRANULATION 1+
[2022-09-16 09:03] LABS: ARTERIAL BLD GAS O2 SATURATION 99.3 % (95-98); ARTERIAL BLOOD GAS BASE EXCESS -12.3 mmol/L (-2-2); ARTERIAL BLOOD GAS PO2 184.2 mmHg (80-100); ARTERIAL BLOOD GAS pH 7.363 (7.350-7.450)
[2022-09-16 09:35] LABS: LACTIC ACID 11.5 mmol/L (0.4-2.0)
[2022-09-16] MEDS ORDERED: DEXTROSE 5%-0.45% SALINE 1,000 ML IV SCH (10:30)
[2022-09-16 11:58] LABS: RETICULOCYTES 1.41 % (0.5-1.5)
[2022-09-16 12:01] LABS: ACTIVATED PTT 38.2 SECONDS (25.2-36.5); INR 3.15 (0.83-1.09); PROTHROMBIN TIME (PATIENT) 36.6 SEC (9.7-13.0)
[2022-09-16 12:11] LABS: LDH 475 U/L (84-246)
[2022-09-16] MEDS ORDERED: DAPTOMYCIN 400 MG in SODIUM CHLORIDE 50 ML IVPB ONE (13:00)
[2022-09-16] MEDS: VASOPRESSIN 40 UNITS in SODIUM CHLORIDE 100 ML IVPB SCH (15:46)
[2022-09-16 19:37] LABS: HEMATOCRIT 22.1 % (32.4-45.2); MCH 26.7 pg (25.7-33.7); MCHC 30.7 g/dl (32.0-36.0); MEAN CELL VOLUME 87.1 fl (80-96); MEAN PLT VOLUME 10.3 fl (7.5-11.1); RBC 2.54 M/mm3 (3.60-5.2); RDW 16.1 % (11.6-15.6); WHITE BLOOD COUNT 20.8 K/mm3 (4.0-10.0)
[2022-09-16 19:47] LABS: PLATELET COUNT 13 10^3/uL (134-434)
[2022-09-16 19:48] LABS: HEMOGLOBIN 6.8 GM/dL (10.7-15.3)
[2022-09-17] MEDS: MEROPENEM 500 MG in DEXTROSE 5%-WATER 100 ML IVPB SCH ×4 (02:34→17:29)
[2022-09-17] MEDS: HYDROCORTISONE SOD SUCCINATE 100 MG/2 ML VIAL IVPB SCH ×4 (03:34→22:15)
[2022-09-17 06:24] LABS: ARTERIAL BLD GAS O2 SATURATION 99.3 % (95-98); ARTERIAL BLOOD GAS BASE EXCESS -11.1 mmol/L (-2-2); ARTERIAL BLOOD GAS PO2 184.8 mmHg (80-100); ARTERIAL BLOOD GAS pH 7.382 (7.350-7.450)
[2022-09-17 06:26] LABS: VENT MODE A/C; VENT RATE 14
[2022-09-17 08:35] LABS: HEMATOCRIT 24.5 % (32.4-45.2); MCH 28.3 pg (25.7-33.7); MCHC 32.6 g/dl (32.0-36.0); MEAN CELL VOLUME 86.8 fl (80-96); MEAN PLT VOLUME 10.3 fl (7.5-11.1); RBC 2.83 M/mm3 (3.60-5.2); RDW 15.7 % (11.6-15.6); WHITE BLOOD COUNT 13.8 K/mm3 (4.0-10.0)
[2022-09-17 08:52] LABS: CHLORIDE 105 mmol/L (98-107); SODIUM 139 mmol/L (136-145)
[2022-09-17 08:55] LABS: PLATELET COUNT 11 10^3/uL (134-434)
[2022-09-17 09:00] LABS: ALBUMIN 2.1 g/dl (3.4-5.0); BLOOD UREA NITROGEN 41.8 mg/dL (7-18); CREATININE 1.6 mg/dL (0.55-1.3); SGOT/AST 396 U/L (15-37)
[2022-09-17 09:02] LABS: BILIRUBIN,TOTAL 2.4 mg/dL (0.2-1); CALCIUM 7.9 mg/dL (8.5-10.1); TOT PROT 4.9 g/dl (6.4-8.2)
[2022-09-17 09:03] LABS: ALK PHOS 127 U/L (45-117); ANION GAP 21 MMOL/L (8-16); CO2 13 mmol/L (21-32); MAGNESIUM 1.9 mg/dL (1.8-2.4); PHOSPHOROUS 3.9 mg/dL (2.5-4.9); SGPT/ALT 614 U/L (13-61)
[2022-09-17 09:09] LABS: GLUCOSE,RANDOM 526 mg/dL (74-106)
[2022-09-17 09:24] LABS: ANISOCYTOSIS 2+; MACROCYTOSIS 0; OVALOCYTE 1+
[2022-09-17] MEDS ORDERED: INSULIN REGULAR HUMAN 100 UNITS/ML *VIAL* (FOR IVP) IVPUSH ONE (10:00)
[2022-09-17] MEDS: levETIRAcetam 500 MG/5 ML INJECTION VIAL IVPB SCH ×2 (10:07→22:10)
[2022-09-17] MEDS: MUPIROCIN 2% TOPICAL OINTMENT FOR DECOLONIZATION NS SCH ×2 (10:10→22:16)
[2022-09-17] MEDS ORDERED: INSULIN REGULAR 100 UNITS in SODIUM CHLORIDE 99 ML IVPB SCH (10:30)
[2022-09-17] MEDS: LACTATED RINGERS SOLUTION 1,000 ML/1,000 ML INFUS.BAG IV SCH (11:24)
[2022-09-17] MEDS ORDERED: DAPTOMYCIN 400 MG in SODIUM CHLORIDE 50 ML IVPB ONE (14:00)
[2022-09-17] MEDS: NOREPINEPHRINE BITARTRATE 16,000 MCG in DEXTROSE 5%-WATER - 500 ML IVPB SCH (18:33)
[2022-09-17] MEDS: CHLORHEXIDINE GLUCONATE 4% CLEANSER FOR DECOLONIZATION TP SCH (22:16)
[2022-09-18] MEDS: MEROPENEM 500 MG in DEXTROSE 5%-WATER 100 ML IVPB SCH ×3 (01:03→18:21)
[2022-09-18] MEDS: LACTATED RINGERS SOLUTION 1,000 ML/1,000 ML INFUS.BAG IV SCH (01:15)
[2022-09-18] MEDS: HYDROCORTISONE SOD SUCCINATE 100 MG/2 ML VIAL IVPB SCH ×3 (06:20→15:39)
[2022-09-18 07:49] LABS: HEMATOCRIT 24.7 % (32.4-45.2); HEMOGLOBIN 8.1 GM/dL (10.7-15.3); MCH 27.6 pg (25.7-33.7); MCHC 32.7 g/dl (32.0-36.0); MEAN CELL VOLUME 84.5 fl (80-96); MEAN PLT VOLUME 9.7 fl (7.5-11.1); RBC 2.93 M/mm3 (3.60-5.2); RDW 15.7 % (11.6-15.6); WHITE BLOOD COUNT 9.9 K/mm3 (4.0-10.0)
[2022-09-18 07:52] LABS: CHLORIDE 120 mmol/L (98-107); SODIUM 151 mmol/L (136-145)
[2022-09-18 08:03] LABS: ALBUMIN 1.9 g/dl (3.4-5.0); CO2 19 mmol/L (21-32)
[2022-09-18 08:04] LABS: GLUCOSE,RANDOM 168 mg/dL (74-106); MAGNESIUM 1.9 mg/dL (1.8-2.4)
[2022-09-18 08:06] LABS: SGPT/ALT 624 U/L (13-61)
[2022-09-18 08:07] LABS: PHOSPHOROUS 2.1 mg/dL (2.5-4.9); SGOT/AST 327 U/L (15-37)
[2022-09-18 08:08] LABS: BILIRUBIN,TOTAL 2.7 mg/dL (0.2-1); TOT PROT 4.5 g/dl (6.4-8.2)
[2022-09-18 08:09] LABS: ALK PHOS 132 U/L (45-117)
[2022-09-18 08:32] LABS: ANION GAP 12 MMOL/L (8-16)
[2022-09-18 09:05] LABS: PLATELET COUNT 11 10^3/uL (134-434)
[2022-09-18] MEDS: levETIRAcetam 500 MG/5 ML INJECTION VIAL IVPB SCH ×2 (09:39→21:59)
[2022-09-18 10:07] LABS: ANISOCYTOSIS 0; HELMET CELLS 0; HOWELL-JOLLY BODIES 0; MACROCYTOSIS 0; OVALOCYTE 0; ROULEAU 0; SICKELED CELLS 0; TARGET CELLS 0; TEAR DROP CELLS 0; TOXIC GRANULATION 0
[2022-09-18] MEDS ORDERED: POTASSIUM PHOSPHATE 15 MM in DEXTROSE 5%-WATER - 250 ML IVPB ONE (11:00)
[2022-09-18] MEDS ORDERED: POTASSIUM PHOSPHATE 30 MM in DEXTROSE 5%-WATER - 500 ML IVPB ONE (11:00)
[2022-09-18] MEDS: MUPIROCIN 2% TOPICAL OINTMENT FOR DECOLONIZATION NS SCH ×2 (11:59→21:58)
[2022-09-18] MEDS: SODIUM CHLORIDE 0.45%/POT 20 MEQ/1,000 ML INFUS.BAG IV SCH (14:09)
[2022-09-18] MEDS: VANCOMYCIN/WATER FOR INJ (PEG) 1,000 MG/200 ML BAG IVPB SCH (18:21)
[2022-09-18 20:00] LABS: BLOOD UREA NITROGEN 40.3 mg/dL (7-18); CALCIUM 7.9 mg/dL (8.5-10.1)
[2022-09-18] MEDS: CHLORHEXIDINE GLUCONATE 4% CLEANSER FOR DECOLONIZATION TP SCH (21:59)
[2022-09-19] MEDS: MEROPENEM 500 MG in DEXTROSE 5%-WATER 100 ML IVPB SCH ×3 (02:22→19:13)
[2022-09-19] MEDS: HYDROCORTISONE SOD SUCCINATE 100 MG/2 ML VIAL IVPB SCH ×3 (04:05→23:15)
[2022-09-19] MEDS: VANCOMYCIN/WATER FOR INJ (PEG) 1,000 MG/200 ML BAG IVPB SCH ×2 (05:10→19:13)
[2022-09-19 08:04] LABS: HEMATOCRIT 22.8 % (32.4-45.2); HEMOGLOBIN 7.6 GM/dL (10.7-15.3); MCH 28.5 pg (25.7-33.7); MCHC 33.3 g/dl (32.0-36.0); MEAN CELL VOLUME 85.8 fl (80-96); MEAN PLT VOLUME 10.1 fl (7.5-11.1); RBC 2.66 M/mm3 (3.60-5.2); RDW 15.7 % (11.6-15.6); WHITE BLOOD COUNT 5.6 K/mm3 (4.0-10.0)
[2022-09-19 08:24] LABS: CALCIUM 7.4 mg/dL (8.5-10.1)
[2022-09-19 08:25] LABS: ALBUMIN 1.8 g/dl (3.4-5.0); BLOOD UREA NITROGEN 40.8 mg/dL (7-18); MAGNESIUM 1.8 mg/dL (1.8-2.4)
[2022-09-19 08:28] LABS: CREATININE 0.9 mg/dL (0.55-1.3); PHOSPHOROUS 3.5 mg/dL (2.5-4.9)
[2022-09-19 08:29] LABS: BILIRUBIN,TOTAL 2.4 mg/dL (0.2-1); TOT PROT 4.2 g/dl (6.4-8.2)
[2022-09-19 09:12] LABS: PLATELET COUNT 9 10^3/uL (134-434)
[2022-09-19] MEDS: levETIRAcetam 500 MG/5 ML INJECTION VIAL IVPB SCH ×2 (09:20→22:08)
[2022-09-19 10:02] LABS: ANISOCYTOSIS 1+; MACROCYTOSIS 0; OVALOCYTE 2+; PLATELET ESTIMATE DECREASED
[2022-09-19] MEDS: SODIUM CHLORIDE 0.45%/POT 20 MEQ/1,000 ML INFUS.BAG IV SCH (12:18)
[2022-09-19] MEDS: MUPIROCIN 2% TOPICAL OINTMENT FOR DECOLONIZATION NS SCH (12:18)
[2022-09-19] MEDS ORDERED: INSULIN SLIDING SCALE (NOVOLOG) 1 VIAL SQ SCH (16:30)
[2022-09-19] MEDS: INSULIN SLIDING SCALE (NOVOLOG) 1 VIAL SQ SCH ×2 (16:37→22:13)
[2022-09-19 18:27] LABS: INR 1.38 (0.83-1.09); PROTHROMBIN TIME (PATIENT) 15.9 SEC (9.7-13.0)
[2022-09-19 18:30] LABS: ACTIVATED PTT 28.6 SECONDS (25.2-36.5)
[2022-09-19] MEDS: CHLORHEXIDINE GLUCONATE 4% CLEANSER FOR DECOLONIZATION TP SCH (22:08)
[2022-09-20 01:59] LABS: HEMOGLOBIN 7.3 GM/dL (10.7-15.3); MCH 28.2 pg (25.7-33.7); MEAN CELL VOLUME 85.6 fl (80-96); MEAN PLT VOLUME 7.6 fl (7.5-11.1); PLATELET COUNT 47 10^3/uL (134-434); RBC 2.57 M/mm3 (3.60-5.2); RDW 15.6 % (11.6-15.6); WHITE BLOOD COUNT 4.1 K/mm3 (4.0-10.0)
[2022-09-20] MEDS: MEROPENEM 500 MG in DEXTROSE 5%-WATER 100 ML IVPB SCH ×3 (02:15→18:03)
[2022-09-20] MEDS: VANCOMYCIN/WATER FOR INJ (PEG) 1,000 MG/200 ML BAG IVPB SCH ×2 (05:53→18:02)
[2022-09-20] MEDS: INSULIN SLIDING SCALE (NOVOLOG) 1 VIAL SQ SCH ×4 (07:01→22:11)
[2022-09-20 07:41] LABS: BASO % 0.2 % (0-2.0); HEMATOCRIT 23.6 % (32.4-45.2); HEMOGLOBIN 7.7 GM/dL (10.7-15.3); LYMPH % 4.3 % (8-40); MCHC 32.4 g/dl (32.0-36.0); MEAN CELL VOLUME 86.6 fl (80-96); MEAN PLT VOLUME 8.2 fl (7.5-11.1); MONO % 8.5 % (3.8-10.2); PLATELET COUNT 47 10^3/uL (134-434); RBC 2.73 M/mm3 (3.60-5.2); WHITE BLOOD COUNT 3.8 K/mm3 (4.0-10.0)
[2022-09-20 07:48] LABS: BLOOD UREA NITROGEN 36.1 mg/dL (7-18); CALCIUM 7.5 mg/dL (8.5-10.1)
[2022-09-20 07:49] LABS: ALBUMIN 1.9 g/dl (3.4-5.0); MAGNESIUM 1.7 mg/dL (1.8-2.4)
[2022-09-20 07:51] LABS: PHOSPHOROUS 2.6 mg/dL (2.5-4.9)
[2022-09-20 07:52] LABS: CREATININE 0.7 mg/dL (0.55-1.3)
[2022-09-20 07:53] LABS: BILIRUBIN,TOTAL 1.7 mg/dL (0.2-1); TOT PROT 4.8 g/dl (6.4-8.2)
[2022-09-20] MEDS: levETIRAcetam 500 MG/5 ML INJECTION VIAL IVPB SCH ×2 (09:32→22:11)
[2022-09-20] MEDS: SODIUM CHLORIDE 0.45%/POT 20 MEQ/1,000 ML INFUS.BAG IV SCH (11:39)
[2022-09-20] MEDS ORDERED: MAGNESIUM SULF 50% (8.12 MEQ/2 ML-1 GM VIAL) IVPB ONE (13:22)
[2022-09-20] MEDS ORDERED: KCL 10 MEQ IVPB 10 MEQ/100 ML INFUS.BAG IVPB SCH (13:30)
[2022-09-20] MEDS: CHLORHEXIDINE GLUCONATE 4% CLEANSER FOR DECOLONIZATION TP SCH (22:11)
[2022-09-21] MEDS: MEROPENEM 500 MG in DEXTROSE 5%-WATER 100 ML IVPB SCH ×3 (01:18→17:16)
[2022-09-21] MEDS: VANCOMYCIN/WATER FOR INJ (PEG) 1,000 MG/200 ML BAG IVPB SCH (05:10)
[2022-09-21] MEDS: INSULIN SLIDING SCALE (NOVOLOG) 1 VIAL SQ SCH ×4 (06:35→22:06)
[2022-09-21] MEDS: levETIRAcetam 500 MG/5 ML INJECTION VIAL IVPB SCH ×2 (10:39→21:55)
[2022-09-21] MEDS: SODIUM CHLORIDE 0.45%/POT 20 MEQ/1,000 ML INFUS.BAG IV SCH (11:15)
[2022-09-21 14:34] VITALS: BMI 32.2
[2022-09-21] MEDS ORDERED: MIDAZOLAM HCL 2 MG/2 ML SINGLE DOSE VIAL IVPUSH ONE (16:51)
[2022-09-21] MEDS: CHLORHEXIDINE GLUCONATE 4% CLEANSER FOR DECOLONIZATION TP SCH (22:03)
[2022-09-22] MEDS ORDERED: ACETAMINOPHEN 650 MG/20.3 ML ORAL SOLUTION (CUPS) GT PRN (01:43)
[2022-09-22] MEDS ORDERED: DEXTROSE 50%-WATER 25 GM/50 ML DISP.SYRIN IVPUSH PRN (01:43)
[2022-09-22] MEDS: MEROPENEM 500 MG in DEXTROSE 5%-WATER 100 ML IVPB SCH ×3 (01:48→18:43)
[2022-09-22] MEDS: SODIUM CHLORIDE 0.45%/POT 20 MEQ/1,000 ML INFUS.BAG IV SCH ×2 (03:56→12:10)
[2022-09-22] MEDS: INSULIN SLIDING SCALE (NOVOLOG) 1 VIAL SQ SCH ×4 (06:17→21:06)
[2022-09-22 08:47] LABS: HEMATOCRIT 20.6 % (32.4-45.2); MCH 28.5 pg (25.7-33.7); MCHC 32.9 g/dl (32.0-36.0); MEAN CELL VOLUME 86.6 fl (80-96); MEAN PLT VOLUME 9.4 fl (7.5-11.1); PLATELET COUNT 37 10^3/uL (134-434); RBC 2.38 M/mm3 (3.60-5.2); RDW 15.7 % (11.6-15.6); WHITE BLOOD COUNT 3.3 K/mm3 (4.0-10.0)
[2022-09-22 09:33] LABS: HEMOGLOBIN 6.8 GM/dL (10.7-15.3)
[2022-09-22 10:04] LABS: ANISOCYTOSIS 1+; MACROCYTOSIS 1+
[2022-09-22] MEDS ORDERED: FUROSEMIDE 40 MG/4 ML INJECTABLE VIAL IVPUSH ONE ×2 (10:42→23:15)
[2022-09-22] MEDS: levETIRAcetam 500 MG/5 ML INJECTION VIAL IVPB SCH ×2 (11:21→21:05)
[2022-09-22 12:57] LABS: BLOOD UREA NITROGEN 13.8 mg/dL (7-18); CALCIUM 7.3 mg/dL (8.5-10.1)
[2022-09-22 12:58] LABS: ALBUMIN 1.6 g/dl (3.4-5.0)
[2022-09-22 13:01] LABS: CREATININE 0.4 mg/dL (0.55-1.3)
[2022-09-22 13:02] LABS: TOT PROT 3.8 g/dl (6.4-8.2)
[2022-09-22 13:04] LABS: BILIRUBIN,TOTAL 0.9 mg/dL (0.2-1)
[2022-09-22] MEDS ORDERED: CHLORHEXIDINE GLUCONATE 4% CLEANSER FOR DECOLONIZATION TP SCH (22:00)
[2022-09-23] MEDS: MEROPENEM 500 MG in DEXTROSE 5%-WATER 100 ML IVPB SCH ×3 (01:48→17:54)
[2022-09-23] MEDS: SODIUM CHLORIDE 0.45%/POT 20 MEQ/1,000 ML INFUS.BAG IV SCH (01:48)
[2022-09-23] MEDS: INSULIN SLIDING SCALE (NOVOLOG) 1 VIAL SQ SCH ×4 (06:18→22:50)
[2022-09-23] MEDS: levETIRAcetam 500 MG/5 ML INJECTION VIAL IVPB SCH ×2 (09:51→22:50)
[2022-09-23 10:22] LABS: BASO % 0.2 % (0-2.0); EOS % 0.1 % (0-4.5); HEMATOCRIT 38.9 % (32.4-45.2); HEMOGLOBIN 13.2 GM/dL (10.7-15.3); LYMPH % 4.6 % (8-40); MCH 29.2 pg (25.7-33.7); MEAN CELL VOLUME 85.9 fl (80-96); MEAN PLT VOLUME 9.6 fl (7.5-11.1); MONO % 5.2 % (3.8-10.2); NEUT % 89.9 % (42.8-82.8); PLATELET COUNT 61 10^3/uL (134-434); RBC 4.52 M/mm3 (3.60-5.2); RDW 14.2 % (11.6-15.6); WHITE BLOOD COUNT 9.5 K/mm3 (4.0-10.0)
[2022-09-23] MEDS: PANTOPRAZOLE SODIUM 40 MG VIAL IVPUSH SCH (10:30)
[2022-09-23 10:46] LABS: CALCIUM 7.6 mg/dL (8.5-10.1)
[2022-09-23 10:47] LABS: BLOOD UREA NITROGEN 12.1 mg/dL (7-18)
[2022-09-23 10:50] LABS: CREATININE 0.4 mg/dL (0.55-1.3)
[2022-09-23 10:51] LABS: BILIRUBIN,TOTAL 1.4 mg/dL (0.2-1)
[2022-09-23] MEDS: METOPROLOL TARTRATE 25 MG TABLET (FP) PEG SCH ×2 (13:06→22:50)
[2022-09-24] MEDS: MEROPENEM 500 MG in DEXTROSE 5%-WATER 100 ML IVPB SCH ×3 (01:27→18:07)
[2022-09-24] MEDS: INSULIN SLIDING SCALE (NOVOLOG) 1 VIAL SQ SCH ×4 (06:29→22:19)
[2022-09-24] MEDS: PANTOPRAZOLE SODIUM 40 MG VIAL IVPUSH SCH (10:13)
[2022-09-24] MEDS: METOPROLOL TARTRATE 25 MG TABLET (FP) PEG SCH ×2 (10:13→21:06)
[2022-09-24] MEDS: levETIRAcetam 500 MG/5 ML INJECTION VIAL IVPB SCH ×2 (11:00→21:06)
[2022-09-24] MEDS ORDERED: VANCOMYCIN/WATER FOR INJ (PEG) 1,000 MG/200 ML BAG IVPB ONE (13:43)
[2022-09-24] MEDS: VANCOMYCIN/WATER FOR INJ (PEG) 1,000 MG/200 ML BAG IVPB SCH (15:41)
[2022-09-24 16:44] LABS: BASO % 0.1 % (0-2.0); EOS % 0.1 % (0-4.5); HEMATOCRIT 35.9 % (32.4-45.2); HEMOGLOBIN 11.9 GM/dL (10.7-15.3); MCH 28.8 pg (25.7-33.7); MCHC 33.2 g/dl (32.0-36.0); MEAN CELL VOLUME 86.8 fl (80-96); MONO % 8.7 % (3.8-10.2); NEUT % 86.1 % (42.8-82.8); PLATELET COUNT 64 10^3/uL (134-434); RBC 4.14 M/mm3 (3.60-5.2); WHITE BLOOD COUNT 7.7 K/mm3 (4.0-10.0)
[2022-09-24 16:46] LABS: ALBUMIN 1.8 g/dl (3.4-5.0); CALCIUM 7.4 mg/dL (8.5-10.1)
[2022-09-24 16:49] LABS: CREATININE 0.4 mg/dL (0.55-1.3)
[2022-09-24 16:51] LABS: TOT PROT 4.7 g/dl (6.4-8.2)
[2022-09-25] MEDS: MEROPENEM 500 MG in DEXTROSE 5%-WATER 100 ML IVPB SCH ×2 (02:03→10:40)
[2022-09-25 06:26] LABS: EOS % 0.1 % (0-4.5); HEMATOCRIT 32.9 % (32.4-45.2); HEMOGLOBIN 10.9 GM/dL (10.7-15.3); LYMPH % 9.5 % (8-40); MCH 28.8 pg (25.7-33.7); MCHC 33.2 g/dl (32.0-36.0); MEAN CELL VOLUME 86.7 fl (80-96); MEAN PLT VOLUME 9.4 fl (7.5-11.1); MONO % 11.1 % (3.8-10.2); NEUT % 79.3 % (42.8-82.8); PLATELET COUNT 62 10^3/uL (134-434); RDW 14.9 % (11.6-15.6); WHITE BLOOD COUNT 5.6 K/mm3 (4.0-10.0)
[2022-09-25] MEDS: INSULIN SLIDING SCALE (NOVOLOG) 1 VIAL SQ SCH ×4 (06:27→21:25)
[2022-09-25 07:30] LABS: ALBUMIN 1.6 g/dl (3.4-5.0); BILIRUBIN,TOTAL 0.9 mg/dL (0.2-1); BLOOD UREA NITROGEN 14.4 mg/dL (7-18); CALCIUM 7.4 mg/dL (8.5-10.1); CREATININE 0.4 mg/dL (0.55-1.3); TOT PROT 4.4 g/dl (6.4-8.2)
[2022-09-25] MEDS: PANTOPRAZOLE SODIUM 40 MG VIAL IVPUSH SCH (10:41)
[2022-09-25] MEDS: levETIRAcetam 500 MG/5 ML INJECTION VIAL IVPB SCH ×2 (12:32→21:00)
[2022-09-25] MEDS: METOPROLOL TARTRATE 25 MG TABLET (FP) PEG SCH ×2 (12:33→21:00)
[2022-09-25] MEDS: VANCOMYCIN/WATER FOR INJ (PEG) 1,000 MG/200 ML BAG IVPB SCH (13:59)
[2022-09-25] MEDS: ASCORBIC ACID 500 MG TABLET (FP) PO SCH (21:00)
[2022-09-26] MEDS: INSULIN SLIDING SCALE (NOVOLOG) 1 VIAL SQ SCH ×3 (06:16→16:08)
[2022-09-26] MEDS: PANTOPRAZOLE SODIUM 40 MG VIAL IVPUSH SCH (09:27)
[2022-09-26] MEDS: levETIRAcetam 500 MG/5 ML INJECTION VIAL IVPB SCH (09:29)
[2022-09-26] MEDS: MULTIVITAMINS (DAILY MVI) TABLET (FP) PO SCH (11:05)
[2022-09-26] MEDS: ZINC SULFATE 220 MG CAPSULE (FP) PO SCH (11:06)
[2022-09-26] MEDS: METOPROLOL TARTRATE 25 MG TABLET (FP) PEG SCH (11:06)
[2022-09-26] MEDS: ASCORBIC ACID 500 MG TABLET (FP) PO SCH (11:06)
[2022-09-27] MEDS: INSULIN SLIDING SCALE (NOVOLOG) 1 VIAL SQ SCH ×5 (00:02→21:18)
[2022-09-27] MEDS: METOPROLOL TARTRATE 25 MG TABLET (FP) PEG SCH ×3 (00:02→21:03)
[2022-09-27] MEDS: ASCORBIC ACID 500 MG TABLET (FP) PO SCH ×3 (00:02→21:03)
[2022-09-27] MEDS: levETIRAcetam 500 MG/5 ML INJECTION VIAL IVPB SCH ×2 (00:02→12:01)
[2022-09-27 10:34] LABS: CALCIUM 7.7 mg/dL (8.5-10.1)
[2022-09-27 10:35] LABS: ALBUMIN 1.5 g/dl (3.4-5.0); BLOOD UREA NITROGEN 15.3 mg/dL (7-18)
[2022-09-27 10:38] LABS: CREATININE 0.4 mg/dL (0.55-1.3)
[2022-09-27 10:39] LABS: TOT PROT 4.2 g/dl (6.4-8.2)
[2022-09-27 10:40] LABS: BILIRUBIN,TOTAL 0.7 mg/dL (0.2-1)
[2022-09-27] MEDS: PANTOPRAZOLE SODIUM 40 MG VIAL IVPUSH SCH (12:01)
[2022-09-27] MEDS: ZINC SULFATE 220 MG CAPSULE (FP) PO SCH (12:01)
[2022-09-27] MEDS: MULTIVITAMINS (DAILY MVI) TABLET (FP) PO SCH (12:01)
[2022-09-27 12:03] LABS: BASO % 0.3 % (0-2.0); EOS % 0.1 % (0-4.5); HEMATOCRIT 28.6 % (32.4-45.2); HEMOGLOBIN 9.3 GM/dL (10.7-15.3); LYMPH % 8.4 % (8-40); MCH 28.5 pg (25.7-33.7); MCHC 32.5 g/dl (32.0-36.0); MEAN CELL VOLUME 87.6 fl (80-96); MONO % 6.8 % (3.8-10.2); NEUT % 84.4 % (42.8-82.8); PLATELET COUNT 56 10^3/uL (134-434); RBC 3.26 M/mm3 (3.60-5.2); WHITE BLOOD COUNT 4.7 K/mm3 (4.0-10.0)
[2022-09-27] MEDS: levETIRAcetam 500 MG/5 ML ORAL SOLUTION (UNIT-DOSE CUPS) GT SCH (17:59)
[2022-09-27] MEDS: ATORVASTATIN CA 20 MG TABLET (FP) GT SCH (21:03)
[2022-09-27] MEDS: FAMOTIDINE 40 MG/5 ML ORAL SUSPENSION GT SCH (21:03)
[2022-09-28] MEDS: levETIRAcetam 500 MG/5 ML ORAL SOLUTION (UNIT-DOSE CUPS) GT SCH ×2 (05:10→17:49)
[2022-09-28] MEDS: INSULIN SLIDING SCALE (NOVOLOG) 1 VIAL SQ SCH ×4 (06:41→23:31)
[2022-09-28] MEDS ORDERED: PANTOPRAZOLE 40 MG TABLET PO SCH (10:00)
[2022-09-28] MEDS: METOPROLOL TARTRATE 25 MG TABLET (FP) PEG SCH ×2 (10:56→23:16)
[2022-09-28] MEDS: FAMOTIDINE 40 MG/5 ML ORAL SUSPENSION GT SCH ×2 (10:56→23:16)
[2022-09-28] MEDS: MULTIVITAMINS (DAILY MVI) TABLET (FP) PO SCH (10:56)
[2022-09-28] MEDS: ZINC SULFATE 220 MG CAPSULE (FP) PO SCH (10:56)
[2022-09-28] MEDS: ASCORBIC ACID 500 MG TABLET (FP) PO SCH ×2 (10:56→23:16)
[2022-09-28] MEDS ORDERED: amLODIPine BESYLATE 5 MG TABLET (FP) GT ONE (13:00)
[2022-09-28] MEDS: ATORVASTATIN CA 20 MG TABLET (FP) GT SCH (23:16)
[2022-09-29] MEDS: levETIRAcetam 500 MG/5 ML ORAL SOLUTION (UNIT-DOSE CUPS) GT SCH (06:12)
[2022-09-29] MEDS: INSULIN SLIDING SCALE (NOVOLOG) 1 VIAL SQ SCH ×2 (06:15→13:01)
[2022-09-29 07:48] LABS: ALBUMIN 1.6 g/dl (3.4-5.0); BILIRUBIN,TOTAL 0.6 mg/dL (0.2-1); CALCIUM 7.4 mg/dL (8.5-10.1); CREATININE 0.3 mg/dL (0.55-1.3); TOT PROT 4.5 g/dl (6.4-8.2)
[2022-09-29] MEDS: METOPROLOL TARTRATE 25 MG TABLET (FP) PEG SCH (09:39)
[2022-09-29] MEDS: ZINC SULFATE 220 MG CAPSULE (FP) PO SCH (09:39)
[2022-09-29] MEDS: MULTIVITAMINS (DAILY MVI) TABLET (FP) PO SCH (09:39)
[2022-09-29] MEDS: ASCORBIC ACID 500 MG TABLET (FP) PO SCH (09:39)
[2022-09-29] MEDS: FAMOTIDINE 40 MG/5 ML ORAL SUSPENSION GT SCH (09:39)
[2022-09-29] MEDS ORDERED: amLODIPine BESYLATE 5 MG TABLET (FP) PO SCH (10:00)
[2022-09-29 19:40] VITALS: BP 139/84; PULSE 92; RESP 16; TEMP 97.9
== END 2022-09-29 13:02 | DRG 720 ==
LOC: JER 13:24 → JERBED 17:58 → JICU 19:33 → J5S 09-22 01:26
PROVIDERS: ADMIT Internal Medicine; ATTEND Internal Medicine
PROC: 5A1955Z Respiratory Ventilation, Greater than 96 Consecutive Hours (ICD-10-PCS; principal; 2022-09-14)
PROC: 30233N1 Transfusion of Nonautologous Red Blood Cells into Peripheral Vein, Percutaneous Approach (ICD-10-PCS; 2022-09-16)
PROC: 30233R1 Transfusion of Nonautologous Platelets into Peripheral Vein, Percutaneous Approach (ICD-10-PCS; 2022-09-19)
PROC: 05HM33Z Insertion of Infusion Device into Right Internal Jugular Vein, Percutaneous Approach (ICD-10-PCS; 2022-09-21)
PROC: B543ZZA Ultrasonography of Right Jugular Veins, Guidance (ICD-10-PCS; 2022-09-21)
DX: A41.9 Sepsis, unspecified organism (principal); D65 Disseminated intravascular coagulation [defibrination syndrome]; E11.10 Type 2 diabetes mellitus with ketoacidosis without coma; I21.A1 Myocardial infarction type 2; J18.9 Pneumonia, unspecified organism; L89.154 Pressure ulcer of sacral region, stage 4; R65.21 Severe sepsis with septic shock; J96.11 Chronic respiratory failure with hypoxia; R53.2 Functional quadriplegia; Z93.0 Tracheostomy status; E87.0 Hyperosmolality and hypernatremia; I69.351 Hemiplegia and hemiparesis following cerebral infarction affecting right dominant side; E87.6 Hypokalemia; K56.41 Fecal impaction; N39.0 Urinary tract infection, site not specified; Z99.11 Dependence on respirator [ventilator] status; D61.818 Other pancytopenia; Z16.12 Extended spectrum beta lactamase (ESBL) resistance; D64.9 Anemia, unspecified; R74.01 Elevation of levels of liver transaminase levels; K72.00 Acute and subacute hepatic failure without coma; I95.9 Hypotension, unspecified
CPT/HCPCS: 0241U-QW; 36415; 36430; 36600; 71045-TC-FY; 71260-TC; 74018-TC-FY; 74177-TC; 80048; 80053; 80076; 81003; 82010; 82150; 82550; 82553; 82607; 82728; 82746; 82803; 82962; 83010; 83605; 83615; 83690; 83735; 83930; 84100; 84439; 84443; 84484; 85025; 85027; 85045; 85362; 85379; 85384; 85610; 85730; 86022; 86850; 86900; 86901; 86922; 87040; 87086; 87186; 87899; 93005; 93010; 93306-TC; 94002; 99285-25; C9803-CS; G0480; J0878; J3480; P9034; P9058; U0003; U0005